=== PATIENT | female | born 1965 | race Caucasian/White ===

== ENCOUNTER 2022-01-12 06:36 | Outpatient (REF) | payer OTHER, SELFPAY ==
[2022-01-12 11:11] LABS: MANUAL DIFF FLAG NO
[2022-01-12 11:22] LABS: Basophils Percent Auto 0.4 % (0-2); Eosinophils Absolute Auto 0.2 X10*3/uL (0.0-0.4); Hemoglobin 13.1 g/dl (12.0-16.0); Imm Gran Abs Auto 0.01 X10*3/uL (0.00-0.03); Imm Gran Pct Auto 0.2 % (0.0-0.4); Lymphocytes Absolute Auto 2.6 X10*3/uL (1.2-4.9); Lymphocytes Percent Auto 49.1 % (20-40); Mean Corpuscular Hemoglobin 29.4 pg (27.0-33.0); Mean Corpuscular Volume 91.9 fL (80.0-98.0); Mean Platelet Volume 10.2 fL (9.4-12.3); Monocytes Absolute Auto 0.5 X10*3/uL (0.1-1.2); Monocytes Percent Auto 9.9 % (2-11); Neutrophils Percent Auto 37.4 % (45-73); Platelet Count 278 X10*3/uL (160-400); Red Blood Count 4.46 X10*6/uL (4.20-5.50); Red Cell Distribution Width 13.4 % (11.0-16.0); White Blood Count 5.3 X10*3/uL (4.8-10.8)
[2022-01-12 11:33] LABS: Appearance Urine CLEAR; Color Urine YELLOW; Glucose Urine UA NEG (NEG); Leukocyte Esterase Urine NEG (NEG); Nitrite Urine NEG (NEG); Specific Gravity - Urine 1.015 (1.005-1.025); Urine Blood NEG (NEG); Urine Ketones NEG (NEG); Urine Protein NEG (NEG-TRACE)
[2022-01-12 11:42] LABS: Alanine Aminotransferase 18 U/L (0-31); Albumin Level 4.1 g/dL (3.5-5.0); Alkaline Phosphatase 65 U/L (39-117); Anion Gap 13 (12-20); Aspartate Amino Transferase 18 U/L (5-31); Bilirubin Total 0.5 mg/dL (0.0-1.0); Blood Urea Nitrogen 15 mg/dL (9-16); Calcium 9.4 mg/dL (8.4-10.2); Carbon Dioxide 25 mmol/L (22-29); Chloride 106 mmol/L (96-108); Cholesterol 179 mg/dL; Estimated Glomerular Filt Rate > 60; Glucose Fasting 88 mg/dL (60-99); HDL Cholesterol 59 mg/dL; LDL Cholesterol Calculated 113 mg/dl; Potassium 4.5 mmol/L (3.3-5.1); Sodium 139 mmol/L (135-145); Total Protein 6.5 g/dL (6.5-8.0); Triglycerides 37 mg/dL
[2022-01-12 12:06] LABS: TSH reflex Free T4 2.45 uIU/mL (0.32-4.0); Vitamin D 25-OH Total 54.8 ng/mL (>30)
== END 2022-01-12 06:37 | disposition home or self-care (01) ==
LOC: HO.HMGCLDS 06:36
PROVIDERS: Visit Provider Nurse Practitioner Family
DX: M19.90 Unspecified osteoarthritis, unspecified site (principal); Z86.79 Personal history of other diseases of the circulatory system
CPT/HCPCS: 36415; 80053; 80061; 81003; 82306; 84443; 85025

== ENCOUNTER → 2022-02-02 07:01 | Outpatient (REF) | payer OTHER, SELFPAY ==
--- NOTE | 2022-02-02 07:05 | HM_ITS ---
* Total monitoring time 3 days and 11 hours. * Underlying rhythm is sinus. Average rate 74/Min. Range 56 to 124/Min. * Rare supraventricular ectopy with minimal burden. One short run of 11 beats. * Very rare ventricular ectopy. * No sustained arrhythmias. * No patient events. MTDD
== END ==
LOC: HO.CARD 07:01
PROVIDERS: PCP Nurse Practitioner Family; Visit Provider Nurse Practitioner Family
DX: R00.2 Palpitations (principal); Z86.79 Personal history of other diseases of the circulatory system
CPT/HCPCS: 93242

== ENCOUNTER → 2022-03-09 07:40 | Outpatient (REF) | payer OTHER, SELFPAY ==
--- NOTE | 2022-03-09 07:42 | CA_ITS ---
Transthoracic Echocardiogram Patient (Last, First, Middle): Kindra Mak J Gender: Female Date of : 1965 Age: 56 Procedure Date: 03/09/2022 Procedure Type: Transthoracic Echocardiogram Location: OP Height: 154.94 cm Weight: 76.66 kg BSA: 1.76 m2 Heart Rate: bpm BP: 108 / 68 mmHg Track Patrol: KAILEY Zapien MD: Tanvir Garsia [facility] Inspector And Clipper: Erasmo Duvall MD Symptoms: R01.1 - Cardiac murmur, unspecified Study Quality: Good ECG Rhythm: Sinus Conclusions: - Normal study Findings Left Ventricle Normal left ventricular size, thickness, and systolic function. The visually estimated ejection fraction is between 55-60%. Spectral Doppler is indicative of a normal filling pattern. Peak GLS is -18.8%, within normal limits Right Ventricle Normal right ventricular cavity size and systolic function. Atria Both atria are normal in size. There is a mobile atrial septum noted. There is no evidence of interatrial shunt. Aortic Valve Normal aortic valve structure and function. There is no aortic valve stenosis. There is no aortic valve regurgitation. Mitral Valve There is mild anterior and posterior mitral leaflet thickening. There is trace mitral valve regurgitation. There is no mitral valve stenosis. Pulmonic Valve The pulmonic valve was not well visualized. Tricuspid Valve Normal tricuspid valve structure. There is no tricuspid valve regurgitation. The right ventricular systolic pressure is normal. The right ventricular systolic pressure is 20 mmHg. Normal right atrial pressure. There is no evidence of pulmonary hypertension. Great Vessels All visible segments of the aorta are normal in size. The pulmonary artery was not well visualized. Venous The inferior vena cava is normal in size and collapses greater than 50% with inspiration. Pericardium/Pleural There is no evidence of pericardial effusion. Prior Study Comparison No prior study available for comparison. Measurements 2D Linear Measurements IVSd: 0.89 0.6-0.9/0.6-1.0 cm LVIDd: 4.81 3.9-5.3/4.2-5.9 cm LVIDd Index: 2.73 2.4-3.2/2.2-3.1 cm/m2 LVIDs: 3.09 2.0-3.6 cm LVPWd: 0.86 0.7-1.1 cm LA Diam: 3.30 2.7-3.8/3.0-4.0 cm LAIDs Index: 1.88 1.5-2.3 cm/m2 LV Mass: 177.32 67-162/88-224 g LV Mass Index: 100.75 43-95/49-115 g/m2 LVOT Diam: 1.90 3.0+(-)1.3 cm 2D Systolic Function EF 4C: 54.90 >55% EF 2C: 59.80 >55% EF BiP: 56.90 >55% Mitral Valve MV Pk E: 0.74 MV PK A: 0.80 MV Decel Time: 206.00 E/A: 0.90 E'Lateral: 11.20 E'Medial: 8.16 E/E' Med: 9.00 E/E' Lat: 6.60 PHT: 60.00 MVA PHT: 3.67 Decel Baca: 3.57 Aortic Valve AoV Pk George: 1.46 AoV Mn George: 1.00 AoV VTI: 0.31 AoV Pk Grad: 9.00 Aov Mn Grad: 4.00 ALYSIA Cont.VTI: 2.58 LVOT LVOT Pk George: 1.32 LVOT Mn George: 0.88 LVOT VTI: 0.28 LVOT Pk Grad: 7.00 LVOT Mn Grad: 4.00 LVOT Diam: 1.90 LVOT Area: 2.84 Diastolic Function MV Pk E: 0.74 MV Pk A: 0.80 E/A: 0.90 E'Medial: 8.16 E/E' Med: 9.00 E' Laterial: 11.20 E/E' Lat: 6.60 Right Ventricle TAPSE (mm): 25.20 TVS' George: 12.10 Tricuspid Valve TR Pk George: 2.06 TR Pk Grad: 17.00 RA Press: 3.00 RVSP: 20.00 Great Vessels Aorta Sinus of Valsalva: 2.53 2.0-3.[address] Ridge: 2.26 1.7-3.4 cm Ao Asc: 2.80 2.1-3.4 cm Ao Arch: 2.40 Updated in Other Vendor System with Status of Final Erasmo Duvall MD electronically signed on 03/09/2022 10:47:35 AM with status of Final
== END ==
LOC: HO.CARD 07:40
PROVIDERS: PCP Nurse Practitioner Family; Visit Provider Nurse Practitioner Family
DX: R01.1 Cardiac murmur, unspecified (principal)
CPT/HCPCS: 93306; 93356

== ENCOUNTER 2022-04-17 18:34 | Outpatient (REF) | payer OTHER, SELFPAY ==
[2022-04-17 19:49] LABS: Influenza A PCR NEGATIVE (Negative); Influenza B PCR NEGATIVE (Negative); Resp Syncy Virus RNA Qual PCR NEGATIVE (Negative); SARS COV2 PCR INHOUSE NEGATIVE (Negative)
== END 2022-04-17 18:35 | disposition home or self-care (01) ==
LOC: HO.LNP 18:34
PROVIDERS: Visit Provider Physician Assistant
DX: Z20.822 Contact with and (suspected) exposure to COVID-19 (principal); J02.9 Acute pharyngitis, unspecified
CPT/HCPCS: 0241U

== ENCOUNTER 2022-05-04 17:00 | Outpatient (RCR) | payer OTHER, SELFPAY ==
--- NOTE | 2022-04-21 16:56 | MHC.PT.EP ---
[facility] [place] Office [place] Office [place] Office [address] Gurmeet Mercedes [address] [phone] F: [phone] F: [phone] F: [phone] F: [phone] Physical Therapy Plan of Care Date of Evaluation: Date of Surgery: Diagnosis: R ITB syndrome Assessment: Pt is a 56 y/o female referred to PT for eval and treat of R illiotibial band syndrome who presents with R hip dysfunction resulting in decreased tolerance for standing for duration, walking at a fast pace, performing R LE dressing, and well as walking long distances secondary to decreased R hip ROM and strength, decreased core strength, mild gait abnormality, presence of R BENJAMIN x 2 years, increased L thigh tissue tension and pain. Pt is deemed an appropriate candidate to receive skilled PT in order to address her physical limitations to improve her functional ability. Frequency and Duration: The patient will be seen 2 x / wk x 5 wks. Short Term Goals: Initiate HEP. Improve baseline pain to < 3/10; initial: 4/10. 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 Improve R hip abd MMT by at least 1/2 MMT grade; initial 4/5. Pt will be able to stand 1 hour with at most a little bit of difficulty; initial: quite a bit of difficulty. Pt will be able to dress R shoe/ sock with minimal difficulty; initial: quite a bit of difficulty. Treatment Plan: Modalities to reduce pain, spasms and effusion. Manual therapy to restore motion and function. Therapeutic exercise to improve strength and flexibility. Neuromuscular re-education for posture and balance. Therapeutic activities to return to functional activities of daily living. Electronically signed by: Khang Farias PT. Please sign and return to therapist. Thank you for your referral.
--- NOTE | 2022-11-21 14:12 | MHC.PT.DC ---
[facility] [place] Office [place] Office [place] Office [address] Gurmeet Mercedes [address] [phone] F: [phone] F: [phone] F: [phone] F: [phone] Physical Therapy Discharge Report Diagnosis: R ITB syndrome Date of Surgery: Date of Evaluation: 04/21/22 Date of Discharge: 11/21/22 Treatments to Date: 2 Cancellations to Date: 4 No Shows to Date: Discharge Status: Visit Non-compliance Discharge Summary: Electronically signed by: Khang Farias PT. Please sign and return to therapist. Thank you for your referral.
== END 2022-11-21 14:14 | disposition home or self-care (01) ==
LOC: HO.PTCHIC 17:00
PROVIDERS: PCP Nurse Practitioner Family; Visit Provider Nurse Practitioner Family
DX: M76.30 Iliotibial band syndrome, unspecified leg (principal)
CPT/HCPCS: 97110; 97161

== ENCOUNTER 2022-07-12 09:09 | Outpatient (REF) | payer OTHER, SELFPAY ==
--- NOTE | ~2022-07-12 | MM_ITS ---
EXAMINATION: MM SCREENING DIGITAL BREAST TOMOSYNTHESIS, BILATERAL CLINICAL INFORMATION: Screening. Asymptomatic. The lifetime risk of breast cancer based on the Tyrer-Cuzick Model is 6.4%. COMPARISON: Mammography: June 23, 2021 and June 15, 2020 TECHNIQUE: Digital breast tomosynthesis is performed in both the craniocaudal and mediolateral oblique views along with computer-aided detection (CAD). Synthesized 2D images are generated from the tomosynthesis. FINDINGS: There are scattered areas of fibroglandular density (ACR BI-RADS breast composition Category b). There is stable parenchymal pattern of the left breast without new abnormal dominant mass or suspicious grouping of microcalcifications. Nodular breast parenchyma present. Within the right breast there is a nodular parenchymal pattern seen with multiple 3 mm circumscribed densities upper outer aspect some containing fatty clefts and difficult to compare to previous studies were nodular densities were present as well. MM/MM tomosynthesis screening BI IMPRESSION: Essentially stable appearance of the breasts as described. ASSESSMENT: BI-RADS 2: Benign RECOMMENDATION: Routine annual mammography screening. This patient's information was entered into a reminder system with a target due date for their next mammogram.
== END 2022-07-12 09:10 | disposition home or self-care (01) ==
LOC: HO.MAMMO 09:09
PROVIDERS: PCP Nurse Practitioner Family; Visit Provider Nurse Practitioner Family
DX: Z12.31 Encounter for screening mammogram for malignant neoplasm of breast (principal)
CPT/HCPCS: 77063; 77067

== ENCOUNTER 2022-07-17 08:27 | Outpatient (REF) | payer OTHER, SELFPAY ==
--- NOTE | ~2022-07-17 | XR_ITS ---
EXAMINATION: XR FOOT, LEFT CLINICAL INFORMATION: Pain in the left ankle and foot, osteoarthritis. COMPARISON: None TECHNIQUE: AP, lateral, and oblique views of the left foot. FINDINGS: The bones and soft tissues are normal. No fracture. Alignment is anatomic. There is small plantar calcaneal spur. Joint spaces are maintained. XR/XR foot LT min 3V IMPRESSION: Small plantar calcaneal spur
== END 2022-07-17 08:28 | disposition home or self-care (01) ==
LOC: HO.HMGCX 08:27
PROVIDERS: PCP Nurse Practitioner Family; Visit Provider Internal Medicine
DX: M19.072 Primary osteoarthritis, left ankle and foot (principal)
CPT/HCPCS: 73630

== ENCOUNTER 2022-10-04 09:25 | Outpatient (REF) | payer OTHER, SELFPAY ==
[2022-10-04 11:14] LABS: Appearance Urine Hazy; Color Urine Yellow; Glucose Urine UA Negative (Negative); Leukocyte Esterase Urine Negative (Negative); Nitrite Urine Negative (Negative); PH 7.5 (5.0-9.0); Specific Gravity - Urine 1.015 (1.005-1.025); Urine Blood Negative (Negative); Urine Ketones Negative (Negative); Urine Protein Negative (Neg-Trace)
[2022-10-04 11:37] LABS: MANUAL DIFF FLAG NO
[2022-10-04 11:56] LABS: Basophils Percent Auto 0.5 % (0-2); Eosinophils Absolute Auto 0.2 X10*3/uL (0.0-0.4); Eosinophils Percent Auto 2.7 % (0-4); Hematocrit 42.6 % (37.0-47.0); Hemoglobin 13.7 g/dl (12.0-16.0); Imm Gran Abs Auto 0.07 X10*3/uL (0.00-0.03); Imm Gran Pct Auto 1.1 % (0.0-0.4); Lymphocytes Absolute Auto 2.9 X10*3/uL (1.2-4.9); Lymphocytes Percent Auto 44.8 % (20-40); Mean Corpuscular HGB Conc 32.2 g/dl (31.0-35.0); Mean Corpuscular Hemoglobin 29.8 pg (27.0-33.0); Mean Corpuscular Volume 92.8 fL (80.0-98.0); Mean Platelet Volume 9.7 fL (9.4-12.3); Monocytes Absolute Auto 0.6 X10*3/uL (0.1-1.2); Monocytes Percent Auto 9.1 % (2-11); Neutrophils Absolute Auto 2.7 x10*3/uL (2.0-8.3); Neutrophils Percent Auto 41.8 % (45-73); Platelet Count 315 X10*3/uL (160-400); Red Blood Count 4.59 X10*6/uL (4.20-5.50); Red Cell Distribution Width 13.8 % (11.0-16.0); White Blood Count 6.4 X10*3/uL (4.8-10.8)
[2022-10-04 12:39] LABS: Alanine Aminotransferase 16 U/L (0-31); Albumin Level 4.1 g/dL (3.5-5.0); Alkaline Phosphatase 79 U/L (39-117); Anion Gap 11 (12-20); Aspartate Amino Transferase 15 U/L (5-31); Bilirubin Total 0.7 mg/dL (0.0-1.0); Blood Urea Nitrogen 13 mg/dL (9-16); C Reactive Protein 0.39 mg/dL (< or = 0.50); Calcium 9.2 mg/dL (8.4-10.2); Carbon Dioxide 29 mmol/L (22-29); Chloride 108 mmol/L (96-108); Cholesterol 200 mg/dL; Estimated Glomerular Filt Rate > 60; Glucose Fasting 90 mg/dL (60-99); HDL Cholesterol 57 mg/dL; LDL Cholesterol Calculated 134 mg/dl; Potassium 4.8 mmol/L (3.3-5.1); Sodium 143 mmol/L (135-145); Total Protein 6.4 g/dL (6.5-8.0); Triglycerides 47 mg/dL
[2022-10-04 12:48] LABS: Erythrocyte Sedimentation Rate 4 MM/HR (0-20)
[2022-10-04 12:55] LABS: TSH reflex Free T4 1.33 uIU/mL (0.32-4.0)
== END 2022-10-04 09:26 | disposition home or self-care (01) ==
LOC: HO.HMGCLDS 09:25
PROVIDERS: PCP Nurse Practitioner Family; Visit Provider Nurse Practitioner Family
DX: M19.90 Unspecified osteoarthritis, unspecified site (principal)
CPT/HCPCS: 36415; 80053; 80061; 81003; 84443; 85025; 85652; 86140

== ENCOUNTER 2023-04-18 08:30 | Outpatient (AMB) | payer OTHER, SELFPAY ==
--- NOTE | 2023-04-18 08:32 | MHC.OFFWIV ---
Intake Vital Signs 04/18/23 08:35 BP 110/70 Blood Pressure Location Lt brachial Position Sitting Pulse 78 Pulse Source Pulse Oximeter Temp 98.3 F Temp Source Oral Pulse Oximetry (%) 95 Oxygen Delivery Method Room Air Intake Visit Reasons: EP sore throat, head (lobby, masked) Intake Note: Patient here for sore throat, bodyaches and headaches which started yesterday. Patient Tobacco Use Status: Never used Tobacco Allergies amoxicillin [From Augmentin] Allergy (Severe, Verified 04/18/23 08:35) Anaphylaxis clavulanic acid [From Augmentin] Allergy (Severe, Verified 04/18/23 08:35) Anaphylaxis Penicillins Allergy (Severe, Verified 04/18/23 08:35) Anaphylaxis Do you need a note to return to daycare/school/sports/work: No HPI EP sore throat, head (lobby, masked) HPI Details Patient presents today sore throat, headache, body ache which started yesterday. She denies any fever, chills, cough, shortness of breath, or GI symptoms. She denies any known exposure to sick contacts. [facility] Medical History Arthritis Surgical History History of carpal tunnel surgery History of cholecystectomy History of endometrial ablation History of right hip replacement Hx of tonsillectomy Family History Mother Hypertension Maternal Grandmother Colon cancer Social History Housing: House Patient Tobacco Use Status: Never used Tobacco e-Cigarette/Vaping Use: Never Used Second Hand Smoke Exposure: No Current occupational status: employed Cognitive needs: No Hearing needs: No Vision needs: No Review of Systems Const All systems reviewed & are unremarkable except as noted in HPI and below Physical Exam Vital Signs: Last Vital Signs Temp 98.3 F 04/18/23 08:35 Pulse 78 04/18/23 08:35 BP 110/70 04/18/23 08:35 Pulse Ox 95 04/18/23 08:35 Oxygen Delivery Method Room Air 04/18/23 08:35 Const General: cooperative and no acute distress HEENT Head: Yes normal to inspection Ears: hearing grossly normal bilaterally, external ears normal and TM's normal bilaterally General nose exam: Normal external nose present and Normal nasal mucous membranes and turbinates present Face and sinus: Yes normal facial exam and Yes sinuses nontender Mouth: Normal oral and palatal mucosa present and moist mucous membranes Throat: Yes posterior oropharynx abnormal (Erythematous, mild tonsillar hypertrophy) Neck Neck: Yes no lymphadenopathy Resp Effort & Inspection: normal respiratory effort and able to speak in complete sentences Auscultation: clear to auscultation bilaterally Cardio Jugular venous distension: no JVD Palpation: normal PMI Rate: regular rate Rhythm: regular rhythm Skin General skin exam: no rashes or lesions noted Extrem General: Yes capillary refill normal and Yes no clubbing, cyanosis or edema Psych Appearance: grossly normal Mental Status: mental status grossly normal Speech and movement: Normal speech and movement present Results AMB Rapid Strep AMB Rapid Strep Negative Last Edit by Sandra Alexander CMA on 04/18/23 08:45 Results Reviewed Results Reviewed: Laboratory Last Values Strep Scn Rapid Clinic Negative 04/18/23 08:45 Assessment & Plan Assessment & Plan (1) Pharyngitis: Code(s): J02.9 - Acute pharyngitis, unspecified Qualifiers: Pharyngitis/tonsillitis etiology: unspecified etiology Qualified Code(s): J02.9 - Acute pharyngitis, unspecified Plan Patient with a 2 day history of sore throat, headache, body ache. Rapid strep in the office was negative. Discussed with patient likelihood that this is a viral illness and symptoms are self-limiting. She has the next couple of days off work, encouraged her to rest, hydrate, and take Tylenol/Motrin, lozenges for any symptomatic treatment. I offered viral testing, however she declined. She states she has at-home COVID tests. If she does not improve with time and conservative measures, or if symptoms worsen or new symptoms develop, she should return to the clinic for further evaluation. She agrees to plan. Orders: Orders AMB Rapid Strep Screen Today Z13.9 - Encounter for screening, unspecified Coding Level of Care Code Est Pt Level 3 (32310) Diagnoses Pharyngitis J02.9 Pharyngitis/tonsillitis etiology: unspecified etiology
[2023-04-18 08:35] VITALS: BP 110/70; PULSE 78; TEMP 36.8; O2SAT 95
== END 2023-04-18 09:04 | disposition home or self-care (01) ==
PROVIDERS: PCP Nurse Practitioner Family; Visit Provider Nurse Practitioner Family
DX: J02.9 Acute pharyngitis, unspecified (principal)
CPT/HCPCS: 87880; 99213

== ENCOUNTER 2023-05-09 16:10 | Outpatient (REF) | payer OTHER, SELFPAY ==
--- NOTE | ~2023-05-09 | XR_ITS ---
EXAMINATION: XR SHOULDER, RIGHT CLINICAL INFORMATION: Pain COMPARISON: None available. TECHNIQUE: Four views of the right shoulder. FINDINGS: No acute visible fracture or dislocation. Mild degenerative arthropathy of the glenohumeral chronic clavicular joint. Joint spaces and alignment are otherwise maintained. Soft tissues are unremarkable. Visualized portions of the right chest are unremarkable. XR/XR shoulder RT min 2V IMPRESSION: 1. No acute visible fracture or dislocation. 2. Mild degenerative arthropathy of the glenohumeral joint.
== END 2023-05-09 16:11 | disposition home or self-care (01) ==
LOC: HO.HMGCX 16:10
PROVIDERS: PCP Nurse Practitioner Family; Visit Provider Nurse Practitioner Family
DX: M25.511 Pain in right shoulder (principal)
CPT/HCPCS: 73030

== ENCOUNTER 2023-06-13 08:01 | Outpatient (AMB) | payer OTHER, SELFPAY ==
[2023-06-13 08:03] VITALS: BP 122/76; PULSE 64; TEMP 36.1; O2SAT 97; BMI 35.1
--- NOTE | 2023-06-13 08:03 | AM.OFFWIN_ITS ---
Intake Vital Signs 06/13/23 08:03 Height 5 ft 1.5 in Weight 189 lb BMI 35.1 BP 122/76 Blood Pressure Location Rt brachial Position Sitting Pulse 64 Pulse Source Pulse Oximeter Temp 97.0 F Temp Source Temporal Artery Scan Pulse Oximetry (%) 97 Oxygen Delivery Method Room Air Intake Visit Reasons: EST/wheezing X4 weeks Intake Note: pt is here for c/o wheezing for 4x weeks Patient Tobacco Use Status: Never used Tobacco Allergies amoxicillin [From Augmentin] Allergy (Severe, Verified 06/13/23 08:03) Anaphylaxis clavulanic acid [From Augmentin] Allergy (Severe, Verified 06/13/23 08:03) Anaphylaxis Penicillins Allergy (Severe, Verified 06/13/23 08:03) Anaphylaxis Medication List - Last Reconciled 06/13/23 by Kang Andrews MD albuterol sulfate 90 mcg/actuation 1 inh inhalation QID PRN loratadine (Claritin) 10 mg PO DAILY multivitamin 1 tab PO DAILY Do you need a note to return to daycare/school/sports/work: Yes HPI EST/wheezing X4 weeks HPI Details Patient presents for a sick visit. Reporting symptoms of sinus congestion, sore throat and difficulty swallowing. Low-grade fever. No family member is sick. No recent travel. Patient reports symptoms of malaise and fatigue. Symptoms present for the past 4 weeks. [facility] Medical History Arthritis Surgical History History of carpal tunnel surgery History of cholecystectomy History of endometrial ablation History of right hip replacement Hx of tonsillectomy Family History Mother Hypertension Maternal Grandmother Colon cancer Social History Housing: House Patient Tobacco Use Status: Never used Tobacco e-Cigarette/Vaping Use: Never Used Second Hand Smoke Exposure: No Current occupational status: employed Cognitive needs: No Hearing needs: No Vision needs: No Physical Exam Vital Signs: Last Vital Signs Temp 97.0 F 06/13/23 08:03 Pulse 64 06/13/23 08:03 BP 122/76 06/13/23 08:03 Pulse Ox 97 06/13/23 08:03 Oxygen Delivery Method Room Air 06/13/23 08:03 BMI result Body Mass Index 35.1 Const General: cooperative and healthy appearing Nutritional Appearance: well nourished Orientation/consciousness: patient oriented x3 Limitations: no limitations HEENT Head: Yes normal to inspection Eyes General: appearance normal, both eyes and all related structures Neck Neck: Yes normal visual inspection Chest Chest palpation & inspection: normal palpation of entire chest wall Resp Effort & Inspection: normal respiratory effort Neuro General: patient oriented x3 Assessment & Plan Assessment & Plan (1) Acute bronchitis: Code(s): J20.9 - Acute bronchitis, unspecified Qualifiers: Bronchitis organism: unspecified organism Qualified Code(s): J20.9 - Acute bronchitis, unspecified Plan Chest x-ray images personally reviewed by me. No pneumonia is seen. Antibiotic and inhaler called in. If symptoms do not improve patient was advised to follow-up here. 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 Folic acid levels Are reported greater than 40. In addition the lab showed thyroid abnormalities. The same was informed to the patient. Orders: Orders XR chest 2V Today R05.9 - Cough, unspecified Coding Level of Care Code Est Pt Level 4 (80350) Diagnoses Acute bronchitis, unspecified organism J20.9 Bronchitis organism: unspecified organism
== END 2023-06-13 09:01 | disposition home or self-care (01) ==
PROVIDERS: PCP Nurse Practitioner Family; Visit Provider Internal Medicine
DX: J20.9 Acute bronchitis, unspecified (principal)
CPT/HCPCS: 99214

== ENCOUNTER 2023-06-13 08:31 | Outpatient (REF) | payer OTHER, SELFPAY ==
--- NOTE | ~2023-06-13 | XR_ITS ---
EXAMINATION: XR CHEST CLINICAL INFORMATION: Cough COMPARISON: None available. TECHNIQUE: 2 views of the chest were obtained. FINDINGS: Cardiac silhouette is normal in size. The lungs are well aerated. There is no lobar consolidation. No pleural effusion or pneumothorax. Minimal degenerative changes of the spine. XR/XR chest 2V IMPRESSION: No acute pulmonary pathology.
== END 2023-06-13 08:32 | disposition home or self-care (01) ==
LOC: HO.HMGCX 08:31
PROVIDERS: PCP Nurse Practitioner Family; Visit Provider Internal Medicine
DX: R05.9 Cough, unspecified (principal)
CPT/HCPCS: 71046

== ENCOUNTER 2023-06-27 07:26 | Outpatient (AMB) | payer OTHER, SELFPAY ==
--- NOTE | 2023-06-27 07:37 | MHC.PC.OV ---
Vital Signs 06/27/23 07:38 Height 5 ft 1.5 in Weight 186 lb 2 oz BMI 34.6 BP 110/76 Blood Pressure Location Rt brachial Position Sitting Pulse 61 Pulse Source Pulse Oximeter Pulse Oximetry (%) 96 Oxygen Delivery Method Room Air Intake Visit Reasons: PE Allergies amoxicillin [From Augmentin] Allergy (Severe, Verified 06/27/23 07:43) Anaphylaxis clavulanic acid [From Augmentin] Allergy (Severe, Verified 06/27/23 07:43) Anaphylaxis Penicillins Allergy (Severe, Verified 06/27/23 07:43) Anaphylaxis Medication List - Last Reconciled 06/27/23 by TRICIA Salmon-SHIRA albuterol sulfate 90 mcg/actuation 1 inh inhalation QID PRN loratadine (Claritin) 10 mg PO DAILY multivitamin 1 tab PO DAILY Tobacco use date assessed: 06/27/23 Dental Screening Dental Screen Date: 06/27/23 Did you have a dental visit in the last 12 months?: Yes Did you have a dental problem in the last 6 months where you did not have access to dental care?: No Was dental information given to patient?: Patient has dentist HPI PE HPI Details mammo is up to date and scheduled for this year. 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 Pt would like to start a SSRI for anxiety/depression. Denies any SI or HI. Pt reports that she has a Hx of B12 def. Tong recheck, takes a b12 supplement daily. [facility] Medical History Arthritis Surgical History History of endometrial ablation Hx of tonsillectomy History of carpal tunnel surgery History of cholecystectomy History of right hip replacement Family History Mother Hypertension Maternal Grandmother Colon cancer Social History Housing: House Patient Tobacco Use Status: Never used Tobacco e-Cigarette/Vaping Use: Never Used Second Hand Smoke Exposure: No Current occupational status: employed Cognitive needs: No Hearing needs: No Vision needs: No Questionnaire Thrive Questionnaire Date Thrive assessed: 09/27/22 ROSA MARIA-7 AMB Questionnaire ROSA MARIA-7 Date ROSA MARIA - 7 assessed: 09/27/22 Source: Developed by Drs. Sly Montes, Rosibel Craig, Kunal Jewell and colleagues, with an educational edgar from [employer]. Review of Systems Const Denies chills and Denies fever(s) Eyes Denies blurry vision ENT Denies vertigo, Denies dizziness and Denies sore throat Card Denies chest pain at rest, Denies chest pain with activity, Denies diaphoresis, Denies dyspnea and Denies dyspnea on exertion Resp Denies cough, Denies dyspnea, Denies dyspnea on exertion and Denies wheezing GI Denies abdominal pain, Denies melena, Denies hematochezia, Denies constipation, Denies diarrhea and Denies loose stools Denies hematuria Musc Denies numbness and Denies tingling Skin/Breast Denies lesions Neuro Denies vertigo, Denies dizziness, Denies numbness and Denies tingling Psych Denies anxiety, Denies depression, Denies homicidal ideation, Denies suicidal ideation and Denies other (substance abuse) Aller/Immun Denies wheezing Physical exam (Primary Care) BMI result Body Mass Index 34.6 Tobacco/Smoking Status: Tobacco use Status Tobacco use date assessed 02/21/23 06/13/23 07:56 Patient Tobacco Use Status Never used Tobacco 06/13/23 08:05 e-Cigarette/Vaping Use Never Used 06/13/23 07:56 Thrive Assessment: Date of Thrive Assessment Date Thrive assessed 09/27/22 06/13/23 07:56 Const General: cooperative Nutritional Appearance: well nourished and obese Orientation/consciousness: patient oriented x3 HENMT Head: Yes normal to inspection, Yes normocephalic and Yes atraumatic Ears: TM normal on the right and TM normal on the left Eyes General: appearance normal, both eyes and all related structures Alignment and Position: alignment normal and position normal Neck Neck: Yes normal visual inspection and Yes no lymphadenopathy Resp Effort & Inspection: normal respiratory effort Auscultation: clear to auscultation bilaterally Cardio Rate: regular rate Rhythm: regular rhythm Heart sounds: S1 normal heart sound present, S2 normal heart sound present and no murmurs GI Palpation (GI): Soft to palpation and nontender Auscultation: normal bowel sounds Skin Rashes: no rashes Neuro General: patient oriented x3, moves all extremities, no focal motor deficits and deep tendon reflexes 2+ bilaterally Romberg Test: Negative Extrem Right lower extremity: no edema Left lower extremity: no edema Psych Affect: normal affect Attitude: cooperative Thought process: Normal thought process present Assessment and Plan Assessment & Plan (1) Physical exam: Code(s): Z00.00 - Encounter for general adult medical examination without abnormal findings (2) Thyroid nodule: Code(s): E04.1 - Nontoxic single thyroid nodule Plan: us ordered (3) B12 deficiency: Code(s): E53.8 - Deficiency of other specified B group vitamins Plan: b12 level being checked (4) Anxiety and depression: Code(s): F41.9 - Anxiety disorder, unspecified; F32.A - Depression, unspecified Plan: starting citalopram Orders: Orders Complete Blood Count Auto Diff Today Z00.00 - Encounter for general adult medical examination without abnormal findings Comprehensive Spencer. Panel Fast Today Z00.00 - Encounter for general adult medical examination without abnormal findings UA CC w/rflx Micro + Cult Today Z00.00 - Encounter for general adult medical examination without abnormal findings US thyroid Today E04.1 - Nontoxic single thyroid nodule Vitamin B12 and Folate Today E53.8 - Deficiency of other specified B group vitamins TSH reflex Free T4 Today Z00.00 - Encounter for general adult medical examination without abnormal findings Lipid Panel Today Z00.00 - Encounter for general adult medical examination without abnormal findings Medications: New citalopram 10 mg PO DAILY 90 days 90 tabs 0RF Coding Level of Care Code Est Pt Prev Care 40-64y(39547) Diagnoses Physical exam Z00.00 Thyroid nodule E04.1 B12 deficiency E53.8 Anxiety and depression F41.9; F32.A
[2023-06-27 07:38] VITALS: BP 110/76; PULSE 61; O2SAT 96; BMI 34.6
== END 2023-06-27 08:18 | disposition home or self-care (01) ==
PROVIDERS: Visit Provider Nurse Practitioner Family
DX: Z00.00 Encounter for general adult medical examination without abnormal findings (principal); E04.1 Nontoxic single thyroid nodule; E53.8 Deficiency of other specified B group vitamins; F41.9 Anxiety disorder, unspecified; F32.A Depression, unspecified
CPT/HCPCS: 99396

== ENCOUNTER 2023-06-27 08:20 | Outpatient (REF) | payer OTHER, SELFPAY ==
[2023-06-27 11:21] LABS: MANUAL DIFF FLAG NO
[2023-06-27 11:26] LABS: Appearance Urine Clear; Color Urine Yellow; Glucose Urine UA Negative (Negative); Leukocyte Esterase Urine Negative (Negative); Nitrite Urine Negative (Negative); PH 6.5 (5.0-9.0); Specific Gravity - Urine 1.015 (1.005-1.025); Urine Blood Negative (Negative); Urine Ketones Negative (Negative); Urine Protein Negative (Neg-Trace)
[2023-06-27 11:37] LABS: Basophils Percent Auto 0.5 % (0-2); Eosinophils Absolute Auto 0.1 X10*3/uL (0.0-0.4); Eosinophils Percent Auto 1.6 % (0-4); Hematocrit 43.6 % (37.0-47.0); Hemoglobin 14.1 g/dl (12.0-16.0); Imm Gran Abs Auto 0.01 X10*3/uL (0.00-0.03); Imm Gran Pct Auto 0.2 % (0.0-0.4); Lymphocytes Absolute Auto 2.5 X10*3/uL (1.2-4.9); Mean Corpuscular HGB Conc 32.3 g/dl (31.0-35.0); Mean Corpuscular Hemoglobin 29.7 pg (27.0-33.0); Mean Platelet Volume 9.9 fL (9.4-12.3); Monocytes Absolute Auto 0.5 X10*3/uL (0.1-1.2); Monocytes Percent Auto 8.9 % (2-11); Neutrophils Absolute Auto 2.4 x10*3/uL (2.0-8.3); Neutrophils Percent Auto 43.8 % (45-73); Platelet Count 291 X10*3/uL (160-400); Red Blood Count 4.74 X10*6/uL (4.20-5.50); Red Cell Distribution Width 13.7 % (11.0-16.0); White Blood Count 5.5 X10*3/uL (4.8-10.8)
[2023-06-27 11:55] LABS: Alanine Aminotransferase 20 U/L (0-31); Albumin Level 4.3 g/dL (3.5-5.0); Alkaline Phosphatase 60 U/L (39-117); Anion Gap 10 (12-20); Aspartate Amino Transferase 20 U/L (5-31); Bilirubin Total 0.5 mg/dL (0.0-1.0); Blood Urea Nitrogen 15 mg/dL (9-16); Calcium 9.6 mg/dL (8.4-10.2); Carbon Dioxide 28 mmol/L (22-29); Chloride 107 mmol/L (96-108); Cholesterol 186 mg/dL (<200); Estimated Glomerular Filt Rate > 60; Glucose Fasting 82 mg/dL (60-99); HDL Cholesterol 66 mg/dL (>40); LDL Cholesterol Calculated 111 mg/dL (<100); Potassium 4.3 mmol/L (3.3-5.1); Sodium 141 mmol/L (135-145); Total Protein 7.2 g/dL (6.5-8.0); Triglycerides 45 mg/dL (<150)
[2023-06-27 12:14] LABS: TSH reflex Free T4 1.29 uIU/mL (0.32-4.0)
[2023-06-27 12:25] LABS: Folate 13.9 ng/mL (> or = 4.0); Vitamin B12 1247 pg/mL (200-900)
== END 2023-06-27 08:21 | disposition home or self-care (01) ==
LOC: HO.HMGCLDS 08:20
PROVIDERS: PCP Nurse Practitioner Family; Visit Provider Nurse Practitioner Family
DX: Z00.00 Encounter for general adult medical examination without abnormal findings (principal); E53.8 Deficiency of other specified B group vitamins; Z13.220 Encounter for screening for lipoid disorders; Z13.29 Encounter for screening for other suspected endocrine disorder
CPT/HCPCS: 36415; 80053; 80061; 81003; 82607; 82746; 84443; 85025

== ENCOUNTER 2023-07-18 07:52 | Outpatient (REF) | payer OTHER, SELFPAY ==
--- NOTE | ~2023-07-18 | MM_ITS ---
EXAMINATION: MM SCREENING DIGITAL BREAST TOMOSYNTHESIS, BILATERAL CLINICAL INFORMATION: Screening. Asymptomatic. COMPARISON: Mammography: This study is compared with prior exams dating back to TECHNIQUE: Digital breast tomosynthesis is performed in both the craniocaudal and mediolateral oblique views along with computer-aided detection (CAD). Synthesized 2D images are generated from the tomosynthesis. FINDINGS: There are scattered areas of fibroglandular density (ACR BI-RADS breast composition Category b). There are no significant masses, abnormal calcifications, or other abnormalities. There is a tissue marker in the upper outer quadrant of the right breast from prior benign percutaneous biopsy. MM/MM tomosynthesis screening BI IMPRESSION: No mammographic evidence of malignancy. ASSESSMENT: BI-RADS BI-RADS 2 - Benign Findings RECOMMENDATION: Routine annual mammography screening. 1 year F/U This examination should not preclude the clinical evaluation of a suspicious palpable abnormality. This patient's information was entered into a reminder system with a target due date for their next mammogram.
== END 2023-07-18 07:53 | disposition home or self-care (01) ==
LOC: HO.MAMMO 07:52
PROVIDERS: PCP Nurse Practitioner Family; Visit Provider Nurse Practitioner Family
DX: Z12.31 Encounter for screening mammogram for malignant neoplasm of breast (principal)
CPT/HCPCS: 77063; 77067

== ENCOUNTER → 2023-07-18 08:30 | Outpatient (BNV) | payer OTHER, SELFPAY | PROVIDERS: PCP Nurse Practitioner Family; Visit Provider Radiology Diagnostic Radiology | DX: Z12.31 Encounter for screening mammogram for malignant neoplasm of breast (principal) | CPT/HCPCS: 77063; 77067 ==

== ENCOUNTER 2023-08-15 13:00 | Outpatient (REF) | payer OTHER, SELFPAY ==
--- NOTE | ~2023-08-15 | US_ITS ---
EXAMINATION: US THYROID CLINICAL INFORMATION: Nontoxic single thyroid nodule. COMPARISON: CT soft tissue neck with contrast 09/10/2018. TECHNIQUE: Linear transducer rajan-scale and color Doppler examination with attention to the region of the thyroid. FINDINGS: SIZE: Measurements of the thyroid lobes and nodules are given in sagittal, anteroposterior and transverse dimensions respectively. Right Thyroid Lobe: 5.5 x 2.0 x 1.8 cm, volume 10.4 mL. Parenchyma: The gland echotexture is homogeneous. Thyroid vascularity is normal. Left Thyroid Lobe: 5.1 x 1.4 x 1.7 cm, volume 6.4 mL. Parenchyma: The gland echotexture is homogeneous. Thyroid vascularity is normal. Isthmus: 0.2 cm in maximum AP dimension. Estimated total number of nodules greater than or equal to 1 cm: 2. Measurement And Verification Engineer nodules are described as follows: 1. Location: Left inferior. Size: 1.3 x 0.7 x 1.1 cm, volume 0.52 mL. Nodule characteristics: Composition: Cystic(0). ACR TI-RADS total points: 0 ACR TI-RADS category: 1 2. Location: Right mid. Size: 1.7 x 1.0 x 1.3 cm, volume 1.15 mL. Nodule characteristics: Composition: Solid (2). Echogenicity: Hypoechoic (2). Shape: Not taller than wide (0). Margins: Smooth (0). Echogenic Foci: None (0). ACR TI-RADS total points: 4 ACR TI-RADS category: 4 NODES: No lymphadenopathy is seen in the tissue surrounding the thyroid gland. US/US thyroid IMPRESSION: 1.7 cm TR category 4 nodule warrants biopsy at this time. ACR TI-RADS RECOMMENDATION REFERENCE: Ultrasound-guided fine-needle aspiration, followup ultrasound, no further follow up. * TR1 (0 point) and TR2 (2 points): No FNA or follow up. * TR3 (3 points): FNA if more than or equal to 2.5 cm in maximum dimension, followup ultrasound in 1, 3 and 5 years if 1.5 to 2.4 cm in maximum dimension. * TR4 (4-6 points): FNA if more than or equal to 1.5 cm in maximum dimension, followup ultrasound in 1, 2, 3 and 5 years if 1 to 1.4 cm in maximum dimension. * TR5 (more than or equal to 7 points): FNA if more than or equal to 1 cm in maximum dimension, followup ultrasound every year for 5 years if 0.5 to 0.9 cm in maximum dimension. * TR3, TR4 or TR5 nodules that are below the size threshold for followup receive no follow up.
== END 2023-08-15 13:01 | disposition home or self-care (01) ==
LOC: HO.HMGCX 13:00
PROVIDERS: PCP Nurse Practitioner Family; Visit Provider Nurse Practitioner Family
DX: E04.1 Nontoxic single thyroid nodule (principal)
CPT/HCPCS: 76536

== ENCOUNTER 2023-10-10 09:28 | Outpatient (AMB) | payer OTHER, SELFPAY ==
--- NOTE | 2023-10-10 09:33 | MHC.PC.OV ---
Vital Signs 10/10/23 09:36 Height 5 ft 1.5 in Weight 176 lb BMI 32.7 BP 122/74 Blood Pressure Location Rt brachial Position Sitting Pulse 64 Pulse Source Pulse Oximeter Pulse Oximetry (%) 98 Oxygen Delivery Method Room Air Intake Visit Reasons: 3 month fu Intake Note: Patient here to F/U Anxiety. Pt states it has worsened at night especially. Allergies amoxicillin [From Augmentin] Allergy (Severe, Verified 06/27/23 07:43) Anaphylaxis clavulanic acid [From Augmentin] Allergy (Severe, Verified 06/27/23 07:43) Anaphylaxis Penicillins Allergy (Severe, Verified 06/27/23 07:43) Anaphylaxis Medication List - Last Reconciled 10/10/23 by IMAN Salmon albuterol sulfate 90 mcg/actuation 1 inh inhalation QID PRN citalopram 20 mg PO DAILY 90 days loratadine (Claritin) 10 mg PO DAILY multivitamin 1 tab PO DAILY trazodone 50 mg PO BEDTIME PRN 30 days turmeric mg PO BEDTIME Tobacco use date assessed: 10/10/23 Dental Screening Dental Screen Date: 10/10/23 Did you have a dental visit in the last 12 months?: Yes Did you have a dental problem in the last 6 months where you did not have access to dental care?: No Was dental information given to patient?: Patient has dentist HPI 3 month fu HPI Details Pt c/o increased anxiety. She reports that this makes it difficult for her to sleep and she wakes up throughout the night, very anxious. She is currently taking citalopram 20mg. Will send trazodone 50mg. Will have pt start with half a tab and go up to a full tab if needed. Pt is interested in seeing a therapist. Will have team speak with pt. Denies any SI and HI. PFSH Medical History Arthritis Surgical History History of endometrial ablation Hx of tonsillectomy History of carpal tunnel surgery History of cholecystectomy History of right hip replacement Family History Mother Hypertension Maternal Grandmother Colon cancer Social History Housing: House Patient Tobacco Use Status: Never used Tobacco e-Cigarette/Vaping Use: Never Used Second Hand Smoke Exposure: No Current occupational status: employed Cognitive needs: No Hearing needs: No Vision needs: No Questionnaire PHQ-9 Over the last 2 weeks, how often have you been bothered by any of the following problems? 1. Little interest or pleasure in doing things: not at all 2. Feeling down, depressed, or hopeless: not at all 3. Trouble falling or staying asleep, or sleeping too much: nearly every day 4. Feeling tired or having little energy: several days 5. Poor appetite or overeating: not at all 6. Feeling bad about yourself - or that you are a failure or have let yourself or your family down: not at all 7. Trouble concentrating on things, such as reading the newspaper or watching television: not at all 8. Moving or speaking so slowly that other people could have noticed. Or the opposite - being so fidgety or restless that you have been moving around a lot more than usual: not at all 9. Thoughts that you would be better off or of hurting yourself in some way: not at all Total score: 4 Depression Screening Interpretation: Negative Depression Screening Done: Yes 13836 - PHQ-9 Billing: Yes Source: Developed by Drs. Sly Montes, Rosibel Craig, Kunal Jewell and colleagues, with an educational edgar from [employer]. Thrive Questionnaire Date Thrive assessed: 10/10/23 I am a: Patient What is your living situation today?: I have a steady place to live Within the past 12 months, did the food you bought not last and you didn't have the money to get more?: Never true Within the past 12 months, did you worry whether your food would run out before you got money to buy more?: Never true Do you have trouble paying for medicines?: No Do you have trouble getting transportation to medical appointments?: No Do you have trouble paying your heating and electricity bill?: No Do you have trouble taking care of your child, family member or friend?: No Do you have trouble with day-to-day activities such as bathing, preparing meals, shopping, managing finances, etc.?: No Are you currently unemployed and looking for a job?: No Are you interested in more education?: No Currently or been in a relationship where the following occur: no concerns reported AUDIT C Alcohol Use Questionnaire (AUDIT-C) 1. How often do you have a drink containing alcohol?: Monthly or less 2. How many drinks containing alcohol do you have on a typical day when you are drinking?: 1 or 2 3. How often do you have six or more drinks on one occasion?: Never Total Score: 1 Score Reviewed/Action Taken: No ROSA MARIA-7 AMB Questionnaire ROSA MARIA-7 Date ROSA MARIA - 7 assessed: 10/10/23 Feeling nervous, anxious, or on edge: 3 = Nearly every day Not being able to stop or control worryin = Several days Worrying too much about different things: 1 = Several days Trouble relaxin = Several days Being so restless that it is hard to sit still: 1 = Several days Becoming easily annoyed or irritable: 1 = Several days Feeling afraid as if something awful might happen: 1 = Several days Total ROSA MARIA-7 score (0-4 normal; 5-9 mild; 10-14 moderate; 15-21 severe): 9 Source: Developed by Drs. Sly Montes, Rosibel Craig, Kunal Jewell and colleagues, with an educational edgar from [employer]. ROSA MARIA-7 Assessment Billing ROSA MARIA-7 Assessment Tool: ROSA MARIA-7 Assessment [id number] Review of Systems Const Reports as per HPI Physical exam (Primary Care) Vital Signs: Last Vital Signs Pulse 64 10/10/23 09:36 BP 122/74 10/10/23 09:36 Pulse Ox 98 10/10/23 09:36 Oxygen Delivery Method Room Air 10/10/23 09:36 BMI result Body Mass Index 32.7 Tobacco/Smoking Status: Tobacco use Status Tobacco use date assessed 10/10/23 10/10/23 09:42 Patient Tobacco Use Status Never used Tobacco 10/10/23 09:35 e-Cigarette/Vaping Use Never Used 10/10/23 09:35 PHQ-9: PHQ-9 Score PHQ-9: Total score 4 10/10/23 10:48 Depression Screening Interpretation: Negative Thrive Assessment: Date of Thrive Assessment Date Thrive assessed 10/10/23 10/10/23 10:48 Currently or been in a relationship where the following occur: no concerns reported Const General: cooperative Nutritional Appearance: obese Orientation/consciousness: patient oriented x3 Resp Effort & Inspection: normal respiratory effort Auscultation: clear to auscultation bilaterally Cardio Rate: regular rate Rhythm: regular rhythm Heart sounds: S1 normal heart sound present and S2 normal heart sound present Neuro General: patient oriented x3 Psych Appearance: grossly normal Mental Status: mental status grossly normal Speech and movement: Normal speech and movement present Affect: normal affect Attitude: cooperative Thought process: Normal thought process present Thought content: Normal thought content present Insight: Good insight present (Psych) Judgement: Good judgement present (Psych) Assessment and Plan Assessment & Plan (1) Anxiety and depression: Code(s): F41.9 - Anxiety disorder, unspecified; F32.A - Depression, unspecified Plan: adding trazodone for nighttime use, elisha will speak with pt regarding therapy. Plan The patient agreed to the use of a caregivers non medical for this encounter. Scribed for TRICIA Faria-SHIRA by Tracy Shah caregivers non medical, on 10/10/2023 at 09:50 EST. Medications: New trazodone 50 mg PO BEDTIME PRN 30 tabs 0RF sleep 30 days Coding Level of Care Code Est Pt Level 3 (10879) Diagnoses Anxiety and depression F41.9; F32.A Additional Codes ROSA MARIA-7 Assessment Billing - ROSA MARIA-7 Assessment Tool: ROSA MARIA-7 Assessment 32220 ([id number])
[2023-10-10 09:36] VITALS: BP 122/74; PULSE 64; O2SAT 98; BMI 32.7
== END 2023-10-10 10:39 | disposition home or self-care (01) ==
PROVIDERS: PCP Nurse Practitioner Family; Visit Provider Nurse Practitioner Family
DX: F41.9 Anxiety disorder, unspecified (principal); F32.A Depression, unspecified
CPT/HCPCS: 99213

== ENCOUNTER 2023-10-11 13:16 | Outpatient (REF) | payer OTHER, SELFPAY ==
--- NOTE | ~2023-10-11 | US_ITS ---
History: 57-year-old female with TIRADS 4 nodule in the right mid thyroid Procedure performed: Ultrasound-guided FNA of right thyroid nodule Physician: Alla Butler MD FSIR Anesthesia: 5 mL 1% lidocaine Specimen: Three 25-gauge FNA samples COMPARISON: Ultrasound of the thyroid performed 08/15/2023 Procedure in detail: Informed and written consent was obtained. Ultrasound of the thyroid showed a colloid nodule on the left and the suspicious TI-RADS 4 nodule in the right middle lobe of the thyroid that is predominantly hypoechoic. The overlying skin was prepped and draped. 1% lidocaine was injected subcutaneously under ultrasound guidance and extended to the edge of the nodule. Next, a total of three 25-gauge specimens were obtained from the nodule and placed in CytoLyt as well as the thyrosequence media. A sterile dressing was applied. Summary: Successful right thyroid nodule FNA as described.
[2023-10-11] MEDS: Lidocaine HCl 1 % MPF 5 ML VIAL SUBCUT (14:19)
== END 2023-10-11 13:17 | disposition home or self-care (01) ==
LOC: HO.US 13:16
PROVIDERS: PCP Nurse Practitioner Family; Visit Provider Internal Medicine Endocrinology, Diabetes & Metabolism
DX: E04.1 Nontoxic single thyroid nodule (principal)
CPT/HCPCS: 10005; 88173; 88305

== ENCOUNTER → 2023-10-11 13:30 | Outpatient (BNV) | payer OTHER, SELFPAY | PROVIDERS: PCP Nurse Practitioner Family; Visit Provider Radiology Vascular & Interventional Radiology | DX: E04.1 Nontoxic single thyroid nodule (principal) | CPT/HCPCS: 10005 ==

== ENCOUNTER 2023-11-05 15:14 | Outpatient (AMB) | payer OTHER, SELFPAY ==
--- NOTE | 2023-11-05 15:51 | MHC.OFFWIV ---
Intake Vital Signs 11/05/23 15:53 Height 5 ft 1.5 in Weight 177 lb BMI 32.9 BP 130/70 Blood Pressure Location Lt brachial Position Sitting Pulse 86 Pulse Source Pulse Oximeter Temp 98.0 F Temp Source Oral Pulse Oximetry (%) 98 Intake Visit Reasons: EST/cough and chest congestion ([phone]) Intake Note: Pt is here today for a cough. Pt states she went to clinic last wk for a cough and doesn't seem to get any better. Patient Tobacco Use Status: Never used Tobacco Allergies amoxicillin [From Augmentin] Allergy (Severe, Verified 11/05/23 15:51) Anaphylaxis clavulanic acid [From Augmentin] Allergy (Severe, Verified 11/05/23 15:51) Anaphylaxis Penicillins Allergy (Severe, Verified 11/05/23 15:51) Anaphylaxis HPI EST/cough and chest congestion ([phone]) HPI Details Patient presents for a sick visit. Reporting symptoms of sinus congestion, sore throat and difficulty swallowing. Low-grade fever. No family member is sick. No recent travel. Patient reports symptoms of malaise and fatigue. [facility] Medical History Arthritis Surgical History History of endometrial ablation Hx of tonsillectomy History of carpal tunnel surgery History of cholecystectomy History of right hip replacement Family History Mother Hypertension Maternal Grandmother Colon cancer Social History Housing: House Patient Tobacco Use Status: Never used Tobacco e-Cigarette/Vaping Use: Never Used Second Hand Smoke Exposure: No Current occupational status: employed Cognitive needs: No Hearing needs: No Vision needs: No Physical Exam Vital Signs: Last Vital Signs Temp 98.0 F 11/05/23 15:53 Pulse 86 11/05/23 15:53 BP 130/70 11/05/23 15:53 Pulse Ox 98 11/05/23 15:53 BMI result Body Mass Index 32.9 Const General: cooperative and healthy appearing Nutritional Appearance: well nourished Orientation/consciousness: patient oriented x3 Limitations: no limitations HEENT Head: Yes normal to inspection Eyes General: appearance normal, both eyes and all related structures Neck Neck: Yes normal visual inspection Chest Chest palpation & inspection: normal palpation of entire chest wall Resp Effort & Inspection: normal respiratory effort Neuro General: patient oriented x3 Assessment & Plan Assessment & Plan (1) Upper respiratory tract infection: Code(s): J06.9 - Acute upper respiratory infection, unspecified Plan: Azithromycin, Ventolin called in. Patient was advised to continue taking the medications she is been using at home Coding Level of Care Code Est Pt Level 3 (24742) Diagnoses Upper respiratory tract infection J06.9
[2023-11-05 15:53] VITALS: BP 130/70; PULSE 86; TEMP 36.7; O2SAT 98; BMI 32.9
== END 2023-11-05 16:39 | disposition home or self-care (01) ==
PROVIDERS: PCP Nurse Practitioner Family; Visit Provider Internal Medicine
DX: J06.9 Acute upper respiratory infection, unspecified (principal)
CPT/HCPCS: 99213

== ENCOUNTER 2023-11-14 09:11 | Outpatient (AMB) | payer OTHER, SELFPAY ==
--- NOTE | 2023-11-14 09:13 | A.OFFVIS_ITS ---
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 She is doing well with no concerns. Attempting to eat a healthy diet with calcium and vitamin D and stays active with exercise. Currently sexually active. Denies any irritation. Admits to vaginal dryness and burning area STI testing offered; she declined. Last pap smear; 2020. Last mammogram; 2022. Colonoscopy is UTD. Denies any family history of breast, ovarian or colon cancer. [facility] Medical History Arthritis Surgical History History of endometrial ablation Hx of tonsillectomy History of carpal tunnel surgery History of cholecystectomy History of right hip replacement Family History Mother Hypertension Maternal Grandmother Colon cancer Social History Housing: House Patient Tobacco Use Status: Never used Tobacco e-Cigarette/Vaping Use: Never Used Second Hand Smoke Exposure: No Current occupational status: employed Cognitive needs: No Hearing needs: No Vision needs: No Female Reproductive History Menstrual Menopause type: natural Total pregnancies: 5 Full term: 2 Number of Living Children: 2 Date of last pap smear: 07/06/21 (neg) Date of Mammogram: 07/18/23 (Birad2) Review of Systems Const All systems reviewed & are unremarkable except as noted in HPI and below Reports as per HPI Eyes Reports no additional complaints ENT Reports no additional complaints Card Reports no additional complaints Resp Reports no additional complaints GI Reports as per HPI and Reports no additional complaints Reports as per HPI Musc Reports no additional complaints Skin/Breast Reports as per HPI Neuro Reports no additional complaints Psych Reports no additional complaints Endo Reports no additional complaints Amaury/Lymph Reports no additional complaints Aller/Immun Reports no additional complaints Physical Exam Vital Signs: Last Vital Signs BP 110/72 11/14/23 09:14 BMI result Body Mass Index 32.3 Const General: cooperative, healthy appearing, no acute distress, well developed and alert Orientation/consciousness: patient oriented x3 HEENT Head: Yes normal to inspection Eyes General: appearance normal, both eyes and all related structures Neck Neck: Yes normal visual inspection Thyroid: Thyroid normal Chest Chest palpation & inspection: normal inspection of the chest and other (no puckering, dimpling, peau de orange, retraction, discharge, masses) Breast/axilla inspection: normal inspection of the breasts Breast/axilla palpation: normal palpation of the breasts Resp Effort & Inspection: normal respiratory effort GI Inspection: Yes normal to inspection Palpation (GI): Soft to palpation Rectal Exam - Female: deferred General: Yes bladder normal to palpation External Female Exam: normal external appearance and normal appearance of the urethra Speculum Exam - Vagina: normal appearance of the vagina, normal palpation, normal vaginal discharge and vagina atrophic (Moderate) Speculum Exam - Cervix: normal appearance of the cervix and normal palpation Bimanual exam- vagina & uterus: normal bimanual exam, normal palpation, uterine size normal, bladder normal to palpation, normal palpation and non-tender Bimanual Exam- Adnexa, other: no masses Skin General skin exam: no rashes or lesions noted Rashes: no rashes Neuro General: patient oriented x3 Cognition (Neuro): normal cognition Extrem General: Yes normal to inspection Psych Attitude: cooperative Thought process: Normal thought process present Assessment & Plan Assessment & Plan (1) Encounter for well woman exam with routine gynecological exam: Code(s): Z01.419 - Encounter for gynecological examination (general) (routine) without abnormal findings Plan Discussed: Current recommendations for pap smears per ASCCP guidelines. Breast awareness, periodic self breast exams and yearly mammogram. Maintain a healthy lifestyle, well balanced diet including Calcium 1,200 mg and Vitamin D 600 IU daily, and routine exercise. Discussed: Vaginal dryness and use of products available online or in store for purchase without a prescription. Moisturizer: Replens-inserted vaginally, used twice a week at bedtime, it can take up to 12 weeks to see the results). Lubricants: may be used additionally if needed such as (Astroglide, Replens, K-Y Jelly). Consider vaginal estrogen if no contraindications and is needed. Contact the office with any postmenopausal bleeding. Patient verbalizes understanding and agrees to the plan of care. She was given opportunity to ask questions and all questions were answered to the best of my ability. RTO in 1 year for annual automotive product engineer exam. This note is constructed using voice recognition software. While every effort has been made to ensure accuracy, dielectric embossing machine operator errors may have been included. Coding Level of Care Code Est Pt Prev Care 40-64y(45873) Diagnoses Encounter for well woman exam with routine gynecological exam Z01.419
[2023-11-14 09:14] VITALS: BP 110/72; BMI 32.3
== END 2023-11-14 10:19 | disposition home or self-care (01) ==
LOC: HO.HWS 09:11
PROVIDERS: PCP Nurse Practitioner Family; Visit Provider Advanced Practice Midwife
DX: Z01.419 Encounter for gynecological examination (general) (routine) without abnormal findings (principal)
CPT/HCPCS: 99396

== ENCOUNTER → 2023-11-14 09:11 | Outpatient (BNVA) | payer OTHER, SELFPAY | PROVIDERS: PCP Nurse Practitioner Family; Visit Provider Advanced Practice Midwife ==

== ENCOUNTER 2023-12-19 08:03 | Outpatient (AMB) | payer OTHER, SELFPAY ==
[2023-12-19 08:12] VITALS: BP 116/72; PULSE 72; TEMP 36.9; O2SAT 95; BMI 32.2
--- NOTE | 2023-12-19 08:12 | MHC.OFFWIV ---
Intake Vital Signs 12/19/23 08:12 Height 5 ft 1.5 in Weight 173 lb BMI 32.2 BP 116/72 Blood Pressure Location Rt brachial Position Sitting Pulse 72 Pulse Source Pulse Oximeter Temp 98.5 F Temp Source Oral Pulse Oximetry (%) 95 Oxygen Delivery Method Room Air Intake Visit Reasons: EP cough since sep Intake Note: Pt presents to the office today for c/o cough since September. She states it got somewhat better but now its abck to what it was in September. She states it never completely went away. Patient Tobacco Use Status: Never used Tobacco Allergies amoxicillin [From Augmentin] Allergy (Severe, Verified 12/19/23 08:15) Anaphylaxis clavulanic acid [From Augmentin] Allergy (Severe, Verified 12/19/23 08:15) Anaphylaxis Penicillins Allergy (Severe, Verified 12/19/23 08:15) Anaphylaxis HPI HPI Comments History of Present Illness Details september started with post nasal drip She was given antibiotics, steroid and inhaler She felt some imrovment but last week it worsened again +some phlegm production in am Inhaler use as needed; (using in ams. She was not on inhaler on prior to September) She sees Tanvir for PCP No fevers or chills She said minimal post nasal drip No SOB or chest tightness No pain She has intermittent coughing fits Vaccinated as child [facility] Medical History Arthritis Surgical History History of endometrial ablation Hx of tonsillectomy History of carpal tunnel surgery History of cholecystectomy History of right hip replacement Family History Mother Hypertension Maternal Grandmother Colon cancer Social History Housing: House Patient Tobacco Use Status: Never used Tobacco e-Cigarette/Vaping Use: Never Used Second Hand Smoke Exposure: No Current occupational status: employed Cognitive needs: No Hearing needs: No Vision needs: No Review of Systems Const Denies chills, Reports fatigue (cough keeping her up at night) and Denies fever(s) ENT Denies dizziness, Denies facial pain, Reports nasal congestion, Denies sore throat and Denies throat swelling Card Denies chest pain and Denies dyspnea Resp Reports chest congestion, Reports cough and Denies dyspnea GI Denies abdominal pain Musc Denies myalgias Neuro Denies dizziness Endo Reports fatigue (cough keeping her up at night) Aller/Immun Denies throat swelling Physical Exam Vital Signs: Last Vital Signs Temp 98.5 F 12/19/23 08:12 Pulse 72 12/19/23 08:12 BP 116/72 12/19/23 08:12 Pulse Ox 95 12/19/23 08:12 Oxygen Delivery Method Room Air 12/19/23 08:12 BMI result Body Mass Index 32.2 General: Non-toxic, NAD. Speaking full sentences. Skin: Warm dry throughout Eye: EOMI HENT: Airway patent. Uvula midline. No pharyngeal erythema or edema. No SUPERVISOR PAINT ROLLER COVERS. Bilateral canals clear. TM non-erythematous, non-bulging. No TM perforation or hemotympanum noted. Respiratory: CTA bilaterally. No wheezes, rales or rhonchi Cardiac: RRR. No murmur MSK: Full ROM extremities. Neurology: A. No aphasia or facial droop. Gait without abnormality Psych: Good mood and affect Assessment & Plan Assessment & Plan (1) Persistent cough: Code(s): R05.3 - Chronic cough Plan: Patient seen and evaluated. Lungs CTA I viewed chest xray and it appeared negative Discussed results with pt will call her only if abnormal final read Cough medicine with codeine; take at night; no alcohol or driving Patient gave verbal understanding and had no additional questions or concerns at time of discharge All questions answered Orders: Orders XR chest 2V Today R05.3 - Chronic cough Medications: New codeine-guaifenesin 10-100 mg/5 mL 5 mL PO Q6-8H PRN 118 mL 0RF cough Coding Level of Care Code Est Pt Level 3 (61835) Diagnoses Persistent cough R05.3
== END 2023-12-19 09:06 | disposition home or self-care (01) ==
PROVIDERS: PCP Nurse Practitioner Family; Visit Provider Physician Assistant
DX: R05.3 Chronic cough (principal)
CPT/HCPCS: 99213

== ENCOUNTER 2023-12-19 08:32 | Outpatient (REF) | payer OTHER, SELFPAY ==
--- NOTE | ~2023-12-19 | XR_ITS ---
EXAMINATION: XR CHEST CLINICAL INFORMATION: Chronic cough COMPARISON: Chest radiograph from 06/13/2023 TECHNIQUE: 2 views of the chest were obtained. FINDINGS: No focal consolidation. No pneumothorax. Trachea is midline. Cardiac mediastinal silhouette is stable. Aorta demonstrates atherosclerotic calcifications. Slight dextrocurvature of the midthoracic spine with multilevel degenerative changes. Soft tissues are unremarkable. XR/XR chest 2V IMPRESSION: No acute cardiopulmonary process.
== END 2023-12-19 08:33 | disposition home or self-care (01) ==
LOC: HO.HMGCX 08:32
PROVIDERS: PCP Nurse Practitioner Family; Visit Provider Physician Assistant
DX: R05.3 Chronic cough (principal)
CPT/HCPCS: 71046

== ENCOUNTER 2024-07-16 07:24 | Outpatient (AMB) | payer OTHER, SELFPAY ==
[2024-07-16 07:37] VITALS: BP 114/70; PULSE 69; O2SAT 97; BMI 34.4
--- NOTE | 2024-07-16 07:37 | A.OFFPC_ITS ---
Vital Signs 07/16/24 07:37 Height 5 ft 1.5 in Weight 185 lb BMI 34.4 BP 114/70 Blood Pressure Location Rt brachial Position Sitting Pulse 69 Pulse Source Pulse Oximeter Pulse Oximetry (%) 97 Oxygen Delivery Method Room Air Intake Visit Reasons: Annual PE Intake Note: Pt is here today for her PE Allergies amoxicillin [From Augmentin] Allergy (Severe, Verified 07/16/24 07:52) Anaphylaxis clavulanic acid [From Augmentin] Allergy (Severe, Verified 07/16/24 07:52) Anaphylaxis Penicillins Allergy (Severe, Verified 07/16/24 07:52) Anaphylaxis methocarbamol Adverse Reaction (Verified 07/16/24 07:52) hives Medication List - Last Reconciled 07/16/24 by IMAN Salmon albuterol sulfate 90 mcg/actuation 1 inh inhalation QID PRN loratadine (Claritin) 10 mg PO DAILY mometasone (Asmanex Twisthaler) 1 inh inhalation DAILY multivitamin 1 tab PO DAILY turmeric mg PO BEDTIME Tobacco use date assessed: 07/16/24 Dental Screening Dental Screen Date: 07/16/24 Did you have a dental visit in the last 12 months?: Yes Did you have a dental problem in the last 6 months where you did not have access to dental care?: No Was dental information given to patient?: Patient has dentist HPI Annual PE HPI Details Pt is here for a PE. Will order labs. Colon screen is up to date. Mammo is scheduled. 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 Pt recently underwent a left TKA. She is currently going to PT. [facility] Medical History Arthritis Surgical History History of endometrial ablation Hx of tonsillectomy History of carpal tunnel surgery History of cholecystectomy History of right hip replacement Family History Mother Hypertension Maternal Grandmother Colon cancer Social History Housing: House Patient Tobacco Use Status: Never used Tobacco e-Cigarette/Vaping Use: Never Used Second Hand Smoke Exposure: No Current occupational status: employed Cognitive needs: No Hearing needs: No Vision needs: No Questionnaire PHQ-9 Over the last 2 weeks, how often have you been bothered by any of the following problems? 1. Little interest or pleasure in doing things: not at all 2. Feeling down, depressed, or hopeless: not at all 3. Trouble falling or staying asleep, or sleeping too much: more than half the days 4. Feeling tired or having little energy: more than half the days 5. Poor appetite or overeating: more than half the days 6. Feeling bad about yourself - or that you are a failure or have let yourself or your family down: not at all 7. Trouble concentrating on things, such as reading the newspaper or watching television: not at all 8. Moving or speaking so slowly that other people could have noticed. Or the opposite - being so fidgety or restless that you have been moving around a lot more than usual: not at all 9. Thoughts that you would be better off or of hurting yourself in some way: not at all Total score: 6 Depression Screening Interpretation: Negative Depression Screening Done: Yes 49216 - PHQ-9 Billing: Yes Source: Developed by Drs. Sly Montes, Rosibel Craig, Kunal Jewell and colleagues, with an educational edgar from [employer]. Thrive Questionnaire Date Thrive assessed: 07/16/24 I am a: Patient What is your living situation today?: I have a steady place to live Within the past 12 months, did the food you bought not last and you didn't have the money to get more?: Sometimes True Within the past 12 months, did you worry whether your food would run out before you got money to buy more?: Never true Do you have trouble paying for medicines?: No Do you have trouble getting transportation to medical appointments?: No Do you have trouble paying your heating and electricity bill?: No Do you have trouble taking care of your child, family member or friend?: No Do you have trouble with day-to-day activities such as bathing, preparing meals, shopping, managing finances, etc.?: No Are you currently unemployed and looking for a job?: No Are you interested in more education?: No Please select the resources that you would like help with: None Currently or been in a relationship where the following occur: No concerns reported THRIVE Score: 1 AUDIT C Alcohol Use Questionnaire (AUDIT-C) 1. How often do you have a drink containing alcohol?: Monthly or less 2. How many drinks containing alcohol do you have on a typical day when you are drinking?: 1 or 2 3. How often do you have six or more drinks on one occasion?: Never Total Score: 1 ROSA MARIA-7 AMB Questionnaire ROSA MARIA-7 Date ROSA MARIA - 7 assessed: 07/16/24 Feeling nervous, anxious, or on edge: 1 = Several days Not being able to stop or control worryin = Several days Worrying too much about different things: 1 = Several days Trouble relaxin = Nearly every day Being so restless that it is hard to sit still: 1 = Several days Becoming easily annoyed or irritable: 3 = Nearly every day Feeling afraid as if something awful might happen: 0 = Not at all Total ROSA MARIA-7 score (0-4 normal; 5-9 mild; 10-14 moderate; 15-21 severe): 10 Source: Developed by Drs. Sly Montes, Rosibel Craig, Kunal Jewell and colleagues, with an educational edgar from [employer]. ROSA MARIA-7 Assessment Billing ROSA MARIA-7 Assessment Tool: ROSA MARIA-7 Assessment 04392 Review of Systems Const Denies chills and Denies fever(s) Eyes Denies blurry vision ENT Denies vertigo, Denies dizziness and Denies sore throat Card Denies chest pain at rest, Denies chest pain with activity, Denies diaphoresis, Denies dyspnea and Denies dyspnea on exertion Resp Denies cough, Denies dyspnea, Denies dyspnea on exertion and Denies wheezing GI Denies abdominal pain, Denies melena, Denies hematochezia, Denies constipation, Denies diarrhea and Denies loose stools Denies hematuria Musc Denies numbness and Denies tingling Skin/Breast Denies lesions Neuro Denies vertigo, Denies dizziness, Denies numbness and Denies tingling Psych Denies anxiety, Denies depression, Denies homicidal ideation, Denies suicidal ideation and Denies other (substance abuse) Aller/Immun Denies wheezing Physical exam (Primary Care) Vital Signs: Last Vital Signs Pulse 69 10/23/24 07:37 BP 114/70 07/16/24 07:37 Pulse Ox 97 07/16/24 07:37 Oxygen Delivery Method Room Air 07/16/24 07:37 BMI result Body Mass Index 34.4 Tobacco/Smoking Status: Tobacco use Status Tobacco use date assessed 07/16/24 07/16/24 07:40 Patient Tobacco Use Status Never used Tobacco 07/16/24 07:40 e-Cigarette/Vaping Use Never Used 07/16/24 07:40 PHQ-9: PHQ-9 Score PHQ-9: Total score 6 07/16/24 07:54 Depression Screening Interpretation: Negative Thrive Assessment: Date of Thrive Assessment Date Thrive assessed 07/16/24 07/16/24 07:40 Currently or been in a relationship where the following occur: No concerns reported Const General: cooperative Nutritional Appearance: well nourished Orientation/consciousness: patient oriented x3 HENMT Head: Yes normal to inspection, Yes normocephalic and Yes atraumatic Ears: TM's normal bilaterally Eyes General: appearance normal, both eyes and all related structures Alignment and Position: alignment normal and position normal Neck Neck: Yes normal visual inspection, Yes no lymphadenopathy and Yes supple Resp Effort & Inspection: normal respiratory effort Auscultation: clear to auscultation bilaterally Cardio Rate: regular rate Rhythm: regular rhythm Heart sounds: S1 normal heart sound present, S2 normal heart sound present and Murmur heart sound present systolic (faint) GI Palpation (GI): Soft to palpation and nontender Auscultation: normal bowel sounds Skin Other: freckles upper chest, BUE. Rashes: no rashes Neuro General: patient oriented x3, moves all extremities, no focal motor deficits and deep tendon reflexes 2+ bilaterally Romberg Test: Negative Extrem Other: dorsalis pedis pulses present Right lower extremity: edema (trace) Left lower extremity: edema (trace) Psych Appearance: grossly normal Mental Status: mental status grossly normal Speech and movement: Normal speech and movement present Affect: normal affect Attitude: cooperative Thought process: Normal thought process present Thought content: Normal thought content present Insight: Good insight present (Psych) Judgement: Good judgement present (Psych) Coding Level of Care Code Est Pt Prev Care 40-64y(09285) Diagnoses Physical exam Z00.00 B12 deficiency E53.8 Skin lesions L98.9 Additional Codes ROSA MARIA-7 Assessment Billing - ROSA MARIA-7 Assessment Tool: ROSA MARIA-7 Assessment 74731 ([id number]) Assessment & Plan Assessment & Plan (1) Physical exam: Code(s): Z00.00 - Encounter for general adult medical examination without abnormal findings Category: Medical Plan: Labs ordered (2) B12 deficiency: Code(s): E53.8 - Deficiency of other specified B group vitamins Category: Medical Plan: b12 ordered (3) Skin lesions: Code(s): L98.9 - Disorder of the skin and subcutaneous tissue, unspecified Category: Medical Plan: Referred to derm Plan The patient agreed to the use of a medical physicist for this encounter. Scribed for IMAN Faria by Tracy Shah medical physicist, on 07/16/2024 at 08:10 EST. Orders: Orders Comprehensive [place]. Panel Fast Today E53.8 - Deficiency of other specified B group vitamins, Z00.00 - Encounter for general adult medical examination without abnormal findings Lipid Panel Today E53.8 - Deficiency of other specified B group vitamins, Z00.00 - Encounter for general adult medical examination without abnormal findings Vitamin B12 and Folate Today E53.8 - Deficiency of other specified B group vitamins, Z00.00 - Encounter for general adult medical examination without abnormal findings Magnesium Today E53.8 - Deficiency of other specified B group vitamins, Z00.00 - Encounter for general adult medical examination without abnormal findings Complete Blood Count Auto Diff Today E53.8 - Deficiency of other specified B group vitamins, Z00.00 - Encounter for general adult medical examination without abnormal findings TSH reflex Free T4 Today E53.8 - Deficiency of other specified B group vitamins, Z00.00 - Encounter for general adult medical examination without abnormal findings UA CC w/rflx Micro + Cult Today E53.8 - Deficiency of other specified B group vitamins, Z00.00 - Encounter for general adult medical examination without abnormal findings Referrals Dermatology Referral L98.9 - Disorder of the skin and subcutaneous tissue, unspecified
== END 2024-07-16 08:22 | disposition home or self-care (01) ==
PROVIDERS: PCP Nurse Practitioner Family; Visit Provider Nurse Practitioner Family
DX: Z00.00 Encounter for general adult medical examination without abnormal findings (principal); E53.8 Deficiency of other specified B group vitamins; L98.9 Disorder of the skin and subcutaneous tissue, unspecified

== ENCOUNTER → 2024-07-16 07:24 | Outpatient (BNVA) | payer OTHER, SELFPAY | PROVIDERS: PCP Nurse Practitioner Family; Visit Provider Nurse Practitioner Family | DX: Z00.01 Encounter for general adult medical examination with abnormal findings (principal); E53.8 Deficiency of other specified B group vitamins; L98.9 Disorder of the skin and subcutaneous tissue, unspecified | CPT/HCPCS: 96127 ==

== ENCOUNTER 2024-07-16 08:24 | Outpatient (REF) | payer OTHER, SELFPAY ==
[2024-07-16 10:08] LABS: MANUAL DIFF FLAG NO
[2024-07-16 10:10] LABS: Appearance Urine Clear; Color Urine Yellow; Glucose Urine UA Negative (Negative); Leukocyte Esterase Urine Negative (Negative); Nitrite Urine Negative (Negative); Urine Blood Negative (Negative); Urine Ketones Negative (Negative); Urine Protein Negative (Neg-Trace)
[2024-07-16 10:15] LABS: Basophils Percent Auto 0.7 % (0-2); Eosinophils Absolute Auto 0.4 X10*3/uL (0.0-0.4); Eosinophils Percent Auto 7.2 % (0-4); Hematocrit 38.1 % (37.0-47.0); Hemoglobin 12.3 g/dl (12.0-16.0); Imm Gran Abs Auto 0.01 X10*3/uL (0.00-0.03); Imm Gran Pct Auto 0.2 % (0.0-0.4); Lymphocytes Absolute Auto 2.2 X10*3/uL (1.2-4.9); Lymphocytes Percent Auto 37.4 % (20-40); Mean Corpuscular HGB Conc 32.3 g/dl (31.0-35.0); Mean Corpuscular Hemoglobin 29.6 pg (27.0-33.0); Mean Corpuscular Volume 91.8 fL (80.0-98.0); Mean Platelet Volume 9.7 fL (9.4-12.3); Monocytes Absolute Auto 0.5 X10*3/uL (0.1-1.2); Monocytes Percent Auto 9.3 % (2-11); Neutrophils Absolute Auto 2.6 x10*3/uL (2.0-8.3); Neutrophils Percent Auto 45.2 % (45-73); Platelet Count 298 X10*3/uL (160-400); Red Blood Count 4.15 X10*6/uL (4.20-5.50); Red Cell Distribution Width 13.8 % (11.0-16.0); White Blood Count 5.8 X10*3/uL (4.8-10.8)
[2024-07-16 12:01] LABS: Alanine Aminotransferase 27 U/L (0-31); Albumin Level 4.2 g/dL (3.5-5.0); Alkaline Phosphatase 68 U/L (39-117); Anion Gap 13 (12-20); Aspartate Amino Transferase 27 U/L (5-31); Bilirubin Total 0.5 mg/dL (0.0-1.0); Blood Urea Nitrogen 16 mg/dL (9-16); Calcium 9.7 mg/dL (8.4-10.2); Carbon Dioxide 26 mmol/L (22-29); Chloride 110 mmol/L (96-108); Cholesterol 192 mg/dL (<200); Estimated Glomerular Filt Rate > 60; Glucose Fasting 89 mg/dL (60-99); HDL Cholesterol 64 mg/dL (>40); LDL Cholesterol Calculated 118 mg/dL (<100); Magnesium 2.2 mg/dL (1.6-2.6); Potassium 4.7 mmol/L (3.3-5.1); Sodium 144 mmol/L (135-145); Total Protein 6.9 g/dL (6.5-8.0); Triglycerides 54 mg/dL (<150)
[2024-07-16 12:11] LABS: Folate 15.9 ng/mL (> or = 4.0); Vitamin B12 635 pg/mL (200-900)
[2024-07-16 12:20] LABS: TSH reflex Free T4 1.48 uIU/mL (0.32-4.0)
== END 2024-07-16 08:25 | disposition home or self-care (01) ==
LOC: HO.HMGCLDS 08:24
PROVIDERS: PCP Nurse Practitioner Family; Visit Provider Nurse Practitioner Family
DX: Z00.00 Encounter for general adult medical examination without abnormal findings (principal); Z13.6 Encounter for screening for cardiovascular disorders; E53.8 Deficiency of other specified B group vitamins
CPT/HCPCS: 36415; 80053; 80061; 81003; 82607; 82746; 83735; 84443; 85025

== ENCOUNTER 2024-07-23 07:54 | Outpatient (REF) | payer OTHER, SELFPAY | END 2024-07-23 07:55 | disposition home or self-care (01) | LOC: HO.MAMMO 07:54 | PROVIDERS: PCP Nurse Practitioner Family; Visit Provider Nurse Practitioner Family | DX: Z13.89 Encounter for screening for other disorder (principal) ==

== ENCOUNTER 2024-07-23 12:24 | Outpatient (AMB) | payer OTHER, SELFPAY ==
[2024-07-23 12:38] VITALS: BP 112/68; PULSE 68; O2SAT 98; BMI 34.2
--- NOTE | 2024-07-23 12:38 | MHC.PC.OV ---
Vital Signs 07/23/24 12:38 Height 5 ft 1.5 in Weight 184 lb 2 oz BMI 34.2 BP 112/68 Blood Pressure Location Rt brachial Position Sitting Pulse 68 Pulse Source Pulse Oximeter Pulse Oximetry (%) 98 Oxygen Delivery Method Room Air Intake Visit Reasons: Breast pain, ok per Dr Kim Allergies amoxicillin [From Augmentin] Allergy (Severe, Verified 07/23/24 12:40) Anaphylaxis clavulanic acid [From Augmentin] Allergy (Severe, Verified 07/23/24 12:40) Anaphylaxis Penicillins Allergy (Severe, Verified 07/23/24 12:40) Anaphylaxis methocarbamol Adverse Reaction (Verified 07/23/24 12:40) hives Medication List - Last Reconciled 07/23/24 by Lori Green MD albuterol sulfate 90 mcg/actuation 1 inh inhalation QID PRN loratadine (Claritin) 10 mg PO DAILY mometasone (Asmanex Twisthaler) 1 inh inhalation DAILY multivitamin 1 tab PO DAILY turmeric mg PO BEDTIME Tobacco use date assessed: 07/23/24 Dental Screening Dental Screen Date: 07/23/24 Did you have a dental visit in the last 12 months?: Yes Did you have a dental problem in the last 6 months where you did not have access to dental care?: No Was dental information given to patient?: Patient has dentist HPI Breast pain, ok per Dr Kim HPI Details Patient is a 58-year-old female who has been having pain off and on left breast Today she went for mammogram and mentioned it to them Patient was called in for examination before we do further imaging On examination she has a lump around 9 o'clock position left breast size of reyes Feels round and smooth tender to palpation deep in the breast There is no nipple discharge Diagnostic mammogram and ultrasound ordered Further management after the imaging reports [facility] Medical History Arthritis Surgical History History of endometrial ablation Hx of tonsillectomy History of carpal tunnel surgery History of cholecystectomy History of right hip replacement Family History Mother Hypertension Maternal Grandmother Colon cancer Social History Housing: House Patient Tobacco Use Status: Never used Tobacco e-Cigarette/Vaping Use: Never Used Second Hand Smoke Exposure: No service: No Current occupational status: employed Cognitive needs: No Hearing needs: No Vision needs: No Questionnaire Thrive Questionnaire Date Thrive assessed: 07/23/24 I am a: Patient What is your living situation today?: I have a steady place to live Within the past 12 months, did the food you bought not last and you didn't have the money to get more?: Sometimes True Within the past 12 months, did you worry whether your food would run out before you got money to buy more?: Never true Do you have trouble paying for medicines?: No Do you have trouble getting transportation to medical appointments?: No Do you have trouble paying your heating and electricity bill?: No Do you have trouble taking care of your child, family member or friend?: No Do you have trouble with day-to-day activities such as bathing, preparing meals, shopping, managing finances, etc.?: No Are you currently unemployed and looking for a job?: No Are you interested in more education?: No Please select the resources that you would like help with: None Currently or been in a relationship where the following occur: No concerns reported THRIVE Score: 1 AUDIT C Alcohol Use Questionnaire (AUDIT-C) 1. How often do you have a drink containing alcohol?: Monthly or less 2. How many drinks containing alcohol do you have on a typical day when you are drinking?: 1 or 2 3. How often do you have six or more drinks on one occasion?: Never Total Score: 1 Score Reviewed/Action Taken: Yes ROSA MARIA-7 AMB Questionnaire ROSA MARIA-7 Date ROSA MARIA - 7 assessed: 07/16/24 Source: Developed by Drs. Sly Montes, Rosibel Craig, Kunal Jewell and colleagues, with an educational edgar from [employer]. Review of Systems Const All systems reviewed & are unremarkable except as noted in HPI and below Physical exam (Primary Care) Vital Signs: Last Vital Signs Pulse 68 07/23/24 12:38 BP 112/68 07/23/24 12:38 Pulse Ox 98 07/23/24 12:38 Oxygen Delivery Method Room Air 07/23/24 12:38 BMI result Body Mass Index 34.2 Tobacco/Smoking Status: Tobacco use Status Tobacco use date assessed 07/23/24 07/23/24 12:42 Patient Tobacco Use Status Never used Tobacco 07/23/24 12:42 e-Cigarette/Vaping Use Never Used 07/23/24 12:42 Thrive Assessment: Date of Thrive Assessment Date Thrive assessed 07/23/24 07/23/24 12:42 Currently or been in a relationship where the following occur: No concerns reported Const General: no acute distress Orientation/consciousness: patient oriented x3 Eyes General: appearance normal, both eyes and all related structures Chest Chest/axillae images: 1. Lump felt, smooth, size of reyes, tender to palpation, deep in the breast, 9 o'clock position without any axillary lymphadenopathy or nipple discharge Resp Effort & Inspection: normal respiratory effort and able to speak in complete sentences Neuro General: patient oriented x3 Psych Mental Status: mental status grossly normal Coding Level of Care Code Est Pt Level 3 (50105) Diagnoses Breast lump on left side at 9 o'clock position N63.25 Assessment & Plan Assessment & Plan (1) Breast lump on left side at 9 o'clock position: Code(s): N63.25 - Unspecified lump in the left breast, overlapping quadrants Category: Medical Plan Patient is a 58-year-old female who has been having pain off and on left breast Today she went for mammogram and mentioned it to them Patient was called in for examination before we do further imaging On examination she has a lump around 9 o'clock position left breast size of reyes Feels round and smooth tender to palpation deep in the breast There is no nipple discharge No Family history of breast cancer Diagnostic mammogram and ultrasound ordered Further management after the imaging reports Orders: Orders MM tomosynthesis diagnostic LT Today N63.25 - Unspecified lump in the left breast, overlapping quadrants US breast LT complete Today N63.25 - Unspecified lump in the left breast, overlapping quadrants
== END 2024-07-23 13:48 | disposition home or self-care (01) ==
LOC: HO.HMCC 12:24
PROVIDERS: PCP Nurse Practitioner Family; Visit Provider Internal Medicine
DX: N63.25 Unspecified lump in the left breast, overlapping quadrants (principal)

== ENCOUNTER 2024-08-01 10:01 | Outpatient (REF) | payer OTHER, SELFPAY ==
--- NOTE | ~2024-08-01 | MM_ITS ---
EXAMINATION: MM DIAGNOSTIC DIGITAL BREAST TOMOSYNTHESIS, BILATERAL CLINICAL INFORMATION: Palpable lump at 9:00 felt by patient's physician. Patient has lateral left breast pain and on and off palpable lumps. Patient does not feel palpable lumps today. COMPARISON: Mammography: Comparison is made with relevant prior exams. TECHNIQUE: Digital breast mammography with tomosynthesis is performed in both the craniocaudal and mediolateral oblique views along with computer-aided detection (CAD). Left Limited breast ultrasound. FINDINGS: There are scattered areas of fibroglandular density (ACR BI-RADS breast composition Category b). There are no significant masses, abnormal calcifications, or other abnormalities. Targeted color Doppler ultrasound in the left breast scanning from 1-5 o'clock demonstrates normal follicular breast tissue. There is no sonographic abnormality. Targeted color Doppler ultrasound scanning from 8-10 o'clock demonstrates normal fibroglandular breast tissue. Results are provided to the patient at time of visit by the technologist. MM/MM tomosynthesis diagnostic BI IMPRESSION: No mammographic or sonographic abnormality to account for the patient's left breast pain and palpable lumps felt by the patient and the patient's physician. Recommend clinical evaluation and follow-up. Recommend screening mammography in one year. ASSESSMENT: BI-RADS BI-RADS 1 - Negative RECOMMENDATION: 1 year F/U This patient's information was entered into a reminder system with a target due date for their next mammogram. Electronically signed by: Maddie Schneider DO 08/01/2024 11:07 [place] [facility] [place]
== END 2024-08-01 10:02 | disposition home or self-care (01) ==
LOC: HO.MAMMO 10:01
PROVIDERS: PCP Nurse Practitioner Family; Visit Provider Internal Medicine
DX: N63.25 Unspecified lump in the left breast, overlapping quadrants (principal)
CPT/HCPCS: 76642; 77062; 77066

== ENCOUNTER → 2024-08-01 10:15 | Outpatient (BNV) | payer OTHER, SELFPAY | PROVIDERS: PCP Nurse Practitioner Family; Visit Provider Internal Medicine | DX: N63.15 Unspecified lump in the right breast, overlapping quadrants (principal); N64.4 Mastodynia | CPT/HCPCS: 76642; 77062; 77066 ==

== ENCOUNTER 2024-11-19 08:59 | Outpatient (AMB) | payer OTHER, SELFPAY ==
--- NOTE | 2024-11-19 09:00 | MHC.OFFVIS ---
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 She is doing well with no zone maintenance technician concerns. Left-sided breast pain in the 2-3 o'clock area position. She reports there was some discrepancy with her previous scan locating the pain at a different position, she has only had left-sided pain in the position she reports today. Currently sexually active. Admits vaginal dryness, uses lubricant. Attempting to eat a healthy diet with calcium and vitamin D and stays active with exercise. Last pap smear; 2020. Last mammogram; 2023. Colonoscopy is UTD. Denies any family history of breast or ovarian. FH of colon cancer. [facility] Medical History (Updated 11/19/24 @ 13:56 by Ashleigh Horan CNM) Breast pain Arthritis Surgical History History of knee replacement procedure of left knee History of endometrial ablation Hx of tonsillectomy History of carpal tunnel surgery History of cholecystectomy History of right hip replacement Family History Mother Hypertension Maternal Grandmother Colon cancer Social History Housing: House Patient Tobacco Use Status: Never used Tobacco e-Cigarette/Vaping Use: Never Used Second Hand Smoke Exposure: No service: No Current occupational status: employed Cognitive needs: No Hearing needs: No Vision needs: No Female Reproductive History Menstrual Total pregnancies: 5 Full term: 2 Number of Living Children: 2 Date of last pap smear: 06/23/21 (neg) Date of Mammogram: 08/01/24 (Birad 1) Review of Systems Const All systems reviewed & are unremarkable except as noted in HPI and below Reports as per HPI Eyes Reports no additional complaints ENT Reports no additional complaints Card Reports no additional complaints Resp Reports no additional complaints GI Reports as per HPI and Reports no additional complaints Reports as per HPI Musc Reports no additional complaints Skin/Breast Reports as per HPI Neuro Reports no additional complaints Psych Reports no additional complaints Endo Reports no additional complaints Amaury/Lymph Reports no additional complaints Aller/Immun Reports no additional complaints Physical Exam Vital Signs: Last Vital Signs BP 120/74 11/19/24 09:02 BMI result Body Mass Index 34.4 Const General: cooperative, healthy appearing, no acute distress, well developed and alert Orientation/consciousness: patient oriented x3 HEENT Head: Yes normal to inspection Eyes General: appearance normal, both eyes and all related structures Neck Neck: Yes normal visual inspection Thyroid: Thyroid normal Chest Other: Breast tenderness noted on her left breast in the area of 2 to 3 o'clock position. Chest palpation & inspection: normal inspection of the chest and other (no puckering, dimpling, peau de orange, retraction, discharge, masses) Breast/axilla inspection: normal inspection of the breasts Breast/axilla palpation: normal palpation of the breasts Resp Effort & Inspection: normal respiratory effort GI Inspection: Yes normal to inspection Palpation (GI): Soft to palpation Rectal Exam - Female: deferred General: Yes bladder normal to palpation External Female Exam: normal external appearance and normal appearance of the urethra Speculum Exam - Vagina: normal appearance of the vagina, normal palpation, normal vaginal discharge and vagina atrophic Speculum Exam - Cervix: normal appearance of the cervix and normal palpation Bimanual exam- vagina & uterus: normal bimanual exam, normal palpation, uterine size normal, bladder normal to palpation, normal palpation and non-tender Bimanual Exam- Adnexa, other: no masses Skin General skin exam: no rashes or lesions noted Rashes: no rashes Neuro General: patient oriented x3 Cognition (Neuro): normal cognition Extrem General: Yes normal to inspection Psych Attitude: cooperative Thought process: Normal thought process present Results Reviewed Results Reviewed: [facility] [address] [place] [address] Ultrasound Report Signed Patient: Kindra Mak MR#: [id number] : 1965 Acct:[id number] Age/Sex: 58 / F ADM Date: 08/01/24 Loc: HO.MAMMO Attending Dr: Lori Green MD Ordering Physician: Lori Green MD Date of Service: 08/01/24 Procedure(s): US breast LT limited mamm only Accession Number(s): [id number] cc: Tanvir Garsia [employer]-BC; Lori Green MD~ EXAMINATION: MM DIAGNOSTIC DIGITAL BREAST TOMOSYNTHESIS, BILATERAL CLINICAL INFORMATION: Palpable lump at 9:00 felt by patient's physician. Patient has lateral left breast pain and on and off palpable lumps. Patient does not feel palpable lumps today. COMPARISON: Mammography: Comparison is made with relevant prior exams. TECHNIQUE: Digital breast mammography with tomosynthesis is performed in both the craniocaudal and mediolateral oblique views along with computer-aided detection (CAD). Left Limited breast ultrasound. FINDINGS: There are scattered areas of fibroglandular density (ACR BI-RADS breast composition Category b). There are no significant masses, abnormal calcifications, or other abnormalities. Targeted color Doppler ultrasound in the left breast scanning from 1-5 o'clock demonstrates normal follicular breast tissue. There is no sonographic abnormality. Targeted color Doppler ultrasound scanning from 8-10 o'clock demonstrates normal fibroglandular breast tissue. Results are provided to the patient at time of visit by the technologist. US/US breast LT limited mamm only IMPRESSION: No mammographic or sonographic abnormality to account for the patient's left breast pain and palpable lumps felt by the patient and the patient's physician. Recommend clinical evaluation and follow-up. Recommend screening mammography in one year. ASSESSMENT: BI-RADS BI-RADS 1 - Negative RECOMMENDATION: 1 year F/U This patient's information was entered into a reminder system with a target due date for their next mammogram. Electronically signed by: Maddie Schneider DO 08/01/2024 11:07 AM [facility] Dictated By: Maddie Schneider DO Signed By: <Electronically signed by Maddie Schneider DO in OV> 08/01/24 1107 DD/ 1045 TD/TT: 08/01/24 1107 Substance Abuse Prevention Coordinator: Assessment & Plan Assessment & Plan (1) Encounter for annual routine gynecological examination: Code(s): Z01.419 - Encounter for gynecological examination (general) (routine) without abnormal findings Category: Medical Plan: Discussed: Current recommendations for pap smears per ASCCP guidelines. Breast awareness, periodic self breast exams and yearly mammogram. Maintain a healthy lifestyle, well balanced diet including Calcium 1,200 mg and Vitamin D 600 IU daily, and routine exercise. Use of Replens vaginal moisturizer information provided with the use of visual pics on Internet. Contact the office with any postmenopausal bleeding. Patient verbalizes understanding and agrees to the plan of care. She was given opportunity to ask questions and all questions were answered to the best of my ability. RTO in 1 year for annual zone maintenance technician exam. This note is constructed using voice recognition software. While every effort has been made to ensure accuracy, environmental science program director errors may have been included. (2) Breast pain: Code(s): N64.4 - Mastodynia Category: Medical (3) Breast pain: Code(s): N64.4 - Mastodynia Category: Medical Plan Discuss her concerns with the breast pain she would like to pursue further evaluation, recommended consult with breast surgeon, agreeable with plan of care. Referral placed today. Orders: Referrals Breast Surgery Referral N64.4 - Mastodynia, Z01.419 - Encounter for gynecological examination (general) (routine) without abnormal findings Coding Level of Care Code Est Pt Prev Care 40-64y(42890) Diagnoses Encounter for annual routine gynecological examination Z01.419 Breast pain N64.4
[2024-11-19 09:02] VITALS: BP 120/74; BMI 34.4
--- OUTSIDE RECORDS SUMMARY | 2024-11-19 09:50 | XMS_ITS ---
Author Organization [facility] Address [address] [address] Care Team Providers Care Haz Tech Name Role Phone Tanvir Garsia Primary Care Provider ELVIRA Mccullough Unavailable [phone] REASON FOR VISIT records from PCP in [facility] Encounters Encounter Location Date Provider Diagnosis [facility] [address] [address] 06/06/2023 ELVIRA JOHNSTON Plan Of Treatment No Information Progress Notes * Danelle MAKOB: 6 (57 yo F)Acc No.[id number]:06/06/2023 Patient:?KrisolivierKindra :1965???Age:57 Y???Sex:Female Address:[facility] [place] [address] * true * Date:? Generated for Freddiei kaleb/Logan/eTransmitting on:?11/19/2024 09:50 AM EST
--- OUTSIDE RECORDS SUMMARY | 2024-11-19 09:51 | XMS_ITS | Clinical Summary ---
Author Organization [facility] Address [address] [place] [address] Care Team Providers Care Senior System Operator Name Role Phone MariTanvir hernandez J Primary Care Provider [phone] Allergies Active Allergy Reactions Criticality Noted Date Comments Amoxicillin-Pot Clavulanate 06/02/20 24 Penicillin G Swelling 06/02/2024 Treated for dental abscess. Throat felt tight and funny . Medications Medication Sig Dispensed Refills Start Date End Date Status citalopram (CeleXA) 20 MG tablet every night at bedtime. 0 05/25/2024 Active loratadine (CLARITIN) 10 MG tablet Take 1 tablet (10 mg total) by mouth. 0 01/06/2021 Active acetaminophen (TYLENOL EXTRA STRENGTH) 500 MG tablet Take by mouth every 12 (twelve) hours as needed. 0 Active Biotin 1 MG CAPS Take by mouth daily. 0 05/16/2022 Active Multiple Vitamin (MULTI-VITAMIN DAILY PO) Take 1 tablet by mouth daily. 0 Active vitamin B-12 (CYANOCOBALAMIN) 100 MCG tablet Take by mouth daily. 0 05/16/2022 Active Cholecalciferol (Vitamin D3) 1000 units CAPS Take 25 mcg by mouth. 0 05/16/2022 Active albuterol 108 (90 Base) MCG/ACT inhaler Inhale into the lungs 3 (three) times a day as needed. 0 10/12/2020 Active Ibuprofen-Acetaminophe n (Acetaminophen-Ibuprof en) 125-250 MG TABSIndications:Arthri tis Take by mouth 2 (two) times a day as needed. 0 Active Active Problems Problem Noted Date Diagnosed Date Anxiety 06/02/2024 Obesity (BMI 30.0-34.9) 06/02/2024 Osteoarthritis Family History Medical History Relation Name Comments Cataracts Brother Glaucoma Brother No Sig Med Hx Father MVA Deep vein thrombosis Mother after T SANZ Hypertension Mother Osteoarthritis Mother Glaucoma Sister Relation Name Status Comments Brother Alive Father Mother Alive Sister Alive Social History Tobacco Use Types Packs/Day Years Used Date Smoking Tobacco: Never Smokeless Tobacco: Never Tobacco Cessation:Counseling Given: Not Answered Alcohol Use Standard Drinks/Week Comments Yes 0 (1 standard drink = 0.6 oz pur e alcohol) infrequent/ Sex and Gender Information Value Date Recorded Sex Assigned at Not on file Gender Identity Not on file Sexual Orientation Not on file Job Start Date Occupation Industry Not on file Not on file Not on file Last Filed Vital Signs Vital Sign Reading Time Taken Comments Blood Pressure 142/83 06/02/2024 8:31 AM EDT Pulse 64 06/02/2024 8:31 AM EDT Temperature 35.6 ??C (96.1 ??F) 06/02/2024 8:31 AM ED T Respiratory Rate 18 06/02/2024 8:31 AM EDT Oxygen Saturation 100% 06/02/2024 8:31 AM EDT Inhaled Oxygen Concentration - - Weight 79.8 kg (176 lb) 06/02/2024 8:31 AM EDT Height 156 cm (5' 1.42 ) 06/02/2024 8:31 AM EDT Body Mass Index 32.8 06/02/2024 8:31 AM EDT Plan of Treatment Health Maintenance Due Date Last Done Comments Hepatitis C Screening 1965 Depression Screening 1977 BMI Counseling 12/08/1983 Preventative Health Evaluation 12/08/1983 Cervical Cancer Screening (Pap Smear) 1986 Hepatitis B Vaccines (2 of 3 - 19+ 3-dose series) 11/01/2007 10/04/2007 Colon Cancer Screening (Colonoscopy) 2010 Breast Cancer Screening (Mammogram) 12/08/2015 COVID-19 Vaccine ( - 2023-2 5 season) 2024 11/12/2020, 10/22/2020 Influenza Vaccine (#1) 2024 06/14/2020 DTap / Tdap / Td (3 - Td or Tdap) 04/30/2029 04/30/2019, 10/04/2007 Shingrix-Zoster Vaccine Completed 09/08/20, 06/21/2020 Pneumococcal Vaccine Aged Out No long er eligible based on patient's age to complete this topic RSV Ped < 20 months Aged Out No longe r eligible based on patient's age to complete this topic Care Teams Senior System Operator Relationship Specialty Start Date End Date Tanvir Garsia [address] [facility] [place] [phone] PCP - General Family Medicine 06/02/24
--- OUTSIDE RECORDS SUMMARY | 2024-11-19 09:51 | XMS_ITS | Patient Health Record ---
Author Organization [facility] Address [address] [facility] [address] [place] [id number] Care Team Providers Care Grinding And Polishing Laborer Name Role Phone Tanvir Garsia Primary Care Provider Unavailabl e Allergies Allergen (clinical drug ingredient) Drug/Non Drug Allergy documented on EMR Reaction Allergy Type Onset Date Status amoxicillin / clavulanate Augmentin Rash/Dermatitis Drug Allergy Active Substance with penicillin structure and antibacterial mechanism of action (substance) Penicillins throat closes Drug Allergy Active Reason For Referral No Information Medications Medication SIG (Take, Route, Frequency, Duration) Notes Start Date End Date Status Loratadine 10 MG 1 tablet Orally Once a day Active Diclofenac Sodium 1 % 4 grams Transderma l to foot Twice a day for 30 day(s) 02/16/2021 Not-Taking Multivitamin - 1 tablet Orally Once a day Active Vitamin B-12 Active Problems Problem Type SNOMED Code ICD Code Onset Dates Problem Status W/U Status Risk Notes Problem 89658242 Other chronic pain (G89.29) Active confirmed Problem Negro's neuroma of left foot ([id number] 05) 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 Plan Of Treatment Pending Test Test Name Order Date Rheumatoid Arthritis Factor 01/28/2021 RADHA w/Reflex if Positive 01/28/2021 ESR 01/28/2021 X ray : Foot, left 3v 01/28/2021 X ray : Foot, right 3v 01/28/2021 CITRULLINE PEPTIDE ANTIBODY 01/28/2021 C-REACTIVE PROTEIN 01/28/2021 THYROID PANEL (TSH, FT4) 06/06/2023 Insurance Providers Payer Name Payer Address Payer Phone Subscriber Number Group Number Insured Name Patient Relationship to Insured Coverage Start Date Coverage End Date [employer] [address] [place] [phone] [id number] Kindra Mak Self - patient is the insured Medical (General) History Medical History History ICD Code Osteoarthritis of right hip. S/P THR in 2019 Paroxysmal atrial fibrillation- resolved (2017) Pulmonary nodule 3mm right upper lobe Adjustment reaction with anxiety and dep ression Constipation GERD (gastroesophageal reflux disease) Family hx of colon cancer Obesity (BMI 30.0-34.9) Chronic leg pain with cramping, paresthe ab, and hypertrophy Multiple joint arthralgias Hyperpigmentation of skin (? Melasma) Right popliteal cyst Hypouricemia Dry eyes Surgical History Surgery Date(Month/Year) Historical hip replacement, right 0 Historical Colonoscopy 09/21/20 Laparoscopic Cholecystectomy 10/31/17 Dilation and curettage with ablation 201 4 Esophagogastroduodenoscopy transoral-nor mal 10/06/10 Historical Colonoscopy 10/06/10 Historical carpal tunnel release 2004,20 09 Historical Tonsillectomy 1984 Stab Phlebectomy left hand surgery arthroplasty of 1st CM C 2021 Right Knee Surgery, arthroscopic meniscu s debridement 09/2022 Hospitalization History Reason Date(Month/Year) right hip replacement 03/2020
--- OUTSIDE RECORDS SUMMARY | 2024-11-19 09:51 | XMS_ITS | Data Portability ---
Author Organization [place] [facility] Jodie Mcclelland [facility] [place] Address [address] [place] [address] Assessment Encounter Date Assessment Date Assessment LastModified by Organization Details LastModified Time 06/12/2024 06/12/2024 Patient opted fo r a telephone visit because it is clinically appropriate for the information reviewed and meets the patient's technological ability and equipment access. I confirmed patient identity verbally and they were advised about video/telephone delivery of care, HIPAA privacy and risk of communicating over appropriate video capable devices. The use of audio-only or video telecommunication technology is consistent with state and federal requirements. Patient stated understanding of the limitation of the treatment provided via audio/video and consents to this visit today. Patient stated they are comfortable that they are in a quiet and private location to speak freely about their health. The patient understands that today's visit will be submitted to the patient's insurance and may incur a co-pay or deductible. Patient is scheduled for left total knee arthroplasty at [facility]. They have significant joint pain, dysfunction and disability that impact many of their activities of daily living. They have failed to respond to alternate, conservative treatment measures. Physical Exam: Patient is located at their home. The patient's calculated BMI is 32.8. Patient is awake, alert and oriented to person, place and time. They are interacting appropriately with this examiner. They are asking and answering questions appropriately. Speech is clear and intelligible. The patient's communication skills do not indicate any significant neurologic dysfunction. After careful review of patient history and their individual risk factors for infection, they will not require additional antibiotic coverage after surgery. It has been determined that ASA is the appropriate medication for the prevention of DVT/PE. The patient wishes to be discharged home on the day of surgery. All questions were answered to the patients' satisfaction. More than twenty total minutes have been spent on this patient encounter plus a review of relevant imaging tests, medical history, medication lists, and medical clearance documents. This patient was seen and evaluated by Jeronimo Das MS, PA-C in indirect conjunction with [facility] provider Abdi Oneal MD. He agrees with history, physical examination, tests/diagnostic imaging, and treatment plan. [email or web address] Not available 06/12/2024 14:18:43 07/03/2024 07/03/2024 HPI : Patient is doing well at 2 week follow up status post left total knee arthroplasty. They deny fever, chest pain and shortness of breath. They are compliant with anticoagulation protocol. She has already contacted this office describing an itchy rash. It is on both forearms and her buttocks. She has tried using Benadryl but it has not resolved. She has made every effort to cut back on her medicines. She has not taken oxycodone for 5 days. She was advised to stop the methocarbamol and has plans to do so. She denies any airway compromise. She has been compliant with range of motion exercises at home and continues to use aspirin for DVT prophylaxis. She recognizes swelling and discomfort at the left knee but is making gradual progress. Physical Exam : Patient is well nourished, well- developed, in no acute distress, with appropriate mood and affect. The patient demonstrates good knee strength. The incision is clean and dry with no sign of infection. Negative calf tenderness and Yanni's sign. Range of motion is from 0-85 degrees. Assessment/Plan : She will be provided a prescription for hydrocodone to use as an alternative to the oxycodone in case she needs it for physical therapy. She is also provided a prescription for Atarax to use as an alternative to Benadryl for treatment of urticaria. We have had lengthy conversation about hypersensitivity reaction. It is unclear exactly what she is reacting to. Therefore, I have encouraged her to take a minimalist approach when it comes to her medicines. The patient is doing well status post knee arthroplasty. Continue 28 day course of anticoagulation therapy. The patient will do physical therapy and return for follow-up in 1 month for re-evaluation; sooner with any problems. This patient was seen and evaluated by Jeronimo Das MS, PA-C in indirect conjunction with [facility] provider Abdi Oneal MD. He agrees with history, physical examination, tests/diagnostic imaging, and treatment plan. [email or web address] Not available 07/03/2024 09:58:31 07/25/2024 07/25/2024 HPI : Patient is here for a 6 week follow-up from a left total knee replacement. She is recovering well. She is working with therapy. Pain is improving. She is doing ibuprofen and Tylenol. She is working on her motion. She is happy with her progress so far. Physical Exam : Patient is well nourished, well- developed, in no acute distress, with appropriate mood and affect. The patient is AAOx3. The patient demonstrates good knee motion and strength. Range of motion today is 0 to 110 degrees. The incision is well healed. Assessment/Plan : The patient is functioning well 6 weeks from total knee arthroplasty. Continue physical therapy as needed. Return for follow-up in 2 months with x-rays at that time. If her right hip is still bothering her at that time, we can get x-rays of the right hip as well. Not available 07/25/2024 09:35:37 09/05/2024 09/05/2024 HPI : Patient is here for about 2-month follow-up from left total knee replacement. She notes that she is still having pain and swelling. She is nervous about returning to work next week because she has to be on her feet for 10 hours. She notes when she is walking for longer periods of time she can feel the aching and pain. She is still working with physical therapy. Physical Exam : Patient is well nourished, well- developed, in no acute distress, with appropriate mood and affect. The patient is AAOx3. The patient demonstrates good knee motion and strength. There is good stability of the left knee. The incision is well healed. Range of motion today is 5 to 115 degrees. Assessment/Plan : Patient is about 2 months from left total knee replacement. I do not see any issues on exam or imaging. We discussed that her symptoms are within the realm of normal while recovering from a knee replacement. It is a 1 year recovery period, I expect her to get improvements over the next couple months. I agree with that she is not ready to return to work. She is going to continue therapy. I am prescribing meloxicam today. She will follow-up with me in 2 months with repeat x-rays and reevaluation at that time. Not available 09/05/2024 09:42:12 11/07/2024 11/07/2024 HPI : Patient is here for 5-month follow-up from left total knee replacement. Overall she is recovering well from the left knee. Her baseline pain is very low maybe a 1 out of 10. She does have a high demand job where she is on her feet all day. At the end of the day she can have pain and discomfort. She feels some stiffness in the back of the knee. She is doing her exercises. Overall she notes steady improvements. Overall, patient reports good pain relief in the knee and satisfactory temple of function in terms of activities of daily living. She does have a history of a right total hip replacement. We had previously discussed possible right hip flexor tendinitis. This has been worsening. There is slight overhang of her cup based on CT. Physical Exam : Patient is well nourished, well-developed, in no acute distress, with appropriate mood and affect. The patient is oriented to time, place, and person. Respirations are even and unlabored. There is no inguinal adenopathy. Examination of the right hip shows well-healed skin incision. There is pain with resisted hip flexion. There is good range of motion of the right hip. No pain with internal rotation. The affected limb is well-perfused, with well healed skin incision. The patient demonstrates good knee motion, stability, and strength. The knee moves from 0-120 degrees. The alignment of the knee is neutral. Muscle strength is normal. Pedal pulses are palpable. Hip examination, including flexion and internal rotation, was negative in that groin pain was not produced. Assessment/Plan : This patient is functioning well 5 months after left total knee arthroplasty. Continue knee conditioning exercises. Zide-sav-euwkrzd medications as needed. Ultimate failure may occur due to mechanical wear, loosening or breakage. Follow-up is recommended to assess for the possibility of failure. Regarding her right hip flexor tendinitis next to total hip replacement, she does feel like her symptoms are worsening. This has not responded to conservative management. I am going to send a referral for IR guided iliopsoas sheath injection. Plan for follow-up at 1 year from her total knee replacement surgery we can evaluate both her left knee and right hip at this time. If her right hip symptoms are continued before then, she is welcome to follow-up before then. Not available 11/07/2024 15:12:36 Plan of Treatment Reminders Order Date Submit Date Provider Last Modified By Organization Details Last Modified Time Details Appointments FOLLOW UP 2024 03:15P M Abdi Oneal MD Not available Not available Not available Lab None recorded. Referral None recorded. Procedures injection , hip, fluoro guidance (PROC) - RIGHT ILIOPSOAS FLEXOR TENDON SHEATH injection for flexor tendiniti s next to BENJAMIN 2024 025 [email or web address], [address], [address], [place], [address], 11/07/2024 15:19:35 Surgeries None recorded. Imaging XR, knee, 3 view 2024 025 [email or web address] [facility], [address], [address], [place], [address], 11/07/2024 15:07:39 XR, knee, 3 view 2023 024 [email or web address] [facility], [address], [address], [place], [address], 09/05/2024 10:32:38 Medication Orders meloxicam 15 mg tablet 2023 025 [facility] #[id number], [address] [place], [address], 11/07/2024 15:26:35 hydrocodo ne 5 mg-acetam inophen 325 mg tablet 2023 024 [email or web address] [facility]/Pharmacy #[id number], [address] [place], [address], 07/25/2024 09:21:26 hydroxyzi ne HCl 25 mg tablet 2023 024 [facility] #[id number], [address] [place], [address], 07/25/2024 09:22:12 Patient TargetsNo targets recorded. Patient Instructions Encounter Date Encounter Id Patient Instructions Last Modified By Organization Details Last Modified Time 07/03/2024 [id number] physical therapy * - Diagnosis: Status post left-sided total knee arthroplasty Evaluate and treat as indicated to reduce pain and to improve strength, mobility, stability, range of motion, and function. Please teach a home exercise plan and incorporate PT into patient's exercise routine. 2-3 sessions weekly for 6-8 weeks. [email or web address] Not available 07/10/2024 11:45:55 09/05/2024 [id number] AP, lateral, and patellar radiographs of the left knee taken today demonstrate satisfactory position and alignment of components following left total knee replacement. Not available 09/05/2024 09:42:16 11/07/2024 [id number] AP, lateral, and patellar radiographs of the left knee taken today demonstrate satisfactory position and alignment of components following left total knee replacement. Not available 11/07/2024 15:12:45 Reason for Referral None Reported. Results Created Date Observation Date Name Description Value Unit Range Abnormal Flag Note LastModifiedBy Organization Detail LastModifiedTime 05/21/20 24 05/21/2024 CT, knee, w/o contr ast No observ ation record ed. [email or web address] [address], [place], [address], 05/21/2024 18:52:08 Result Notes None recorded. Problems Name Problem SNOMED Code Status Onset Date Resolution Date Notes Provider Name and Address Organization Details Recorded Time Osteoarthri tis of left knee joint 2847753105083 09 Active 2023 Abdi Oneal MD [address], [place], [address], [place] [facility], P 4 12:04:55 Disorder of hip 381834071 Active [address], [place], [address], [place] [facility], P 4 12:05:16 History of total knee arthroplast y 2062993453351 Active 2023 JERONIMO DAS PA-C [address] [facility],[address], [place], [address], [place] [facility], P 4 09:52:43 Tendinitis of hip 570322675 Active 2024 Abdi Oneal MD [address] [facility],[address], [place], [address], [place] [facility], P 5 15:06:42 Problem Notes None recorded. Procedures Surgical History Date Name Laterality Status Provider Name and Address Organization Details Recorded Time 06/17/20 TOTAL KNEE ARTHROPLASTY (SURG) completed Geeta Dubon [facility] 06/18/2024 09:01:58 Imaging Results Imaging Date Name Status LastModified by Organiz ation Details LastModified Time 05/21/2024 CT, knee, w/o contrast completed [email or web address] [address] [facility] [address], [place], [address], 05/21/2024 18:52:08 Procedure Notes None recorded. Medical Equipment None Reported. Allergies Allergen ID Allergen Name Allergen Category Reaction Reaction Severity Criticality Documentation Date Start Date Code Code System Note Provider Name and Address Organization Details Recorded Time 84423 Augmentin medicatio n Not available Not available Not available 07/25/2024 97352 2 RxNorm Caryl Ficarra null, [place] [facility], P 4 09:20:39 76101 penicilla mine medicatio n Not available Not available Not available 07/25/2024 7975 RxNorm Caryl Ficarra null, [place] [facility], P 4 09:20:48 13326 methocarb lauren medicatio n Not available Not available Not available 07/25/2024 6845 RxNorm Caryl Ficarra null, [place] - [facility], P 4 09:20:59 Medications Name Sig Start Date Stop Date Status Note LastModified by Organization Details LastModified Time doxycycline hyclate 100 mg capsule TAKE ONE CAPSULE BY MOUTH TWICE DAILY UNTIL DONE 06/11 completed Not Available Not Available Not Available trazodone 50 mg tablet TAKE 1 TABLET BY MOUTH EVERY DAY AT BEDTIME NEEDED FOR SLEEP FOR 30 DAYS 06/11 completed Not Available Not Available Not Available azithromyci n 250 mg tablet TAKE 2 TABLETS BY MOUTH TODAY, THEN TAKE 1 TABLET DAILY FOR 4 DAYS DIRECTED 06/11 completed Not Available Not Available Not Available ibuprofen 800 mg tablet TAKE 1 TABLET BY MOUTH 3 TIMES A DAY UNTIL FINISHED active Not Available Not Available No t Available citalopram 10 mg tablet active Not Available Not Available Not Available hydrocodone 5 mg-acetamin ophen 325 mg tablet TAKE 1 TABLET BY MOUTH EVERY 6 TO 8 HOURS NEEDED 07/25 completed Not Available Not Available Not Available meloxicam 15 mg tablet Take 1 tablet every day by oral route as needed, for pain. 11/07 completed Not Available Not Available Not Available clindamycin HCl 150 mg capsule TAKE 4 CAPS 1 HOUR PRIOR TO APPT 06/11 completed Not Available Not Available Not Available aspirin 81 mg tablet,abiola yed release TAKE 1 TABLET BY MOUTH TWICE A DAY FOR 28 DAYS 07/25 completed Not Available Not Available Not Available acetaminoph en 500 mg tablet TAKE 2 TABLETS EVERY 8 HOURS BY ORAL ROUTE FOR 28 DAYS. 11/07 completed Not Available Not Available Not Available ondansetron 8 mg disintegrat ing tablet DISSOLVE 1 TABLET DISSOLVED UNDER THE TONGUE EVERY 8 HOURS NEEDED FOR NAUSEA. 07/25 completed Not Available Not Available Not Available citalopram 20 mg tablet TAKE 1 TABLET BY MOUTH EVERY DAY 05/29 completed Not Available Not Available Not Available methocarbam ol 750 mg tablet TAKE 1 TABLET BY MOUTH EVERY 6 HOURS NEEDED 07/25 completed Not Available Not Available Not Available clindamycin 1 % topical gel APPLY TO ACTEVE AREAS EVERY DAY NEEDED 11/07 completed Not Available Not Available Not Available benzonatate 100 mg capsule SWALLOW WHOLE TAKE 1 CAPSULE 3 TIMES A DAY NEEDED *DO NOT BREAK CHEW, DISSOLVE, CUT, OR CRUSH* 06/11 completed Not Available Not Available Not Available pantoprazol e 40 mg tablet,abiola yed release TAKE 1 TABLET BY MOUTH EVERY DAY NEEDED. FOR 28 DAYS. 07/25 completed Not Available Not Available Not Available prednisone 50 mg tablet TAKE 1 TABLET BY MOUTH DAILY FOR 6 DAYS 06/11 completed Not Available Not Available Not Available hydroxyzine HCl 25 mg tablet TAKE 1 TABLET 3 TIMES A DAY BY ORAL ROUTE NEEDED, FOR ITCHY RASH/HIVE S. 07/25 completed Not Available Not Available Not Available codeine 10 mg-guaifene sin 100 mg/5 mL oral liquid 5 ML ORALLY EVERY 6 TO 8 HOURS NEEDED FOR COUGH 11/07 completed Not Available Not Available Not Available albuterol sulfate HFA 90 mcg/actuati on aerosol inhaler INHALE 1 PUFF INTO THE LUNGS 4 TIMES A DAY NEEDED FOR COUH/BRON COSPASMS active Not Available Not Available No t Available fluticasone propionate 50 mcg/actuati on nasal spray,suspe nsion SPRAY 1 SPRAY INTO EACH NOSTRIL EVERY DAY active Not Available Not Available No t Available oxycodone 5 mg tablet TAKE 1 TABLET BY MOUTH EVERY 6 HOURS NEEDED 07/25 completed Not Available Not Available Not Available Loratadine- D 10 mg-240 mg tablet,exte nded release 24 hr 1 tablet every day by oral route. active Not Available Not Available No t Available Asmanex Twisthaler 220 mcg/actuati on(30 doses) breath activated inhalr INHALE 1 PUFF INHALED DAILY IN THE PM. NOT TO EXCEED 1 PUFF PER DAY (220MCG PER DAY) active Not Available Not Available No t Available Senexon-S 8.6 mg-50 mg tablet TAKE 1 TABLET BY MOUTH TWICE A DAY 07/25 completed Not Available Not Available Not Available tranexamic acid 650 mg tablet TAKE 3 TABLETS IN THE MORNING FOR 3 DAYS START ON THE FIRST DAY AFTER YOUR SURGERY. 07/25 completed Not Available Not Available Not Available Vitals Date Recorded Body height Body mass index (BMI) Body weight Provider Name and Address Organization Details Last Updated DateTime 09/05/2024 156.21 cm 31.8 kg/m2 14323.3 g Caryl Rey [place] [facility] 09/05/2024 09:19:33 Date Recorded Body height Provider Name an d Address Organization Details Last Updated DateTime 11/07/2024 156.[address] [place] [facility] 11/07/2024 14:48:49 Social History None recorded. Functional Status None recorded. Mental Status None recorded. Family History Nothing Reported. Medical History No medical history recorded. Gynecological HistoryNo gynecological history recorded. Obstetrics History GPAL:G 0 P 0 0 0 0 Past Encounters Encounter ID Performer Location Encounter Start Date Encounter Closed Date Diagnosis/Indication Diagnosis SNOMED-CT Code Diagnosis ICD10 Code Diagnosis Note [id number] MD AYLA Espinoza [address] [address] 12/21/2023 11:22:20 12/21/2023 12:04:22 Pain in right hip joint 0992934476 91754 M25.551 Pain of le ft knee region 6888067756 63443 M25.562 Additional diagnosis detail: Left knee pain, unspecifie d chronicity Osteoarthr itis of left knee joint 4827753324 06163 M17.12 Additional diagnosis detail: Primary osteoarthr itis of left knee Disorder of hip 11137455 6 M24.551 Additional diagnosis detail: Right hip flexor tightness History of repair of hip joint 396501057 Z96.641 Additional diagnosis detail: Status post right hip replacemen t [id number] MD AYLA Espinoza [address] [address] 06/12/2024 11:38:30 06/12/2024 14:24:09 Osteoarthritis of left knee joint 9928130718 07750 M17.12 [id number] [place] [address] [place] [address] 07/03/2024 09:21:59 07/03/2024 09:56:23 History of total knee arthroplasty 1444829146 105 Z96.652 [id number] MD AYLA Espinoza [address] [place] [address] 07/25/2024 09:12:37 07/25/2024 09:36:18 History of total knee arthroplasty 7787337863 105 Z96.652 [id number] MD AYLA Espinoza [address] [place] [address] 09/05/2024 09:13:45 09/05/2024 09:39:55 History of operative procedure on knee 128254294 Z96.652 Surgical follow-up 44602 4000 Z47.1 Z96.652 [id number] MD AYLA Espinoza [facility] [address] [facility] [address] [place] [address] 11/07/2024 14:38:52 11/07/2024 15:07:39 History of left total knee replacement 4496308044 587987 Z96.652 Tendinitis of hip 717294 006 M76.891 Surgical follow-up 04979 4000 Z47.1 Z96.652 Health Concerns Section Related Observation LastModified by Organization Detai ls LastModified Time None Recorded Concern Status LastModified by Organization Details LastModified Time None Recorded Advance Directives Directive None Recorded Payers Encounter Date Sequence Insurance Name Policy Number Policy Santana Covered Member ID Santana Member ID Guarantor Name 06/12/2024 1 [facility] [id number] Hollis Mak [id number] Kindra Mak 07/03/2024 1 [facility] [id number] Hollis Mak [id number] Kindra Mak 07/25/2024 1 [facility] [id number] Hollis Mak [id number] Kindra Mak 09/05/2024 1 [facility] [id number] Hollis Mak [id number] Kindra Mak 11/07/2024 1 [facility] [id number] Hollis Mka [id number] Kindra Mak OBGyn Episode No OBEpisode recorded.
--- OUTSIDE RECORDS SUMMARY | 2024-11-19 09:51 | XMS_ITS ---
Author Organization [facility] Address [address] [address] Care Team Providers Care Catalog Librarian Name Role Phone Tanvir Garsia Primary Care Provider ELVIRA Mccullough Unavailable [phone] REASON FOR VISIT Lab Results Encounters Encounter Location Date Provider Diagnosis [facility] [address] [address] 06/18/2023 ELVIRA JOHNSTON Plan Of Treatment No Information Progress Notes * Danelle MAKOB: 6 (57 yo F)Acc No.[id number]:06/18/2023 Patient:?Obdulio Kindra :1965???Age:57 Y???Sex:Female Address:[address] [place] [address] * true * Date:? Generated for Cameron manuel/Logan/eTransmitting on:?11/19/2024 09:50 AM EST
--- OUTSIDE RECORDS SUMMARY | 2024-11-19 09:51 | XMS_ITS ---
Author Name [facility] Organization Unknown History of Medication Use Medication Directions Dispensed Refills Start Date End Date [facility] loratadine (CLARITIN) 10 MG tablet Take 1 tablet (10 mg total) by mouth. 01/06/2021 active ibuprofen 800 mg tablet TAKE 1 TABLET BY MOUTH 3 TIMES A DAY UNTIL FINISHED active trazodone 50 mg tablet TAKE 1 TABLET BY MOUTH EVERY DAY AT BEDTIME NEEDED FOR SLEEP FOR 30 DAYS active azithromycin 250 mg tablet TAKE 2 TABLETS BY MOUTH TODAY, THEN TAKE 1 TABLET DAILY FOR 4 DAYS DIRECTED active albuterol sulfate HFA 90 mcg/actuation aerosol inhaler INHALE 1 PUFF INTO THE LUNGS 4 TIMES A DAY NEEDED FOR COUH/BRONCOSPASM S active Tylenol Extra Strength 500 mg tablet Take 2 tablets every 8 hours by oral route for 28 days. 06/12/2024 active pantoprazole 40 mg tablet,delayed release TAKE 1 TABLET BY MOUTH EVERY DAY NEEDED. FOR 28 DAYS. 07/25/2024 completed fluticasone propionate 50 mcg/actuation nasal spray,suspension SPRAY 1 SPRAY INTO EACH NOSTRIL EVERY DAY active pantoprazole 40 mg tablet,delayed release Take 1 tablet every day by oral route as needed. for 28 days. 06/12/2024 active Biotin 1 MG CAPS Take by mouth daily. 05/16/2022 active vitamin B-12 (CYANOCOBALAMIN) 100 MCG tablet Take by mouth daily. 05/16/2022 active codeine 10 mg-guaifenesin 100 mg/5 mL oral liquid 5 ML ORALLY EVERY 6 TO 8 HOURS NEEDED FOR COUGH active citalopram 20 mg tablet TAKE 1 TABLET BY MOUTH EVERY DAY active citalopram 10 mg tablet active Senexon-S 8.6 mg-50 mg tablet TAKE 1 TABLET BY MOUTH TWICE A DAY 07/25/2024 completed codeine 10 mg-guaifenesin 100 mg/5 mL oral liquid 5 ML ORALLY EVERY 6 TO 8 HOURS NEEDED FOR COUGH active ondansetron 8 mg disintegrating tablet Take 1 tablet dissolved under the tongue every 8 hours as needed for nausea. 06/12/2024 active Allergies Allergen Reaction Severity Comment Documented Date Source Statu s METHOCARBAMOL [facility] AUGMENTIN E[facility] PENICILLAMINE E[facility] Problems Problem Status Onset Date Problem Type Date of Resolution Source Tendinitis of hip active 2024-11-07 ProblemAct [facility] Disorder of hip active 2023-12-21 ProblemAct EN S_AONECT History of total knee arthroplasty active 2024-07-03 ProblemAct [facility] Osteoarthritis of left knee joint active 2023-12-21 ProblemAct [facility] Anxiety active 2024-06-02 ProblemAct [facility] Osteoarthritis active ProblemAct [facility] N[facility] Primary osteoarthritis of left knee active EncounterDiagnosisAct CTTHNE MG Obesity (BMI 30.0-34.9) active 2024-06-02 ProblemAct [facility]
--- OUTSIDE RECORDS SUMMARY | 2024-11-19 09:51 | XMS_ITS | Continuity of Care Document ---
Author Organization [place] [facility] Jodie Mcclelland AONE Dewar Address [address] [place] [address] Assessment Encounter Date Assessment Date Assessment LastModified by Organization Details LastModified Time 11/07/2024 11/07/2024 HPI : Patient is here [...] pain relief in the knee and satisfactory denominational of function in terms of activities of [...] total knee arthroplasty. Continue knee conditioning exercises. Irhb-tar-vcrxtx r medications as needed. Ultimate failure may occur [...] tendiniti s next to BENJAMIN 2024 025 [email or web address] [facility], [address] [place] [address], [facility] [address], [address], 11/07/2024 15:19:35 Surgeries None recorded. Imaging XR, knee, 3 view 2024 025 [email or web address] [facility], [place], [address], 11/07/2024 15:07:39 Medication Orders None recorded. Patient TargetsNo targets recorded. Patient Instructions Encounter Date Encounter Id Patient Instructions Last Modified By Organization Details Last Modified Time 11/07/2024 [id number] AP, lateral, and patellar radiographs of the left knee taken today demonstrate satisfactory position and alignment of components following left total knee replacement. Not available 11/07/2024 15:12:45 Reason for Referral None Reported. Problems Name Problem SNOMED Code Status Onset Date Resolution Date Notes Provider Name and Address Organization Details Recorded Time Osteoarthri tis of left knee joint 3239381246400 09 Active 2023 Abdi Oneal MD [address], [place], [address], [place] [facility] [place], P 4 12:04:55 Disorder of hip 246898952 Active 2023 Abdi Oneal MD [address], [place], [address], [place] [facility] [place], P 4 12:05:16 History of total knee arthroplast y 0290548568542 Active 2023 JERONIMO DAS PA-C [address], [place], [address], [place] [facility] [place], P 4 09:52:43 Tendinitis of hip 505409433 Active 2024 Abdi Oneal MD [address], [place], [address], [place] [facility] [place], P 5 15:06:42 Problem Notes None recorded. Procedures Surgical History Date Name Laterality Status Provider Name and Address Organization Details Recorded Time 06/17/20 24 TOTAL KNEE ARTHROPLASTY (SURG) completed Geeta Dubon [facility] 06/18/2024 09:01:58 Imaging Results None recorded. Procedure Notes None recorded. Medical Equipment None Reported. Allergies Allergen ID Allergen Name Allergen Category Reaction Reaction Severity Criticality Documentation Date Start Date Code Code System Note Provider Name and Address Organization Details Recorded Time 79089 Augmentin medicatio n Not available Not available Not available 07/25/2024 04019 2 RxNorm Caryl Ficarra null, [place] [facility] [place], P 4 09:20:39 58885 penicilla mine medicatio n Not available Not available Not available 07/25/2024 7975 RxNorm Caryl Ficarra null, [place] [facility] [place], P 4 09:20:48 72449 methocarb lauren medicatio n Not available Not available Not available 07/25/2024 6845 RxNorm Caryl Ficarra null, [place] [facility] [place], P 4 09:20:59 Medications Name Sig Start [...] Not Available Vitals Date Recorded Body height Provider Name an d Address Organization Details Last Updated DateTime 11/07/2024 [address] [place] [facility] [place], P 11/07/2024 14:48:49 Social History None recorded. Functional Status None recorded. Mental Status None recorded. Family History Nothing Reported. Medical History No medical history recorded. Gynecological HistoryNo gynecological history recorded. Obstetrics History GPAL:G 0 P 0 0 0 0 Past Encounters Encounter ID Performer Location Encounter Start Date Encounter Closed Date Diagnosis/Indication Diagnosis SNOMED-CT Code Diagnosis ICD10 Code Diagnosis Note [id number] MD AYLA Espinoza [facility] [address] [facility] [address] [place] [address] 11/07/2024 14:38:52 11/07/2024 15:07:39 History of left total knee replacement 1545997865 004238 Z96.652 Tendinitis of hip 749893 006 M76.891 Surgical follow-up 96103 4000 Z47.1 Z96.652 Health Concerns Section Related Observation LastModified by Organization Detai ls LastModified Time None Recorded Concern Status LastModified by Organization Details LastModified Time None Recorded Payers Encounter Date Sequence Insurance Name Policy Number Policy Santana Covered Member ID Santana Member ID Guarantor Name 11/07/2024 1 [facility] [id number] Hollis Mak [id number] Kindra Mak OBGyn Episode No OBEpisode recorded.
--- OUTSIDE RECORDS SUMMARY | 2024-11-19 09:51 | XMS_ITS | Continuity of Care Document ---
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 Tobacco Use Start: Unknown Never Smoked Cigarettes ETOH Use Rarely consumed liquor in e past Allergies and adverse reactions Active Allergies Criticality Reaction Severity Comments Date Amoxicillin Unable to assess criticality Anaphylaxis Severe 09/03/2023 Augmentin Unable to assess criticality Severe 09/03/2023 Penicillin Unable to assess criticality Severe 09/03/2023 Medications Active Medications SIG Qnty Indications Ordering Provider Date Citalopram Xlwnhicxkdhr76on Tablets Take 1 Tablet By Mouth Every Day Tanvir Garsia Albuterol Sulfate NHV299(90Base) mcg/Act Aerosol Kang Andrews MD Vital Signs Date Vital Result Comment 09/03/2023 1:30pm BP Systolic 130 mmHg BP Diastolic 70 mmHg Heart Rate 62 /min Height 61 inches 5'1 Weight 175.00 lb BMI (Body Mass Index) 33.1 kg/m2 Medical Devices Description No Information Available Encounters Type Date Location Provider Dx Diagnosis Office Visit 09/03/2023 1:30p Main Office GABBY Aguilar 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
--- OUTSIDE RECORDS SUMMARY | 2024-11-19 09:51 | XMS_ITS ---
Author Organization [facility] Address [address] [address] Care Team Providers Care Optical Lab Technician Name Role Phone Tanvir Garsia Primary Care Provider ELVIRA Mccullough Unavailable [phone] REASON FOR VISIT lab results Encounters Encounter Location Date Provider Diagnosis [facility] [address] [address] 06/08/2023 ELVIRA JOHNSTON Plan Of Treatment No Information Progress Notes * Danelle MAKOB: [birth year] (57 yo F)Acc No.[id number]:06/08/2023 Patient:?Obdulio Kindra :1965???Age:57 Y???Sex:Female Address:[address] [place] [address] * true * Date:? Generated for Cameron manuel/Logan/eTransmitting on:?11/19/2024 09:50 AM EST
== END 2024-11-19 09:37 | disposition home or self-care (01) ==
LOC: HO.HWS 08:59
PROVIDERS: PCP Nurse Practitioner Family; Visit Provider Advanced Practice Midwife
DX: Z01.419 Encounter for gynecological examination (general) (routine) without abnormal findings (principal); N64.4 Mastodynia
CPT/HCPCS: 99396; 99459

== ENCOUNTER → 2024-11-19 08:59 | Outpatient (BNVA) | payer OTHER, SELFPAY | PROVIDERS: PCP Nurse Practitioner Family; Visit Provider Advanced Practice Midwife ==

== ENCOUNTER 2024-12-12 09:13 | Outpatient (AMB) | payer OTHER, SELFPAY ==
--- NOTE | 2024-12-12 09:15 | A.OFFVIS_ITS ---
Vital Signs 12/12/24 09:27 Height 5 ft 1.5 in Weight 180 lb BMI 33.5 BP 122/60 Blood Pressure Location Lt brachial Position Sitting Pulse 66 Intake Visit Reasons: Mastodynia left breast 2-3 o'clock area position Intake Note: Patient is seen in office for mastodynia of the left breast 2-3 o'clock area. Pt c/o: pain in the left breast for a couple of yrs, does not feel a lump, had bx done on the right side (benign), no prior breast surgeries, infections, no fm hx of breast cancer us/mm:08/01/24 Marine Habitat Resource Specialist Required: No Occupational Health And Safety Officer: Occupational Health And Safety Officer Present Accompanied by: Self / Same As Patient Allergies amoxicillin [From Augmentin] Allergy (Severe, Verified 12/12/24 09:27) Anaphylaxis clavulanic acid [From Augmentin] Allergy (Severe, Verified 12/12/24 09:27) Anaphylaxis Penicillins Allergy (Severe, Verified 12/12/24 09:27) Anaphylaxis methocarbamol Adverse Reaction (Verified 12/12/24 09:27) hives Medication List - Last Reconciled 12/12/24 by Tanvir Dawson MD albuterol sulfate 90 mcg/actuation 1 inh inhalation QID PRN citalopram 10 mg PO DAILY loratadine (Claritin) 10 mg PO DAILY mometasone (Asmanex Twisthaler) 1 inh inhalation DAILY multivitamin 1 tab PO DAILY HPI Comments Details: 59-year-old female patient presenting with a several year history of complaints of left breast pain felt mainly in the upper outer quadrant. There was a question of a palpable mass in this location and a mammogram and ultrasound performed on 08/01/2024. This revealed no suspicious findings in either the mammogram or ultrasound (BI-RADS 1). Routine follow-up in 1 year is recommended. Pain is intermittent and occasionally sharp and felt either in the areolar location or upper outer quadrant. She denies any skin changes, nipple discharge, or enlarged lymph nodes. She had a previous history of a right breast cyst which was aspirated. She denies any other history of breast problems or breast surgery. Her family history is negative for breast or ovarian cancer. She is 6 para 2 living children. Her 1st child was born when she was 23. Menarche was at the age of 13. Her last period was in 2015 after an ablation. [facility] Medical History Breast pain Arthritis Surgical History History of knee replacement procedure of left knee History of endometrial ablation Hx of tonsillectomy History of carpal tunnel surgery History of cholecystectomy History of right hip replacement Family History Mother Hypertension Maternal Grandmother Colon cancer Social History Housing: House Patient Tobacco Use Status: Never used Tobacco e-Cigarette/Vaping Use: Never Used Second Hand Smoke Exposure: No service: No Current occupational status: employed Cognitive needs: No Hearing needs: No Vision needs: No Female Reproductive History Menstrual Age of Menarche: 13 Date of menopause: 09/24/14 Total pregnancies: 6 Number of Living Children: 2 Review of Systems Const All systems reviewed & are unremarkable except as noted in HPI and below Denies chills, Denies fever(s), Denies headache(s), Denies poor appetite and Denies weakness ENT Denies headache(s) Card Denies chest pain, Denies irregular heart rhythm, Denies palpitations and Denies dyspnea Resp Denies cough, Denies excessive phlegm production and Denies dyspnea GI Denies abdominal pain, Denies bloating, Denies change in bowel habits, Denies constipation, Denies heartburn, Denies diarrhea, Denies nausea and Denies vomiting Denies urinary frequency Musc Denies back pain, Denies muscle weakness and Denies numbness Skin/Breast Reports as per HPI, Reports breast pain, Reports breast mass, Denies changing lesions, Denies rash and Denies unusual bruising Neuro Denies headache(s), Denies numbness, Denies paresthesias and Denies weakness Psych Denies anxiety and Denies depression Endo Denies palpitations Amaury/Lymph Denies lymphadenopathy Physical Exam Vital Signs: Last Vital Signs Pulse 66 12/12/24 09:27 BP 122/60 12/12/24 09:27 BMI result Body Mass Index 33.5 Const General: cooperative and no acute distress Nutritional Appearance: well nourished Orientation/consciousness: patient oriented x3 Limitations: no limitations HEENT Head: Yes normocephalic and Yes atraumatic Ears: hearing grossly normal bilaterally Chest Other: Left breast: No skin change, no nipple retraction, no nipple discharge, mild fibrocystic changes noted in the upper outer quadrant but no palpable mass, no enlarged lymph nodes, tenderness elicited in the upper outer quadrant. Right breast: No skin change, no nipple retraction, no nipple discharge, no palpable mass, no enlarged lymph nodes. Resp Effort & Inspection: normal respiratory effort, no audible wheezes, no cough and no respiratory distress Cardio Jugular venous distension: no JVD GI Inspection: Yes normal to inspection Skin Other: Warm, dry, no rash Neuro General: patient oriented x3 Extrem General: Yes no clubbing, cyanosis or edema Assessment & Plan Assessment & Plan (1) Breast pain: Code(s): N64.4 - Mastodynia Category: Medical Plan 59-year-old female patient presenting for evaluation of left breast pain. This has been present for several years in his generally in the upper outer quadrant. Workup with mammogram and ultrasound on 08/01/2024 revealed no mammographic or sonographic evidence of malignancy (BI-RADS 1). Examination today revealed mild fibrocystic changes in the upper outer quadrant but no significant palpable mass, skin change, nipple discharge or enlarged lymph nodes. No surgical intervention is recommended at this time. I would recommend routine follow-up with annual mammograms and clinical breast examinations. She should follow up as needed. Coding Level of Care Code New Pt Level 4 (80245) Diagnoses Breast pain N64.4
[2024-12-12 09:27] VITALS: BP 122/60; PULSE 66; BMI 33.5
--- OUTSIDE RECORDS SUMMARY | 2024-12-12 10:14 | XMS_ITS | Data Portability ---
Author Organization [place] [facility] Jodie Mcclelland AONE [place] Address [address] [place] [address] Assessment Encounter Date Assessment Date Assessment LastModified [...] scheduled for left total knee arthroplasty at [facility]. They have significant joint pain, dysfunction [...] Das MS, PA-C in indirect conjunction with [facility] provider Abdi Oneal MD. He agrees with [...] Das MS, PA-C in indirect conjunction with [facility] provider Abdi Oneal MD. He agrees with [...] pain relief in the knee and satisfactory roman catholic of function in terms of activities of [...] total knee arthroplasty. Continue knee conditioning exercises. Oytu-gps-mgwmlau medications as needed. Ultimate failure may occur [...] injection for flexor tendiniti s next to BENJAMIN. CORTIOSON E INJECTION 2024 025 [facility], [address], [place], [address], 12/11/2024 14:14:03 Surgeries None recorded. Imaging XR, knee, 3 view 2024 025 [email or web address] [facility], [address], [place], [address], 11/07/2024 15:07:39 XR, knee, 3 view 2023 024 [email or web address] [facility], [address], [place], [address], 09/05/2024 10:32:38 Medication Orders meloxicam 15 mg tablet 2023 025 [facility]/Pharmacy #[id number], [address] [place], [address], 11/07/2024 15:26:35 hydrocodo ne 5 mg-acetam inophen 325 mg tablet 2023 024 [email or web address] [facility]/Pharmacy #[id number], [address] [place], [address], 07/25/2024 09:21:26 hydroxyzi ne HCl 25 mg tablet 2023 024 [facility]/Pharmacy #[id number], [address] [place], [address], 07/25/2024 09:22:12 Patient TargetsNo targets recorded. Patient Instructions Encounter Date Encounter Id Patient Instructions Last Modified By Organization Details Last Modified Time 07/03/2024 [id number] physical therapy * - Diagnosis: Status post left-sided total knee arthroplasty Evaluate and treat as indicated to reduce pain and to improve strength, mobility, stability, range of motion, and function. Please teach a home exercise plan and incorporate PT into patient's exercise routine. 2-3 sessions weekly for 6-8 weeks. [email or web address] Not available 07/10/2024 11:45:55 09/05/2024 21236 AP, lateral, and patellar radiographs of the left knee taken today demonstrate satisfactory position and alignment of components following left total knee replacement. Not available 09/05/2024 09:42:16 11/07/2024 307351 AP, lateral, and patellar radiographs of the [...] observ ation record ed. [email or web address] [facility] [address], [address], 05/21/2024 18:52:08 Result Notes None recorded. Problems Name Problem SNOMED Code Status Onset Date Resolution Date Notes Provider Name and Address Organization Details Recorded Time Osteoarthri tis of left knee joint 4397799083823 09 Active 2023 Abdi Oneal MD [address], [place], [address], [place] [facility], P 4 12:04:55 Disorder of hip 301374964 Active [address], [place], [address], [place] [facility], P 4 12:05:16 History of total knee arthroplast y 9956782219221 Active 2023 JERONIMO DAS PA-C [address] [facility], [place], [address], [place] [facility], P 4 09:52:43 Tendinitis of hip 440447994 Active 2024 Abdi Oneal MD [address] [facility],[address], [place], [address], [place] [facility], P 5 15:06:42 Problem Notes None recorded. Procedures Surgical History Date Name Laterality Status Provider Name and Address Organization Details Recorded Time 06/17/20 TOTAL KNEE ARTHROPLASTY (SURG) completed Geeta Dubon [facility] 06/18/2024 09:01:58 Imaging Results Imaging Date Name Status LastModified by Organiz ation Details LastModified Time 05/21/2024 CT, knee, w/o contrast completed [email or web address] [facility] [address], [place], [address], 05/21/2024 18:52:08 Procedure Notes None recorded. Medical Equipment None Reported. Allergies Allergen ID Allergen Name Allergen Category Reaction Reaction Severity Criticality Documentation Date Start Date Code Code System Note Provider Name and Address Organization Details Recorded Time 62895 Augmentin medicatio n Not available Not available Not available 07/25/2024 75152 2 RxNorm Caryl Ficarra null, [place] [facility], P 4 09:20:39 21198 penicilla mine medicatio n Not available Not available Not available 07/25/2024 7975 RxNorm Caryl Ficarra null, [place] [facility], P 4 09:20:48 88463 methocarb lauren medicatio n Not available Not available Not available 07/25/2024 6845 RxNorm Caryl Ficarra null, [place] [facility], P 4 09:20:59 Medications Name Sig Start [...] Updated DateTime 09/05/2024 156.21 cm 31.8 kg/m2 00395.3 g Caryl Rey [facility], P 09/05/2024 09:19:33 Date Recorded Body height Provider Name an d Address Organization Details Last Updated DateTime 11/07/2024 156[address] [place] [facility], P 11/07/2024 14:48:49 Social History None recorded. Functional Status None recorded. Mental Status None recorded. Family History Nothing Reported. Medical History No medical history recorded. Gynecological HistoryNo gynecological history recorded. Obstetrics History GPAL:G 0 P 0 0 0 0 Past Encounters Encounter ID Performer Location Encounter Start Date Encounter Closed Date Diagnosis/Indication Diagnosis SNOMED-CT Code Diagnosis ICD10 Code Diagnosis Note [id number] MD AYLA Espinoza [address] [address] 12/21/2023 11:22:20 12/21/2023 12:04:22 Pain in right hip joint 9980819285 41747 M25.551 Pain of le ft knee region 1773055342 47054 M25.562 Additional diagnosis detail: Left knee pain, unspecifie d chronicity Osteoarthr itis of left knee joint 3513840039 30596 M17.12 Additional diagnosis detail: Primary osteoarthr itis of left knee Disorder of hip 97696105 6 M24.551 Additional diagnosis detail: Right hip flexor tightness History of repair of hip joint 759036133 Z96.641 Additional diagnosis detail: Status post right hip replacemen t [id number] MD AYLA Espinoza [address] [address] 06/12/2024 11:38:30 06/12/2024 14:24:09 Osteoarthritis of left knee joint 3232993297 86658 M17.12 [id number] Mine [place] [address] [place] [address] 07/03/2024 09:21:59 07/03/2024 09:56:23 History of total knee arthroplasty 9427823151 105 Z96.652 [id number] MD AYLA Espinoza [address] [place] [address] 07/25/2024 09:12:37 07/25/2024 09:36:18 History of total knee arthroplasty 5352129188 105 Z96.652 [id number] MD AYLA Espinoza [address] [place] [address] 09/05/2024 09:13:45 09/05/2024 09:39:55 History of operative procedure on knee 684033472 Z96.652 Surgical follow-up 06057 4000 Z47.1 Z96.652 [id number] MD AYLA Espinoza [facility] [address] [facility] [address] [place] [address] 11/07/2024 14:38:52 11/07/2024 15:07:39 History of left total knee replacement 0080252646 750371 Z96.652 Tendinitis of hip 722452 006 M76.891 Surgical follow-up 89237 4000 Z47.1 Z96.652 Health Concerns Section Related Observation LastModified by Organization Detai ls LastModified Time None Recorded Concern Status LastModified by Organization Details LastModified Time None Recorded Advance Directives Directive None Recorded Payers Encounter Date Sequence Insurance Name Policy Number Policy Santana Covered Member ID Santana Member ID Guarantor Name 06/12/2024 1 [facility] [id number] Hollis Mak [id number] 2 Kindra Mak 07/03/2024 1 [facility] [id number] Hollis Mak [id number] 2 Kindra Mak 07/25/2024 1 [facility] [id number] Hollis Mak [id number] 2 Kindra Mak 09/05/2024 1 [facility] [id number] Hollis Mak [id number] 2 Kindra Mak 11/07/2024 1 [facility] [id number] Hollis Mak [id number] 2 Kindra Mak OBGyn Episode No OBEpisode recorded.
--- OUTSIDE RECORDS SUMMARY | 2024-12-12 10:14 | XMS_ITS | Clinical Summary ---
Author Organization [facility] Address [address] [place] [address] Care Team Providers Care Musculoskeletal Physician Name Role Phone MariTanvir hernandez J Primary Care Provider [phone] Allergies Active Allergy Reactions Criticality Noted Date [...] age to complete this topic Care Teams Musculoskeletal Physician Relationship Specialty Start Date End Date Tanvir Garsia [address] [facility] [place] [id number] PCP - General Family Medicine 06/02/24
--- OUTSIDE RECORDS SUMMARY | 2024-12-12 10:14 | XMS_ITS | Continuity of Care Document ---
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 Tobacco Use Start: Unknown Never Smoked Cigarettes ETOH Use Rarely consumed liquor in e past Allergies and adverse reactions Active Allergies Criticality Reaction Severity Comments Date Amoxicillin Unable to assess criticality Anaphylaxis Severe 09/03/2023 Augmentin Unable to assess criticality Severe 09/03/2023 Penicillin Unable to assess criticality Severe 09/03/2023 Medications Active Medications SIG Qnty Indications Ordering Provider Date Citalopram Vdzmsomrdghl79po Tablets Take 1 Tablet By Mouth Every Day Tanvir Garsia Albuterol Sulfate EZJ535(90Base) mcg/Act Aerosol Kang Andrews MD Vital Signs Date Vital Result Comment 12/03/2024 9:12am BP Systolic 130 mmHg BP Diastolic 80 mmHg Heart Rate 69 /min Height 61 inches 5'1 Weight 184.50 lb BMI (Body Mass Index) 34.9 kg/m2 Results Test Acquired Date Facility Test Result H/L Range N ote TSH Rfx on Abnormal to Free T4 12/03/2024 [facility] TSH Rfx on Abnormal to Free T4 1.650 uIU/mL 0.450-4.500 Medical Devices Description No Information Available Encounters Type Date Location Provider Dx Diagnosis Office Visit 12/03/2024 9:15a Main Office GABBY Aguilar 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
--- OUTSIDE RECORDS SUMMARY | 2024-12-12 10:14 | XMS_ITS ---
Author Organization [facility] Address [address] [address] Care Team Providers Care Chairman Emeritus Name Role Phone Tanvir Garsia Primary Care Provider ELVIRA Mccullough Unavailable [phone] REASON FOR VISIT Lab Results Encounters Encounter Location Date Provider Diagnosis [facility] [address] [address] 06/18/2023 ELVIRA JOHNSTON Plan Of Treatment No Information Progress Notes * Danelle MAKOB: 6 (57 yo F)Acc No.[id number]:06/18/2023 Patient:?Obdulio Kindra :1965???Age:57 Y???Sex:Female Address:[address] [place] [address] * true * Date:? Generated for Cameron manuel/Logan/eTransmitting on:?12/12/2024 10:13 AM EDT
--- OUTSIDE RECORDS SUMMARY | 2024-12-12 10:14 | XMS_ITS | Patient Health Record ---
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
== END 2024-12-12 09:52 | disposition home or self-care (01) ==
LOC: HO.HGS 09:14
PROVIDERS: PCP Nurse Practitioner Family; Referring Provider Advanced Practice Midwife; Visit Provider Surgery
DX: N64.4 Mastodynia (principal)
CPT/HCPCS: 99204

== ENCOUNTER 2025-01-27 07:58 | Outpatient (AMB) | payer OTHER, SELFPAY ==
--- OUTSIDE RECORDS SUMMARY | 2025-01-27 08:00 | XMS_ITS | Continuity of Care Document ---
Author Organization [facility] Address [address] [facility] [address] [place] [address] Phone [phone] Care Team Providers Care Remelt Pan Tank Operator Name Role Phone Tanvir Garsia Care Team Information Lactation Specialist [phone] Problems Active Problems Provider Date Vitamin B12 deficiency (non anaemic) GABBY Leiva Onset: 09/03/2023 Thyroid nodule GABBY Aguilar Onset: 2022 H/O: depression GABBY Aguilar Onset: 2022 Anxiety GABBY Aguilar Onset: 2022 Social History Type Date Description Comments Sex Unknown Lives With Spouse 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 Tobacco Use Start: Unknown Never Smoked Cigarettes ETOH Use Rarely consumed liquor in e past Allergies and adverse reactions Active Allergies Criticality Reaction Severity Comments Date Amoxicillin Unable to assess criticality Anaphylaxis Severe 09/03/2023 Augmentin Unable to assess criticality Severe 09/03/2023 Penicillin Unable to assess criticality Severe 09/03/2023 Medications Active Medications SIG Qnty Indications Ordering Provider Date Citalopram Fcajwomkoxbu07ul Tablets Take 1 Tablet By Mouth Every Day Tanvir Garsia Albuterol Sulfate RJL636(90Base) mcg/Act Aerosol Kang Andrews MD Vital Signs [...] GABBY Aguilar Plan of Treatment Future Appointment(s):* 01/13/2026 10:30 am - GABBY Aguilar at Main Office 12/03/2024 - GABBY Aguilar* E04.2 Nontoxic multinodular goiter* New Xrays: * Ultrasound Thyroid, Scheduled: 12/30/24 Functional Status Description No Information Available Mental Status Description No Information Available Referrals Description No Information Available
--- OUTSIDE RECORDS SUMMARY | 2025-01-27 08:00 | XMS_ITS | Clinical Summary ---
Author Organization [facility] Address [address] [place] [address] Care Team Providers Care Bearing Grinder Name Role Phone MariTanvir hernandez J Primary Care Provider [phone] Allergies Active Allergy Reactions Criticality Noted Date [...] age to complete this topic Care Teams Bearing Grinder Relationship Specialty Start Date End Date Tanvir Garsia [address] [facility] [place] [id number] PCP - General Family Medicine 06/02/24
--- OUTSIDE RECORDS SUMMARY | 2025-01-27 08:01 | XMS_ITS | Data Portability ---
Author Organization [place] [facility] Jodie Mcclelland AONE [place] Address [address] [place] [address] Assessment Encounter Date Assessment Date Assessment LastModified [...] scheduled for left total knee arthroplasty at [facility]. They have significant joint pain, dysfunction [...] patient was seen and evaluated by Jeronimo Chase MS, PA-C in indirect conjunction with [facility] provider Abdi Oneal MD. He [...] patient was seen and evaluated by Jeronimo Chase MS, PA-C in indirect conjunction with [facility] provider Abdi Oneal MD. He [...] pain relief in the knee and satisfactory jew of function in terms of activities of [...] total knee arthroplasty. Continue knee conditioning exercises. Byrg-hhn-ldvdgxg medications as needed. Ultimate failure may occur [...] to BENJAMIN. CORTIOSON E INJECTION 2024 025 [email or web address] [facility], [address], [place], [address], 12/18/2024 08:44:20 Surgeries None recorded. Imaging XR, knee, 3 view 2024 025 [email or web address] [facility], [address], [place], [address], 11/07/2024 15:07:39 XR, knee, 3 view 2023 024 [email or web address] [facility], [address], [place], [address], 09/05/2024 10:32:38 Medication Orders meloxicam [address] [facility]/Pharmacy #[id number], [address], [place], [address], 11/07/2024 15:26:35 hydrocodo ne 5 mg-acetam inophen 325 mg tablet 2023 024 [email or web address] [facility]/Pharmacy #[id number], [address] [place], [address], 07/25/2024 09:21:26 hydroxyzi ne HCl 25 mg tablet [address] [facility]/Pharmacy #[id number], [address] [place], [address], 07/25/2024 09:22:12 Patient TargetsNo targets recorded. Patient Instructions Encounter Date Encounter Id Patient Instructions Last Modified By Organization Details Last Modified Time 07/03/2024 [id number] physical therapy * - Diagnosis: Status post left-sided total knee arthroplasty Evaluate and treat as indicated to reduce pain and to improve strength, mobility, stability, range of motion, and function. Please teach a home exercise plan and incorporate PT into patient's exercise routine. 2-3 sessions weekly for 6-8 weeks. [email or web address] Not available 07/10/2024 11:45:55 09/05/2024 53956 AP, lateral, and patellar radiographs of the left knee taken today demonstrate satisfactory position and alignment of components following left total knee replacement. Not available 09/05/2024 09:42:16 11/07/2024 932288 AP, lateral, and patellar radiographs of the [...] ation record ed. [email or web address] [facility] [address], [address], 05/21/2024 18:52:08 Result Notes None recorded. Problems Name Problem SNOMED Code Status Onset Date Resolution Date Notes Provider Name and Address Organization Details Recorded Time Osteoarthri tis of left knee joint 7461794690096 09 Active [address], [place], [address], [place] [facility] [place] [facility], P 4 12:04:55 Disorder of hip 534284986 Active [address], [place], [address], [place] [facility], P 4 12:05:16 History of total knee arthroplast y 1173789577930 Active 2023 JERONIMO CHASE PA-C [address] [facility],[address], [place], [address], [place] [facility], P 4 09:52:43 Tendinitis of hip 340421141 Active 2024 Abdi Oneal MD [address] [facility],[address], [place], [address], [place] [facility], P 5 15:06:42 Problem Notes None recorded. Procedures Surgical History Date Name Laterality Status Provider Name and Address Organization Details Recorded Time 06/17/20 TOTAL KNEE ARTHROPLASTY (SURG) completed Geeta Dubon [facility] 06/18/2024 09:01:58 Imaging Results Imaging Date Name Status LastModified by Organiz ation Details LastModified Time 05/21/2024 CT, knee, w/o contrast completed [email or web address] [facility] [address] [facility] [address], [place], [address], 05/21/2024 18:52:08 Procedure Notes None recorded. Medical Equipment None Reported. Allergies Allergen ID Allergen Name Allergen Category Reaction Reaction Severity Criticality Documentation Date Start Date Code Code System Note Provider Name and Address Organization Details Recorded Time 86928 Augmentin medicatio n Not available Not available Not available 07/25/2024 60073 2 RxNorm Caryl Ficarra null, [place] [facility] [place] [facility], P 4 09:20:39 85470 penicilla mine medicatio n Not available Not available Not available 07/25/2024 7975 RxNorm Caryl Ficarra null, [place] [facility], P 4 09:20:48 52104 methocarb lauren medicatio n Not available Not available Not available 07/25/2024 6845 RxNorm Caryl Ficarra null, [place] [facility], P 4 09:20:59 Medications Name Sig Start [...] Updated DateTime 09/05/2024 156.21 cm 31.8 kg/m2 91151.3 [facility] 09/05/2024 09:19:33 Date Recorded Body height Provider Name an d Address Organization Details Last Updated DateTime 11/07/2024 156.21 [facility], [facility] 11/07/2024 14:48:49 Social History None recorded. Functional Status None recorded. Mental Status None recorded. Family History Nothing Reported. Medical History No medical history recorded. Gynecological HistoryNo gynecological history recorded. Obstetrics History GPAL:G 0 P 0 0 0 0 Past Encounters Encounter ID Performer Location Encounter Start Date Encounter Closed Date Diagnosis/Indication Diagnosis SNOMED-CT Code Diagnosis ICD10 Code Diagnosis Note [id number] MD AYLA Espinoza [address] [address] 12/21/2023 11:22:20 12/21/2023 12:04:22 Pain of right hip joint 2224902643 65158 M25.551 Pain of le ft knee region 2494726863 54677 M25.562 Additional diagnosis detail: Left knee pain, unspecifie d chronicity Osteoarthr itis of left knee joint 5532007674 13598 M17.12 Additional diagnosis detail: Primary osteoarthr itis of left knee Disorder of hip 09075780 6 M24.551 Additional diagnosis detail: Right hip flexor tightness History of repair of hip joint 971312726 Z96.641 Additional diagnosis detail: Status post right hip [place]acemen t [id number] CHELSY SHEFFIELD [place] [address] [address] 06/12/2024 11:38:30 06/12/2024 14:24:09 Osteoarthritis of left knee joint 0282111209 78254 M17.12 [id number] CHELSY SHEFFIELD [address] [place] [address] 07/03/2024 09:21:59 07/03/2024 09:56:23 History of total knee arthroplasty 8584601418 105 Z96.652 [id number] MD AYLA Espinoza [address] [place] [address] 07/25/2024 09:12:37 07/25/2024 09:36:18 History of total knee arthroplasty 5007553781 105 Z96.652 [id number] MD AYLA Espinoza [address] [place] [address] 09/05/2024 09:13:45 09/05/2024 09:39:55 History of operative procedure on knee 905549562 Z96.652 Surgical follow-up 06276 4000 Z47.1 Z96.652 [id number] MD AYLA Espinozasunshine [place] [address] [facility] [address] [place] [address] 11/07/2024 14:38:52 11/07/2024 15:07:39 History of left total knee replacement 0369302442 410483 Z96.652 Tendinitis of hip 903644 006 M76.891 Surgical follow-up 64875 4000 Z47.1 Z96.652 Health Concerns Section Related Observation LastModified by Organization Detai ls LastModified Time None Recorded Concern Status LastModified by Organization Details LastModified Time None Recorded Advance Directives Directive None Recorded Payers Encounter Date Sequence Insurance Name Policy Number Policy Santana Covered Member ID Santana Member ID Guarantor Name 06/12/2024 1 [facility] [id number] Hollis Mak [id number] 2 Kindra Mak 07/03/2024 1 [facility] [id number] Hollis Mak [id number] 2 Kindra Mak 07/25/2024 1 [facility] [id number] Hollis Mak [id number] 2 Kindra Mak 09/05/2024 1 [facility] [id number] Hollis Mak [id number] 2 Kindra Mak 11/07/2024 1 [facility] [id number] Hollis Mak [id number] 2 Kindra Mak OBGyn Episode No OBEpisode recorded.
--- OUTSIDE RECORDS SUMMARY | 2025-01-27 08:01 | XMS_ITS | Patient Health Record ---
Author Organization [facility] Address 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
[2025-01-27 08:07] VITALS: BP 118/76; PULSE 63; TEMP 36.6; O2SAT 98
--- NOTE | 2025-01-27 08:07 | AM.OFFWIN_ITS ---
Intake Vital Signs 01/27/25 08:07 Weight 182 lb 6 oz BP 118/76 Blood Pressure Location Rt brachial Position Sitting Pulse 63 Pulse Source Pulse Oximeter Temp 97.9 F Temp Source Oral Pulse Oximetry (%) 98 Oxygen Delivery Method Room Air Intake Visit Reasons: EP sore throat, headache, pain on glands Intake Note: Patient here for sore throat, swollen glands and headache that started last night. Patient Tobacco Use Status: Never used Tobacco Allergies amoxicillin [From Augmentin] Allergy (Severe, Verified 01/27/25 08:12) Anaphylaxis clavulanic acid [From Augmentin] Allergy (Severe, Verified 01/27/25 08:12) Anaphylaxis Penicillins Allergy (Severe, Verified 01/27/25 08:12) Anaphylaxis methocarbamol Adverse Reaction (Verified 01/27/25 08:12) hives Do you need a note to return to daycare/school/sports/work: No HPI HPI Comments History of Present Illness Details This is a 59-year-old female with a past medical history of seasonal allergies presenting for evaluation of sore throat with swollen glands over the past 1 day. Patient also endorses having a headache. Patient denies having any fevers, chills, otalgia, difficulty swallowing, cough or shortness for breath. Patient has taken ibuprofen/Tylenol without relief of her discomfort. Patient takes Claritin and Flonase daily for management of her seasonal allergies. [facility] Medical History Breast pain Arthritis Surgical History History of knee replacement procedure of left knee History of endometrial ablation Hx of tonsillectomy History of carpal tunnel surgery History of cholecystectomy History of right hip replacement Family History Mother Hypertension Maternal Grandmother Colon cancer Social History Housing: House Patient Tobacco Use Status: Never used Tobacco e-Cigarette/Vaping Use: Never Used Second Hand Smoke Exposure: No service: No Current occupational status: employed Cognitive needs: No Hearing needs: No Vision needs: No Female Reproductive History Menstrual Age of Menarche: 13 Date of menopause: 09/24/14 Review of Systems Const All systems reviewed & are unremarkable except as noted in HPI and below Reports no additional complaints Eyes Reports no additional complaints ENT Reports as per HPI, Denies otalgia, Denies facial pain, Reports post nasal drip, Denies sinus pressure, Reports sore throat and Reports throat swelling Card Reports no additional complaints Resp Reports no additional complaints GI Reports no additional complaints Reports no additional complaints Musc Reports no additional complaints Skin/Breast Reports system reviewed and no additional complaints, except as documented Neuro Reports no additional complaints Psych Reports no additional complaints Endo Reports no additional complaints Amaury/Lymph Reports no additional complaints Aller/Immun Reports no additional complaints and Reports throat swelling Physical Exam Vital Signs: Last Vital Signs Temp 97.9 F 01/27/25 08:07 Pulse 63 01/27/25 08:07 BP 118/76 01/27/25 08:07 Pulse Ox 98 01/27/25 08:07 Oxygen Delivery Method Room Air 01/27/25 08:07 Const General: cooperative, healthy appearing, comfortable, no acute distress, well developed, alert and awake Nutritional Appearance: average body habitus Orientation/consciousness: patient oriented x3 Limitations: no limitations HEENT Head: Yes normal to inspection and Yes normocephalic Ears: hearing grossly normal bilaterally, external ears normal, TM's normal bilaterally and EAC's normal General nose exam: Normal external nose present Face and sinus: Yes normal facial exam and Yes sinuses nontender Mouth: Normal oral and palatal mucosa present and moist mucous membranes Throat: Yes posterior oropharynx normal (There is no edema, erythema or exudates of the posterior oropharynx.) and Yes postnasal drainage Eyes General: appearance normal, both eyes and all related structures Visual Shafer: normal visual shafer by confrontation Alignment and Position: alignment normal Periorbital: periorbital findings normal Eyelids: Yes eyelids normal Conjunctivae: conjunctivae normal Sclerae: sclerae normal Corneas: corneas normal Pupils: Equal, round and reactive pupils present EOM: EOMs intact bilaterally Direct Ophthalmoscopy: normal light reflex and no photophobia Neck Lymphatic: other (Scant anterior cervical lymphadenopathy R > L) Resp Effort & Inspection: normal respiratory effort, able to speak in complete sentences, abnormal respiratory pattern, no audible wheezes, no cough and decreased respiratory effort Auscultation: clear to auscultation bilaterally Cardio Rate: regular rate Rhythm: regular rhythm Skin General skin exam: no rashes or lesions noted Neuro General: patient oriented x3 Cranial nerves: Yes Equal, round and reactive pupils present Psych Appearance: grossly normal Mental Status: mental status grossly normal Insight: Good insight present (Psych) Judgement: Good judgement present (Psych) Results AMB Rapid Strep AMB Rapid Strep Negative Last Edit by ANGELA Camacho on 01/27/25 08:25 Results Reviewed Results Reviewed: Laboratory Last Values Strep Scn Rapid Clinic Negative 01/27/25 08:24 Assessment & Plan Assessment & Plan (1) Allergic rhinitis: Comment: Patient's rapid strep test is negative. There is no evidence of a bacterial pharyngitis or otitis media on examination. Code(s): J30.9 - Allergic rhinitis, unspecified Qualifiers: Allergic rhinitis trigger: pollen Allergic rhinitis seasonality: seasonal Qualified Code(s): J30.1 - Allergic rhinitis due to pollen Plan: Nasal saline rinse daily, continue Claritin and Flonase as before. Ibuprofen only as needed. Orders: Orders AMB Rapid Strep Screen Today Z13.9 - Encounter for screening, unspecified Coding Level of Care Code Est Pt Level 3 (85307) Diagnoses Seasonal allergic rhinitis due to pollen J30.1 Allergic rhinitis trigger: pollen Allergic rhinitis seasonality: seasonal Time Spent (min) 20
== END 2025-01-27 09:13 | disposition home or self-care (01) ==
PROVIDERS: PCP Nurse Practitioner Family; Visit Provider Physician Assistant
DX: Z13.9 Encounter for screening, unspecified (principal); J30.1 Allergic rhinitis due to pollen

== ENCOUNTER → 2025-01-27 07:58 | Outpatient (BNVA) | payer OTHER, SELFPAY | PROVIDERS: PCP Nurse Practitioner Family; Visit Provider Physician Assistant | DX: J30.1 Allergic rhinitis due to pollen (principal) | CPT/HCPCS: 87880 ==

== ENCOUNTER 2025-02-09 07:03 | Outpatient (AMB) | payer OTHER, SELFPAY ==
--- OUTSIDE RECORDS SUMMARY | 2025-02-09 07:06 | XMS_ITS | Patient Health Record ---
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
--- OUTSIDE RECORDS SUMMARY | 2025-02-09 07:06 | XMS_ITS | Clinical Summary ---
Author Organization [facility] Address [address] [place] [address] Care Team Providers Care Job Coach Name Role Phone MariTanvir hernandez J Primary Care Provider [phone] Allergies Active Allergy Reactions Criticality Noted Date [...] age to complete this topic Care Teams Job Coach Relationship Specialty Start Date End Date Tanvir Garsia [address] [facility] [place] [id number] PCP - General Family Medicine 06/02/24
--- OUTSIDE RECORDS SUMMARY | 2025-02-09 07:06 | XMS_ITS | Continuity of Care Document ---
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 Tobacco Use Start: Unknown Never Smoked Cigarettes ETOH Use Rarely consumed liquor in e past Allergies and adverse reactions Active Allergies Criticality Reaction Severity Comments Date Amoxicillin Unable to assess criticality Anaphylaxis Severe 09/03/2023 Augmentin Unable to assess criticality Severe 09/03/2023 Penicillin Unable to assess criticality Severe 09/03/2023 Medications Active Medications SIG Qnty Indications Ordering Provider Date Citalopram [id number] Tablets Take 1 Tablet By Mouth Every Day Tanvir Garsia Albuterol Sulfate ZFK168(90Base) mcg/Act Aerosol Kang Andrews MD Vital Signs [...]
--- OUTSIDE RECORDS SUMMARY | 2025-02-09 07:06 | XMS_ITS | Data Portability ---
Author Organization [facility] Jodie Mcclelland AONE Schlater Address [address] [place] [address] Assessment Encounter Date Assessment Date Assessment LastModified [...] scheduled for left total knee arthroplasty at [facility]. They have significant joint pain, dysfunction and [...] Chase MS, PA-C in indirect conjunction with [facility] provider Abdi Oneal MD. He agrees [...] Chase MS, PA-C in indirect conjunction with [facility] provider Abdi Oneal MD. He agrees [...] pain relief in the knee and satisfactory sabianism of function in terms of activities of [...] total knee arthroplasty. Continue knee conditioning exercises. Rkuu-gpi-tficpxe medications as needed. Ultimate failure may occur [...] BENJAMIN. CORTIOSON E INJECTION 2024 025 [email or web address] [facility], [address], [place], [address], 12/18/2024 08:44:20 Surgeries None recorded. Imaging XR, knee, 3 view 2024 025 [email or web address] [facility], [address], [place], [address], 11/07/2024 15:07:39 XR, knee, 3 view 2023 024 [email or web address] [facility], [address], [place], [address], 09/05/2024 10:32:38 Medication Orders meloxicam 15 mg tablet 2023 025 [id number], [address], [place], [address], 11/07/2024 15:26:35 hydrocodo ne 5 mg-acetam inophen 325 mg tablet [email or web address] [facility] #[id number], [address] [place], [address], 07/25/2024 09:21:26 hydroxyzi ne HCl 25 mg tablet 2023 024 [id number], [address] [place], [address], 07/25/2024 09:22:12 Patient TargetsNo targets recorded. Patient Instructions Encounter Date Encounter Id Patient Instructions Last Modified By Organization Details Last Modified Time 07/03/2024 [id number] physical therapy * - Diagnosis: Status post left-sided total knee arthroplasty Evaluate and treat as indicated to reduce pain and to improve strength, mobility, stability, range of motion, and function. Please teach a home exercise plan and incorporate PT into patient's exercise routine. 2-3 sessions weekly for 6-8 weeks. [email or web address] Not available 07/10/2024 11:45:55 09/05/2024 [id number] AP, lateral, and patellar radiographs of the left knee taken today demonstrate satisfactory position and alignment of components following left total knee replacement. Not available 09/05/2024 09:42:16 11/07/2024 [id number] AP, lateral, and patellar radiographs of the [...] ation record ed. [email or web address] [facility] [address], [address], 05/21/2024 18:52:08 Result Notes None recorded. Problems Name Problem SNOMED Code Status Onset Date Resolution Date Notes Provider Name and Address Organization Details Recorded Time Osteoarthri tis of left knee joint 7569529182674 09 Active [address], [place], [address], [place] [facility], [facility] 4 12:04:55 Disorder of hip 114790656 Active [address], [place], [address], [place] [facility], [facility] 4 12:05:16 History of total knee arthroplast y 9733414352301 Active 2023 JERONIMO CHASE PA-C [address], [place], [address], [place] [facility], P 4 09:52:43 Tendinitis of hip 431093450 Active 2024 Abdi Oneal MD [address], [place], [address], [place] [facility], P 5 15:06:42 Problem Notes None recorded. Procedures Surgical History Date Name Laterality Status Provider Name and Address Organization Details Recorded Time 06/17/20 TOTAL KNEE ARTHROPLASTY (SURG) completed Geeta Dubon [facility] 06/18/2024 09:01:58 Imaging Results Imaging Date Name Status LastModified by Organiz ation Details LastModified Time 05/21/2024 CT, knee, w/o contrast completed [email or web address] [facility] [address] [facility] [address], [place], [address], 05/21/2024 18:52:08 Procedure Notes None recorded. Medical Equipment None Reported. Allergies Allergen ID Allergen Name Allergen Category Reaction Reaction Severity Criticality Documentation Date Start Date Code Code System Note Provider Name and Address Organization Details Recorded Time 86798 Augmentin medicatio n Not available Not available Not available 07/25/2024 15900 2 RxNorm Caryl Ficarra null, [place] [facility], P 4 09:20:39 98850 penicilla mine medicatio n Not available Not available Not available 07/25/2024 7975 RxNorm Caryl Ficarra null, [place] [facility], P 4 09:20:48 20594 methocarb lauren medicatio n Not available Not available Not available 07/25/2024 6845 RxNorm Caryl Ficarra null, [place] [facility], P 4 09:20:59 Medications Name Sig Start [...] Updated DateTime 09/05/2024 156.21 cm 31.8 kg/m2 02498.3 g [facility] 09/05/2024 09:19:33 Date Recorded Body height Provider Name an d Address Organization Details Last Updated DateTime 11/07/2024 156.21 cm [facility] 11/07/2024 14:48:49 Social History None recorded. Functional Status None recorded. Mental Status None recorded. Family History Nothing Reported. Medical History No medical history recorded. Gynecological HistoryNo gynecological history recorded. Obstetrics History GPAL:G 0 P 0 0 0 0 Past Encounters Encounter ID Performer Location Encounter Start Date Encounter Closed Date Diagnosis/Indication Diagnosis SNOMED-CT Code Diagnosis ICD10 Code Diagnosis Note [id number] MD AYLA Espinoza [address] [address] 12/21/2023 11:22:20 12/21/2023 12:04:22 Pain of right hip joint 3103776978 52052 M25.551 Pain of le ft knee region 9261614393 95705 M25.562 Additional diagnosis detail: Left knee pain, unspecifie d chronicity Osteoarthr itis of left knee joint 4160563002 91587 M17.12 Additional diagnosis detail: Primary osteoarthr itis of left knee Disorder of hip 67973560 6 M24.551 Additional diagnosis detail: Right hip flexor tightness History of repair of hip joint 171396020 Z96.641 Additional diagnosis detail: [place] [id number] CHELSY [place] [address] [address] 06/12/2024 11:38:30 06/12/2024 14:24:09 Osteoarthritis of left knee joint 4679283304 72215 M17.12 [id number] CHELSY SHEFFIELD [address] [place] [address] 07/03/2024 09:21:59 07/03/2024 09:56:23 History of total knee arthroplasty 0422981496 105 Z96.652 [id number] MD AYLA Espinoza [address] [place] [address] 07/25/2024 09:12:37 07/25/2024 09:36:18 History of total knee arthroplasty 8275015612 105 Z96.652 [id number] MD AYLA Espinoza [address] [place] [address] 09/05/2024 09:13:45 09/05/2024 09:39:55 History of operative procedure on knee 217108097 Z96.652 Surgical follow-up 30794 4000 Z47.1 Z96.652 [id number] MD AYLA Espinozasunshine [place] [address] [facility] [address] [place] [address] 11/07/2024 14:38:52 11/07/2024 15:07:39 History of left total knee replacement 5219350659 728904 Z96.652 Tendinitis of hip 138357 006 M76.891 Surgical follow-up 66640 4000 Z47.1 Z96.652 Health Concerns Section Related Observation LastModified by Organization Detai ls LastModified Time None Recorded Concern Status LastModified by Organization Details LastModified Time None Recorded Advance Directives Directive None Recorded Payers Encounter Date Sequence Insurance Name Policy Number Policy Santana Covered Member ID Santana Member ID Guarantor Name 06/12/2024 1 [facility] [id number] Hollis Mak [id number] 2 Kindra Mak 07/03/2024 1 [facility] [id number] Hollis Mak [id number] 2 Kindra Mak 07/25/2024 1 [facility] [id number] Hollis Mak [id number] 2 Kindra Mak 09/05/2024 1 [facility] [id number] Hollis Mak [id number] 2 Kindra Mak 11/07/2024 1 [facility] [id number] Hollis Mak [id number] 2 Kindra Mak OBGyn Episode No OBEpisode recorded.
--- NOTE | 2025-02-09 07:23 | A.OFFPC_ITS ---
Intake Visit Reasons: EP F/U Allergies amoxicillin [From Augmentin] Allergy (Severe, Verified 02/09/25 07:23) Anaphylaxis clavulanic acid [From Augmentin] Allergy (Severe, Verified 02/09/25 07:23) Anaphylaxis Penicillins Allergy (Severe, Verified 02/09/25 07:23) Anaphylaxis methocarbamol Adverse Reaction (Verified 02/09/25 07:23) hives Medication List - Last Reconciled 02/09/25 by GABBY SalmonP- albuterol sulfate 90 mcg/actuation 1 inh inhalation QID PRN citalopram 20 mg PO DAILY fluticasone propionate 50 mcg/actuation (Allergy Relief (fluticasone)) 1 spray intranasal DAILY loratadine (Claritin) 10 mg PO DAILY mometasone (Asmanex Twisthaler) 1 inh inhalation DAILY multivitamin 1 tab PO DAILY Tobacco use date assessed: 07/23/24 Dental Screening Dental Screen Date: 07/23/24 HPI EP F/U HPI Details History of Present Illness The patient is a 59-year-old female presenting for a generalized follow-up v isit. She reports doing well overall, having recently addressed symptoms of allergic rhinitis at a walk-in consultation. She commenced treatment with Flonase and cetirizine (Zyrtec) and notes improvements in her condition. In the context of her dyslipidemia, her LDL cholesterol level was recently measured at 118 mg/dL. We discussed dietary modifications as a non-pharmacologic strategy and plan to reassess her lipid levels in the fall. If necessary, we may initiate treatment with a statin or an alternative lipid-lowering medication, depending on health status and lab results. She denies chest pain, shortness of breath, headaches, or dizziness. Review of Systems - Respiratory: Denies shortness of breat h. - Cardiovascular: Denies chest pain. - Neurological: Denies headache, dizzine ss. - Allergic/Immunologic: Reports improvem ent in allergy symptoms following treatment with Flonase and cetirizine. Plan We are addressing the patient's allergic rhinitis with Flonase and cetirizine an d she reports improvement. The patient continues dietary modifications for dyslipidemia management, with plans to reassess her lipid profile in the fall. Consideration for beginning a statin or non-statin medication is contingent on future lab results. Discussion Notes We had a thorough discussion regarding the management of the patient's allergic rhinitis with current medications and her improvement on this regimen. For dyslipidemia, we discussed ongoing dietary adjustments and the possibility of initiating pharmacotherapy if future LDL cholesterol levels advise it. I reinforced the significance of these changes in managing cardiovascular risk, emphasizing that further interventions, including medication, would be based on future assessments. Follow-up guidance involves reevaluation of lipid levels in the fall, with precautions for new symptoms requiring earlier attention. Patient Instructions - Continue taking Flonase and cetirizine as prescribed. - Follow dietary suggestions to help man age cholesterol levels. - Watch for any new symptoms like breath ing problems, chest pain, headaches, or dizziness. - Plan to check your cholesterol levels in the fall or sooner if new symptoms arise. - Call me if you have any questions or c oncerns. [facility] Medical History Breast pain Arthritis Surgical History History of knee replacement procedure of left knee History of endometrial ablation Hx of tonsillectomy History of carpal tunnel surgery History of cholecystectomy History of right hip replacement Family History Mother Hypertension Maternal Grandmother Colon cancer Social History Housing: House Patient Tobacco Use Status: Never used Tobacco e-Cigarette/Vaping Use: Never Used Second Hand Smoke Exposure: No service: No Current occupational status: employed Cognitive needs: No Hearing needs: No Vision needs: No Female Reproductive History Menstrual Age of Menarche: 13 Date of menopause: 09/24/14 Questionnaire Thrive Questionnaire Date Thrive assessed: 07/09/24 I am a: Patient What is your living situation today?: I have a steady place to live Within the past 12 months, did the food you bought not last and you didn't have the money to get more?: Sometimes True Within the past 12 months, did you worry whether your food would run out before you got money to buy more?: Never true Do you have trouble paying for medicines?: No Do you have trouble getting transportation to medical appointments?: No Do you have trouble paying your heating and electricity bill?: No Do you have trouble taking care of your child, family member or friend?: No Do you have trouble with day-to-day activities such as bathing, preparing meals, shopping, managing finances, etc.?: No Are you currently unemployed and looking for a job?: No Are you interested in more education?: No Please select the resources that you would like help with: None Currently or been in a relationship where the following occur: No concerns reported THRIVE Score: 1 AUDIT C Alcohol Use Questionnaire (AUDIT-C) 2. How many drinks containing alcohol do you have on a typical day when you are drinking?: 1 or 2 3. How often do you have six or more drinks on one occasion?: Never Total Score: 0 ROSA MARIA-7 AMB Questionnaire ROSA MARIA-7 Date ROSA MARIA - 7 assessed: 07/16/24 Source: Developed by Drs. Sly Montes, Rosibel Craig, Kunal Jewell and colleagues, with an educational edgar from [employer]. Physical exam (Primary Care) Tobacco/Smoking Status: Tobacco use Status Tobacco use date assessed 07/23/24 11/25/24 12:20 Patient Tobacco Use Status Never used Tobacco 11/25/24 12:20 e-Cigarette/Vaping Use Never Used 11/25/24 12:20 Thrive Assessment: Date of Thrive Assessment Date Thrive assessed 07/09/24 12/05/24 12:55 Currently or been in a relationship where the following occur: No concerns reported Telehealth Telehealth Telehealth Platform: [facility] Location of provider rendering services: practice address Location of patient: address on file Patient Identification confirmed using: Name, : Yes Telehealth method: video Patient verbally consented to treatment: Yes Patient verbally consented to billing insurance company: Yes Patient informed of any privacy concerns related to visit: Yes Minutes spent on Phone/Video with Pt.: 10 Coding Level of Care Code Tele Est Pt Level 3 (91490) Diagnoses Seasonal allergic rhinitis due to pollen J30.1 Allergic rhinitis trigger: pollen Allergic rhinitis seasonality: seasonal Dyslipidemia E78.5 Assessment & Plan Assessment & Plan (1) Allergic rhinitis: Code(s): J30.9 - Allergic rhinitis, unspecified Category: Medical Qualifiers: Allergic rhinitis trigger: pollen Allergic rhinitis seasonality: seasonal Qualified Code(s): J30.1 - Allergic rhinitis due to pollen (2) Dyslipidemia: Code(s): E78.5 - Hyperlipidemia, unspecified Category: Medical Plan .
== END 2025-02-09 07:54 | disposition home or self-care (01) ==
LOC: HO.HMCC 07:03
PROVIDERS: PCP Nurse Practitioner Family; Visit Provider Nurse Practitioner Family
DX: J30.1 Allergic rhinitis due to pollen (principal); E78.5 Hyperlipidemia, unspecified

== ENCOUNTER → 2025-02-09 07:03 | Outpatient (BNVA) | payer OTHER, SELFPAY | PROVIDERS: PCP Nurse Practitioner Family; Visit Provider Nurse Practitioner Family ==

== ENCOUNTER 2025-07-30 09:08 | Outpatient (AMB) | payer OTHER, SELFPAY ==
[2025-07-30 09:21] VITALS: BP 114/78; PULSE 69; RESP 14; TEMP 36.7; O2SAT 96; BMI 33.6
--- NOTE | 2025-07-30 09:21 | A.OFFPC_ITS ---
Vital Signs 07/30/25 09:21 Height 5 ft 1.5 in Weight 181 lb BMI 33.6 BP 114/78 Blood Pressure Location Lt brachial Position Sitting Respiration 14 Pulse 69 Pulse Source Pulse Oximeter Temp 98.0 F Temp Source Oral Pulse Oximetry (%) 96 Oxygen Delivery Method Room Air Intake Visit Reasons: PE [employer] Interpreter Required: No Accompanied by: Self / Same As Patient Allergies amoxicillin (From Augmentin) Allergy (Severe, Verified 07/30/25 10:30) Anaphylaxis clavulanic acid (From Augmentin) Allergy (Severe, Verified 07/30/25 10:30) Anaphylaxis Penicillins Allergy (Severe, Verified 07/30/25 10:30) Anaphylaxis methocarbamol Adverse Reaction (Verified 07/30/25 10:30) hives Medication List - Last Reconciled 07/30/[address] [facility] albuterol sulfate 90 mcg/actuation 1 inh inhalation QID PRN citalopram 20 mg PO DAILY fluticasone propionate 50 mcg/actuation (Allergy Relief (fluticasone)) 1 spray intranasal DAILY loratadine (Claritin) 10 mg PO DAILY mometasone (Asmanex Twisthaler) 1 inh inhalation DAILY multivitamin 1 tab PO DAILY Tobacco use date assessed: 07/30/25 Dental Screening Dental Screen Date: 07/30/25 Did you have a dental visit in the last 12 months?: Yes Did you have a dental problem in the last 6 months where you did not have access to dental care?: No Was dental information given to patient?: Patient has dentist HPI PE HPI Details History of Present Illness The patient is a 59-year-old female presenting for a physical exam and to address multiple other complaints. 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 She also has ongoing anterior right shoulder pain. Additionally, she has extensive arthritis , reporting severe pain in the fingers of her right hand, which is now beginning to affect the left side (hand/fingers). The patient has ongoing left hip pain and has undergone two prior operations on it, believing an incorrectly sized cuff/socket was implanted. She also has pain to the dorsal aspect of her left foot and sees a welding equipment sales representative for this issue. Her main complaint is severe fatigue, stating she is exhausted all the time and is very busy. She experiences some constipation. Her health maintenance is up to date, including her mammogram and colon screening, and she has a HARVESTING SUPERVISOR provider. Health Maintenance - Mammogram: Up to date. - Colon screening: Up to date. - Gynecological care: Patient has a HARVESTING SUPERVISOR provider. Social History - Employment: Works as a [employer] t. - Level of activity: Reports being very busy. Review of Systems - Constitutional: Reports severe fatigue . - Denies fevers and chills. - Musculoskeletal: Reports pain in the r ight elbow, right shoulder, bilateral hands, left hip, and left foot. - Gastrointestinal: Reports some constip ation. - Denies nausea, vomiting, and diarrhea. - Psychiatric: Denies suicidal or homici sami ideation. Physical Exam General: Cooperative, healthy appearing, comfortable, no acute distress and well developed, but reports severe fatigue and exhaustion. Orientation: Patient oriented x3 Limitations: No limitations Head: Normal to inspection Ears: Hearing grossly normal bilaterally Nose: Normal external nose present Face and sinus: Normal facial exam Eyes: Appearance normal, both eyes and all related structures Neck: Normal visual inspection and Yes full ROM Respiratory: Normal respiratory effort and able to speak in complete sentences. Clear to auscultation bilaterally Cardiovascular: Regular rate and rhythm. Normal S1 and S2 GI: Normal to inspection. Soft to palpation and nontender Skin: No rashes or lesions noted Neuro: Patient oriented x3 Extremities: Moving bilateral extremities a lot. severe tenderness in the medial epicondyle region with arm extension and wrist flexion against resistance. Right shoulder pain mostly anterior, positive Job's test, negative Neer's and Larkin. Extensive arthritis and stenosis with severe hand pain, especially in the right fingers. Swelling noted in PIP joints, slightly weakened hand grasp on the right side, starting on the left. Left foot pain to the dorsal aspect. Results Plan 1. Right Medial Epicondylitis The patient will purchase a brace for her elbow. She may use NSAIDs and acetaminophen as needed for pain relief. 2. Right Shoulder Pain An X-ray of the right shoulder will be obtained. A referral will be placed to orthopedics for further evaluation. 3. Fatigue A referral will be made to sleep medicine for further evaluation. Additional laboratory studies will be ordered. 4. Left Foot Pain The patient was advised to follow up with her welding equipment sales representative for this issue. 5. osteoarthritis Discussion Notes I discussed my findings with the patient. For her right elbow pain, consistent with medial epicondylitis (golfer's elbow), I recommended she purchase a supportive brace and use [id number] NSAIDs and acetaminophen as needed. Regarding her ongoing right shoulder pain, I explained that given the positive Juwan's test, an X-ray is warranted, and I am referring her to an orthopedics specialist for further assessment. To address her main complaint of severe fatigue, I am arranging a referral to sleep medicine for an evaluation and will also order some additional lab tests to investigate further. We acknowledged her other chronic issues, including her hand, hip, and foot pain, and she will follow up with her welding equipment sales representative for her foot pain. Patient Instructions - Purchase a brace for your right elbow to help with the pain. - You can take [id number] medicati ons like NSAIDs (e.g., ibuprofen) and acetaminophen (e.g., Tylenol) as needed for your elbow pain. - Please get an X-ray of your right shou lder as we discussed. - We are referring you to an orthopedic (bone and joint) specialist for your shoulder pain and to a sleep medicine specialist for your fatigue. - We will be ordering some lab work for you; please go to the lab to have your blood drawn. - Continue to follow up with your podiat rist (foot doctor) for your left foot pain. [facility] Medical History Breast pain Arthritis Surgical History History of knee replacement procedure of left knee History of endometrial ablation Hx of tonsillectomy History of carpal tunnel surgery History of cholecystectomy History of right hip replacement Family History Mother Hypertension Maternal Grandmother Colon cancer Social History Housing: House Patient Tobacco Use Status: Never used Tobacco e-Cigarette/Vaping Use: Never Used Second Hand Smoke Exposure: No service: No Current occupational status: employed Cognitive needs: No Hearing needs: No Vision needs: No Female Reproductive History Menstrual Age of Menarche: 13 Date of menopause: 09/24/14 Questionnaire PHQ-9 Over the last 2 weeks, how often have you been bothered by any of the following problems? 1. Little interest or pleasure in doing things: not at all 2. Feeling down, depressed, or hopeless: not at all 3. Trouble falling or staying asleep, or sleeping too much: not at all 4. Feeling tired or having little energy: not at all 5. Poor appetite or overeating: not at all 6. Feeling bad about yourself - or that you are a failure or have let yourself or your family down: not at all 7. Trouble concentrating on things, such as reading the newspaper or watching television: not at all 8. Moving or speaking so slowly that other people could have noticed. Or the opposite - being so fidgety or restless that you have been moving around a lot more than usual: not at all 9. Thoughts that you would be better off or of hurting yourself in some way: not at all Total score: 0 Depression Screening Interpretation: Negative Depression Screening Done: Yes 97393 - PHQ-9 Billing: Patient declined-do not bill Source: Developed by Drs. Sly Montes, Rosibel Craig, Kunal Jewell and colleagues, with an educational edgar from [employer]. Thrive Questionnaire Date Thrive assessed: 07/23/25 I am a: Patient What is your living situation today?: I have a steady place to live Within the past 12 months, did the food you bought not last and you didn't have the money to get more?: Never true Within the past 12 months, did you worry whether your food would run out before you got money to buy more?: Never true Do you have trouble paying for medicines?: No Do you have trouble getting transportation to medical appointments?: No Do you have trouble paying your heating and electricity bill?: No Do you have trouble taking care of your child, family member or friend?: No Do you have trouble with day-to-day activities such as bathing, preparing meals, shopping, managing finances, etc.?: No Are you currently unemployed and looking for a job?: No Are you interested in more education?: No Please select the resources that you would like help with: None Currently or been in a relationship where the following occur: No concerns reported THRIVE Score: 0 AUDIT C Alcohol Use Questionnaire (AUDIT-C) 1. How often do you have a drink containing alcohol?: Monthly or less Total Score: 1 ROSA MARIA-7 AMB Questionnaire ROSA MARIA-7 Date ROSA MARIA - 7 assessed: 07/30/25 Feeling nervous, anxious, or on edge: 0 = Not at all Not being able to stop or control worryin = Not at all Worrying too much about different things: 0 = Not at all Trouble relaxin = Several days Being so restless that it is hard to sit still: 1 = Several days Becoming easily annoyed or irritable: 0 = Not at all Feeling afraid as if something awful might happen: 0 = Not at all Total ROSA MARIA-7 score (0-4 normal; 5-9 mild; 10-14 moderate; 15-21 severe): 2 Source: Developed by Drs. Sly Montes, Rosibel Craig, Kunal Jewell and colleagues, with an educational edgar from [employer]. ROSA MARIA-7 Assessment Billing ROSA MARIA-7 Assessment Tool: ROSA MARIA-7 Assessment 66236 Physical exam (Primary Care) Vital Signs: Last Vital Signs Temp 98.0 F 07/30/25 09:21 Pulse 69 07/30/25 09:21 Resp 14 07/30/25 09:21 BP 114/78 07/30/25 09:21 Pulse Ox 96 07/30/25 09:21 Oxygen Delivery Method Room Air 07/30/25 09:21 BMI result Body Mass Index 33.6 Tobacco/Smoking Status: Tobacco use Status Tobacco use date assessed 07/30/25 07/30/25 09:24 Patient Tobacco Use Status Never used Tobacco 07/30/25 09:24 e-Cigarette/Vaping Use Never Used 07/30/25 09:24 PHQ-9: PHQ-9 Score PHQ-9: Total score 0 07/30/25 09:24 Depression Screening Interpretation: Negative Thrive Assessment: Date of Thrive Assessment Date Thrive assessed 07/23/25 07/30/25 09:24 Currently or been in a relationship where the following occur: No concerns reported Coding Level of Care Code Est Pt Level 3 (80355) Est Pt Prev Care 40-64y(65438) Diagnoses Encounter for routine adult physical exam with abnormal findings Z00.01 Fatigue R53.83 Right shoulder pain M25.511 Additional Codes ROSA MARIA-7 Assessment Billing - ROSA MARIA-7 Assessment Tool: ROSA MARIA-7 Assessment 30761 ([id number]) Assessment & Plan Assessment & Plan (1) Encounter for routine adult physical exam with abnormal findings: Code(s): Z00.01 - Encounter for general adult medical examination with abnormal findings Category: Medical (2) Fatigue: Code(s): R53.83 - Other fatigue Category: Medical (3) Right shoulder pain: Code(s): M25.511 - Pain in right shoulder Category: Medical Plan . Orders: Orders Complete Blood Count Auto Diff Today Z00.01 - Encounter for general adult medical examination with abnormal findings UA CC w/rflx Micro + Cult Today Z00.01 - Encounter for general adult medical examination with abnormal findings Lipid Panel Today Z00.01 - Encounter for general adult medical examination with abnormal findings Erythrocyte Sedimentation Rate Today R53.83 - Other fatigue C Reactive Protein Today R53.83 - Other fatigue Vitamin B12 and Folate Today R53.83 - Other fatigue Rheumatoid Factor Today R53.83 - Other fatigue Comprehensive [place]. Panel Fast Today Z00.01 - Encounter for general adult medical examination with abnormal findings TSH reflex Free T4 Today Z00.01 - Encounter for general adult medical examination with abnormal findings RADHA Reflex Titer and Pattern Today R53.83 - Other fatigue Tick-borne Disease Molecular Today R53.83 - Other fatigue Lyme IgG/IgM w/reflex to WB Today R53.83 - Other fatigue IRON PROFILE Today R53.83 - Other fatigue Ferritin Today R53.83 - Other fatigue Sjogren's Antibodies Today R53.83 - Other fatigue XR shoulder RT min 2V Today M25.511 - Pain in right shoulder Cyclic Citrullinated Peptide Today R53.83 - Other fatigue Referrals Sleep Medicine Referral R53.83 - Other fatigue Orthopedics Referral M25.511 - Pain in right shoulder
--- OUTSIDE RECORDS SUMMARY | 2025-07-30 10:03 | XMS_ITS | Continuity of Care Document ---
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 Tobacco Use Start: Unknown Never Smoked Cigarettes ETOH Use Rarely consumed liquor in e past Allergies and adverse reactions Active Allergies Criticality Reaction Severity Comments Date Amoxicillin Unable to assess criticality Anaphylaxis Severe 09/03/2023 Augmentin Unable to assess criticality Severe 09/03/2023 Penicillin Unable to assess criticality Severe 09/03/2023 Medications Active Medications SIG Qnty Indications Ordering Provider Date Citalopram Prluciuotsly89ks Tablets Take 1 Tablet By Mouth Every Day Tanvir Garsia Albuterol Sulfate RGJ555(90Base) mcg/Act Aerosol Kang Andrews MD Vital Signs [...] multinodular goiter GABBY Aguilar Plan of Treatment 12/03/2024 - GABBY Aguilar* E04.2 Nontoxic multinodular goiter* New Xrays: * Ultrasound Thyroid, Scheduled: 12/30/24 Functional Status Description No Information Available Mental Status Description No Information Available Referrals Description No Information Available
--- OUTSIDE RECORDS SUMMARY | 2025-07-30 10:03 | XMS_ITS | Patient Health Record ---
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
--- OUTSIDE RECORDS SUMMARY | 2025-07-30 10:03 | XMS_ITS | Clinical Summary ---
Author Organization [facility] Address [address] [place] [address] Care Team Providers Care Tearoom Host Name Role Phone MariTanvir hernandez J Primary Care Provider [phone] Allergies Active Allergy Reactions Criticality Noted Date [...] 64 06/02/2024 8:31 AM EDT Temperature 35.6 C (96.1 F) 06/02/2024 8:31 AM EDT Respiratory Rate 18 06/02/2024 8:31 AM EDT [...] Screening (Mammogram) 12/08/2015 COVID-19 Vaccine ( - 2024-2 6 season) 2025 11/12/2020, 10/22/2020 Influenza Vaccine (#1) 2025 06/14/2020 DTap / Tdap / Td (3 - Td or Tdap) 04/30/2029 04/30/2019, 10/04/2007 Shingrix-Zoster Vaccine Completed 09/08/20, 06/21/2020 Pneumococcal Vaccine Aged Out No long er eligible based on patient's age to complete this topic RSV Ped < 20 months Aged Out No longe r eligible based on patient's age to complete this topic Care Teams Tearoom Host Relationship Specialty Start Date End Date Tanvir Garsia [address] [facility] YAMINI [place] [phone] PCP - General Family Medicine 06/02/24
--- OUTSIDE RECORDS SUMMARY | 2025-07-30 10:03 | XMS_ITS ---
Author Name [facility] Organization Unknown History of Medication Use Medication Directions Dispensed Refills Start Date End Date [facility] meloxicam 15 mg tablet Take 1 tablet every day by oral route as needed, for pain. 09/05/2024 active hydrocodone 5 mg-acetaminophen 325 mg tablet Take 1 tablet every 6-8 hours by oral route as needed. 07/03/2024 active hydroxyzine HCl 25 mg tablet Take 1 tablet 3 times a day by oral route as needed, for itchy rash/hives. 07/03/2024 active Enteric Coated Aspirin 81 mg tablet,delayed release Take 1 tablet twice a day by oral route for 28 days. 06/12/2024 active meloxicam 15 mg tablet Take one tablet daily for 15 days. 06/12/2024 active methocarbamol 750 mg tablet Take 1 tablet every 6 hours by oral route as needed. 06/12/2024 active ondansetron 8 mg disintegrating tablet Take 1 tablet dissolved under the tongue every 8 hours as needed for nausea. 06/12/2024 active oxycodone 5 mg tablet Take 1-2 tablets every 4 hours as needed for pain. 06/12/2024 active pantoprazole 40 mg tablet,delayed release Take 1 tablet every day by oral route as needed. for 28 days. 06/12/2024 active Senokot-S 8.6 mg-50 mg tablet Take 1 tablet twice a day by oral route. 06/12/2024 active tranexamic acid 650 mg tablet Take 3 tablets in the morning for 3 days; start on the first day after your surgery. 06/12/2024 active Tylenol Extra Strength 500 mg tablet Take 2 tablets every 8 hours by oral route for 28 days. 06/12/2024 active citalopram (CeleXA) 20 MG tablet every night at bedtime. 05/25/2024 active Biotin 1 MG CAPS Take by mouth daily. 05/16/2022 active Cholecalciferol (Vitamin D3) 1000 units CAPS Take 25 mcg by mouth. 05/16/2022 active vitamin B-12 (CYANOCOBALAMIN) 100 MCG tablet Take by mouth daily. 05/16/2022 active loratadine (CLARITIN) 10 MG tablet Take 1 tablet (10 mg total) by mouth. 01/06/2021 active albuterol 108 (90 Base) MCG/ACT inhaler Inhale into the lungs 3 (three) times a day as needed. 10/12/2020 active aspirin 81 mg tablet,delayed release TAKE 1 TABLET BY MOUTH TWICE A DAY FOR 28 DAYS 4 completed methocarbamol 750 mg tablet TAKE 1 TABLET BY MOUTH EVERY 6 HOURS NEEDED 4 completed ondansetron 8 mg disintegrating tablet DISSOLVE 1 TABLET DISSOLVED UNDER THE TONGUE EVERY 8 HOURS NEEDED FOR NAUSEA. 4 completed oxycodone 5 mg tablet TAKE 1 TABLET BY MOUTH EVERY 6 HOURS NEEDED 4 active pantoprazole 40 mg tablet,delayed release TAKE 1 TABLET BY MOUTH EVERY DAY NEEDED. FOR 28 DAYS. 4 completed Senexon-S 8.6 mg-50 mg tablet TAKE 1 TABLET BY MOUTH TWICE A DAY 4 completed tranexamic acid 650 mg tablet TAKE 3 TABLETS IN THE MORNING FOR 3 DAYS START ON THE FIRST DAY AFTER YOUR SURGERY. 4 completed azithromycin 250 mg tablet TAKE 2 TABLETS BY MOUTH TODAY, THEN TAKE 1 TABLET DAILY FOR 4 DAYS DIRECTED 4 completed benzonatate 100 mg capsule SWALLOW WHOLE TAKE 1 CAPSULE 3 TIMES A DAY NEEDED *DO NOT BREAK CHEW, DISSOLVE, CUT, OR CRUSH* 4 completed clindamycin HCl 150 mg capsule TAKE 4 CAPS 1 HOUR PRIOR TO APPT 4 completed doxycycline hyclate 100 mg capsule TAKE ONE CAPSULE BY MOUTH TWICE DAILY UNTIL DONE 4 completed prednisone 50 mg tablet TAKE 1 TABLET BY MOUTH DAILY FOR 6 DAYS 4 completed trazodone 50 mg tablet TAKE 1 TABLET BY MOUTH EVERY DAY AT BEDTIME NEEDED FOR SLEEP FOR 30 DAYS 4 completed citalopram 20 mg tablet TAKE 1 TABLET BY MOUTH EVERY DAY 4 completed meloxicam 15 mg tablet active acetaminophen 500 mg tablet TAKE 2 TABLETS EVERY 8 HOURS BY ORAL ROUTE FOR 28 DAYS. active albuterol sulfate HFA 90 mcg/actuation aerosol inhaler INHALE 1 PUFF INTO THE LUNGS 4 TIMES A DAY NEEDED FOR COUH/BRONCOSPASM S active albuterol sulfate HFA 90 mcg/actuation aerosol inhaler INHALE 1 PUFF INTO THE LUNGS 4 TIMES A DAY NEEDED FOR COUH/BRONCOSPASM S active Asmanex Twisthaler 220 mcg/actuation(30 doses) breath activated inhalr INHALE 1 PUFF INHALED DAILY IN THE PM. NOT TO EXCEED 1 PUFF PER DAY (220MCG PER DAY) active Asmanex Twisthaler 220 mcg/actuation(30 doses) breath activated inhalr INHALE 1 PUFF INHALED DAILY IN THE PM. NOT TO EXCEED 1 PUFF PER DAY (220MCG PER DAY) active azithromycin 250 mg tablet TAKE 2 TABLETS BY MOUTH TODAY, THEN TAKE 1 TABLET DAILY FOR 4 DAYS DIRECTED active benzonatate 100 mg capsule SWALLOW WHOLE TAKE 1 CAPSULE 3 TIMES A DAY NEEDED *DO NOT BREAK CHEW, DISSOLVE, CUT, OR CRUSH* active citalopram 10 mg tablet active citalopram 10 mg tablet active citalopram 20 mg tablet TAKE 1 TABLET BY MOUTH EVERY DAY active clindamycin 1 % topical gel APPLY TO ACTEVE AREAS EVERY DAY NEEDED active clindamycin HCl 150 mg capsule TAKE 4 CAPS 1 HOUR PRIOR TO APPT active codeine 10 mg-guaifenesin 100 mg/5 mL oral liquid 5 ML ORALLY EVERY 6 TO 8 HOURS NEEDED FOR COUGH active codeine 10 mg-guaifenesin 100 mg/5 mL oral liquid 5 ML ORALLY EVERY 6 TO 8 HOURS NEEDED FOR COUGH active doxycycline hyclate 100 mg capsule TAKE ONE CAPSULE BY MOUTH TWICE DAILY UNTIL DONE active fluticasone propionate 50 mcg/actuation nasal spray,suspension SPRAY 1 SPRAY INTO EACH NOSTRIL EVERY DAY active fluticasone propionate 50 mcg/actuation nasal spray,suspension SPRAY 1 SPRAY INTO EACH NOSTRIL EVERY DAY active ibuprofen 800 mg tablet TAKE 1 TABLET BY MOUTH 3 TIMES A DAY UNTIL FINISHED active ibuprofen 800 mg tablet TAKE 1 TABLET BY MOUTH 3 TIMES A DAY UNTIL FINISHED active Loratadine-D 10 mg-240 mg tablet,extended release 24 hr 1 tablet every day by oral route. active prednisone 50 mg tablet TAKE 1 TABLET BY MOUTH DAILY FOR 6 DAYS active trazodone 50 mg tablet TAKE 1 TABLET BY MOUTH EVERY DAY AT BEDTIME NEEDED FOR SLEEP FOR 30 DAYS active acetaminophen (TYLENOL EXTRA STRENGTH) 500 MG tablet Take by mouth every 12 (twelve) hours as needed. active Ibuprofen-Acetaminoph en (Acetaminophen-Ibupro fen) 125-250 MG TABS Take by mouth 2 (two) times a day as needed. active Multiple Vitamin (MULTI-VITAMIN DAILY PO) Take 1 tablet by mouth daily. active Allergies Allergen Reaction Severity Comment Documented Date Source Statu s PENICILLIN G SWELLING Treated for dental abscess. Throat felt tight and funny. 06/02/2024 [facility] active AMOXICILLIN-POT CLAVULANATE [facility] AUGMENTIN [facility] METHOCARBAMOL [facility] PENICILLAMINE [facility] Problems Problem Status Onset Date Problem Type Date of Resolution Source Primary osteoarthritis of left knee active EncounterDiagnosisAct [facility] Obesity (BMI 30.0-34.9) active 2024-06-02 ProblemAct [facility] Anxiety active 2024-06-02 ProblemAct [facility] Osteoarthritis active ProblemAct [facility] Tendinitis of hip active 2024-11-07 ProblemAct [facility] Disorder of hip active 2023-12-21 ProblemAct EN S_[facility]ONECT History of total knee arthroplasty active 2024-07-03 ProblemAct [facility] Osteoarthritis of left knee joint active 2023-12-21 ProblemAct [facility] Encounters Encounter Type Encounter Reason Primary Diagnosis Location Date Ambulatory [facility] 07/07/2025 Ambulatory [facility] 06/22/2025 Ambulatory [facility] 03/11/2025 Ambulatory [facility] 03/05/2025 Ambulatory [facility] 02/05/2025 Ambulatory [facility] 12/31/2024 Ambulatory [facility] 11/26/2024 Ambulatory [facility] 09/05/2024 Ambulatory [facility] 07/04/2024 Ambulatory [facility] 07/03/2024 Ambulatory [facility] 06/26/2024 Ambulatory [facility] 06/26/2024 Ambulatory [facility] 06/26/2024 Ambulatory ROUTINE Unilateral prima ry osteoarthritis, left knee [facility] 06/17/2024 Ambulatory [facility] 06/11/2024 Ambulatory [facility] 01/18/2024 Ambulatory [facility] 12/21/2023 Ambulatory [facility] 12/21/2023 Ambulatory [facility] 12/21/2023 Ambulatory [facility] 12/03/2023 Ambulatory [facility] 12/03/2023 Care Team Organization Name Specialty Phone Email Start Date End Da te [facility] 05/19/2024 [facility] 05/19/2024 [facility] 08/01/2022
--- OUTSIDE RECORDS SUMMARY | 2025-07-30 10:03 | XMS_ITS | Data Portability ---
Author Organization [place] [facility] Jodie Mcclelland [place] Address [address] [place] [address] Assessment Encounter Date Assessment Date Assessment LastModified [...] scheduled for left total knee arthroplasty at [facility]. They have significant joint pain, dysfunction [...] seen and evaluated by Jeronimo Das MS, CHELS[facility] in indirect conjunction with [facility] provider Abdi Oneal MD. He agrees [...] seen and evaluated by Jeronimo Das MS, CHE[facility] in indirect conjunction with [facility] provider Abdi Oneal MD. He agrees [...] pain relief in the knee and satisfactory latter day of function in terms of activities of [...] total knee arthroplasty. Continue knee conditioning exercises. [id number] medications as needed. Ultimate failure may occur [...] Organization Details Last Modified Time Details Appointments None recorded. Lab None recorded. Referral None recorded. Procedures injection, hip, fluoro guidance (PROC) - RIGHT ILIOPSOAS FLEXOR TENDON SHEATH injection for flexor tendinitis next to BENJAMIN. CORTIOSONE INJECTION [email or web address] [facility], [address], [place], [address], 5 08:44:20 Surgeries None recorded. Imaging XR, knee, 3 view 2024 025 [email or web address] [facility], [address], [place], [address], 5 15:07:39 XR, knee, 3 view 2023 024 [email or web address] [facility], [address], [place], [address], 4 10:32:38 Medication Orders meloxicam 15 mg tablet 2023 025 [facility]armacy #[id number], [address] [place], [address], 5 15:26:35 hydrocodone 5 mg-acetamin ophen 325 mg tablet 2023 024 [email or web address] [facility]/Pharmacy #[id number], [address] [place], [address], 4 09:21:26 hydroxyzine HCl 25 mg tablet 2023 024 [facility]/Pharmacy #[id number], [address] [place], [address], 4 09:22:12 Patient TargetsNo targets recorded. Patient Instructions Encounter Date Encounter Id Patient Instructions Last Modified By Organization Details Last Modified Time 07/03/2024 [id number] physical therapy * - Diagnosis: Status post left-sided total knee arthroplasty Evaluate and treat as indicated to reduce pain and to improve strength, mobility, stability, range of motion, and function. Please teach a home exercise plan and incorporate PT into patient's exercise routine. 2-3 sessions weekly for 6-8 weeks. [email or web address] Not available 07/10/2024 11:45:55 09/05/2024 [id number] AP, lateral, and patellar radiographs of the left knee taken today demonstrate satisfactory position and alignment of components following left total knee replacement. Not available 09/05/2024 09:42:16 11/07/2024 [id number] AP, lateral, and patellar radiographs of the [...] ation record ed. [email or web address] [facility] [address], [place], [address], 05/21/2024 18:52:08 Result Notes None recorded. Problems Name Problem SNOMED Code Status Onset Date Resolution Date Notes Provider Name and Address Organization Details Recorded Time Osteoarth ritis of left knee joint 00052188045 9109 Active [address], [place], [address] , [place] [facility] 4 12:04:55 Disorder of hip 517681863 Active [address], [place], [address] , [place] [facility] 4 12:05:16 Osteoarth ritis 150198486 Active 2023 Osteoarth ritis Not Available [facility] 5 00:38:03 Obese class I 08709084249 4107 Active 2023 Obesity (BMI 30.0-34.9 ) Not Available [facility] 5 00:38:03 Anxiety 12313923 Active 2023 Anxiety Not Available [facility] 5 00:38:04 History of total knee arthropla sty 45665799118 05 Active 2023 JERONIMO DAS PA-C [address] [facility],[address], [place], [address] , [place] - [facility] 4 09:52:43 Tendiniti s of hip 936204892 Active 2024 Abdi Oneal MD [address] [facility], [place], [address] , [place] [facility] 5 15:06:42 Problem Notes None recorded. Procedures Surgical History Date Name Laterality Status Provider Name and Address Organization Details Recorded Time 06/17/20 24 TOTAL KNEE ARTHROPLASTY (SURG) completed Geeta Dubon [place] [facility] 06/18/2024 09:01:58 Imaging Results None recorded. Procedure Notes None recorded. Medical Equipment None Reported. Allergies Allergen ID Allergen Name Allergen Category Reaction Reaction Severity Criticality Documentation Date Start Date Code Code System Note Provider Name and Address Organization Details Recorded Time 40320 Augmentin medicatio n Not available Not available Not available 07/25/2024 81110 2 RxNorm Caryl Ficarra null, [place] [facility] 4 09:20:39 78487 penicilla mine medicatio n Not available Not available Not available 07/25/2024 7975 RxNorm Caryl Ficarra null, [place] [facility] 4 09:20:48 15825 methocarb lauren medicatio n Not available Not available Not available 07/25/2024 6845 RxNorm Caryl Ficarra null, [place] [facility] 4 09:20:59 69685 amoxicill in / clavulana te medicatio n Not available Not available Not available 06/16/20252023 37474 RxNorm Not Available [facility] 5 01:27:58 29926 penicilli n G Not available Not available Not available Not available 06/16/20252023 7980 RxNorm React ion: Swell ing, sever ity: Unkno wn;Tr eated for denta l absce ss. Throa t felt tight and funn y . Not Available [facility] 5 01:27:59 Medications Name Sig Start Date Stop Date Status Note LastModified by Organization Details LastModified Time doxycycline hyclate 100 mg capsule TAKE ONE CAPSULE BY MOUTH TWICE DAILY UNTIL DONE 06/11 completed Not Available Not Available Not Available cyanocobala min (vit B-12) 100 mcg tablet Take by mouth daily. 2021 active Not Available Not Available Not Avai lable trazodone 50 mg tablet TAKE 1 TABLET BY MOUTH EVERY DAY AT BEDTIME NEEDED FOR SLEEP FOR 30 DAYS 06/11 completed Not Available Not Available Not Available azithromyci n 250 mg tablet TAKE 2 TABLETS BY MOUTH TODAY, THEN TAKE 1 TABLET DAILY FOR 4 DAYS DIRECTED 06/30 completed Not Available Not Available Not Available ibuprofen 800 mg tablet TAKE 1 TABLET BY MOUTH 3 TIMES A DAY UNTIL FINISHED active Not Available Not Available No t Available citalopram 10 mg tablet TAKE 1 TABLET BY MOUTH DAILY active Not Available Not Available No t Available hydrocodone 5 mg-acetamin ophen 325 mg tablet TAKE 1 TABLET BY MOUTH EVERY 6 TO 8 HOURS NEEDED 07/25 completed Not Available Not Available Not Available meloxicam 15 mg tablet TAKE 1 TABLET BY MOUTH EVERY DAY active Not Available Not Available No t Available clindamycin HCl 150 mg capsule TAKE 4 CAPS 1 HOUR PRIOR TO APPT 06/11 completed Not Available Not Available Not Available aspirin 81 mg tablet,abiola yed release TAKE 1 TABLET BY MOUTH TWICE A DAY FOR 28 DAYS 07/25 completed Not Available Not Available Not Available acetaminoph en 500 mg tablet Take by mouth every 12 (twelve) hours as needed. active Not Available Not Available No t Available ondansetron 8 mg disintegrat ing tablet DISSOLVE 1 TABLET DISSOLVED UNDER THE TONGUE EVERY 8 HOURS NEEDED FOR NAUSEA. 07/25 completed Not Available Not Available Not Available citalopram 20 mg tablet TAKE 1 TABLET BY MOUTH DAILY active Not Available Not Available No t Available methocarbam ol 750 mg tablet TAKE [...] Not Available Not Available No t Available loratadine 10 mg tablet Take 1 tablet (10 mg total) by mouth. 2020 active Not Available Not Available Not Avai lable oxycodone 5 mg tablet TAKE 1 TABLET BY MOUTH EVERY 6 HOURS NEEDED 07/25 completed Not Available Not Available Not Available cholecalcif nagi (vitamin D3) 25 mcg (1,000 unit) capsule Take 25 mcg by mouth. 2021 active Not Available Not Available Not Avai lable Loratadine- D 10 mg-240 mg tablet,exte nded [...] completed Not Available Not Available Not Available biotin 1 mg capsule Take by mouth daily. 2021 active Not Available Not Available Not Avai lable ibuprofen 125 mg-acetamin ophen 250 mg tablet Take by mouth 2 (two) times a day as needed. active Not Available Not Available No t Available Vitals Date Recorded Body height Provider Name an d Address Organization Details Last Updated DateTime 11/07/2024 156.21 cm [facility], 11/07/2024 14:48:49 Date Recorded Body height Body mass index (BMI) Body weight Provider Name and Address Organization Details Last Updated DateTime 09/05/2024 156.21 cm 31.8 kg/m2 05959.3 g [facility] 09/05/2024 09:19:33 Social History None recorded. Functional Status None recorded. Mental Status None recorded. Family History Nothing Reported. Medical History No medical history recorded. Gynecological HistoryNo gynecological history recorded. Obstetrics History GPAL:G 0 P 0 0 0 0 Past Encounters Encounter ID Performer Location Encounter Start Date Encounter Closed Date Diagnosis/Indication Diagnosis SNOMED-CT Code Diagnosis ICD10 Code Diagnosis IMO Codes Diagnosis Note [id number] Abdi Oneal MD [address] [place] [address] 12/21/2023 11:22:20 12/21/2023 12:04:22 Pain of right hip joint 2179289242 46530 M25.551 Pain of le ft knee region 0616792252 22929 M25.562 Additional diagnosis detail: Left knee pain, unspecifie d chronicity Osteoarthr itis of left knee joint 5660534109 15985 M17.12 Additional diagnosis detail: Primary osteoarthr itis of left knee Disorder of hip 39785651 6 M24.551 Additional diagnosis detail: Right hip flexor tightness History of repair of hip joint 655698613 Z96.641 Additional diagnosis detail: [place] [id number] [place] [address] [facility] [address] [place] [address] 06/12/2024 11:38:30 06/12/2024 14:24:09 Osteoarthritis of left knee joint 2264295714 66612 M17.12 [id number] [facility] [place] [facility] [address] [address] 07/03/2024 09:21:59 07/03/2024 09:56:23 History of total knee arthroplasty 5473746347 105 Z96.652 [id number] MD AYLA Espinoza [facility] [address] [address] 07/25/2024 09:12:37 07/25/2024 09:36:18 History of total knee arthroplasty 6423871951 105 Z96.652 [id number] MD AYLA Espinoza [facility] [address] [address] 09/05/2024 09:13:45 09/05/2024 09:39:55 History of operative procedure on knee 336590925 Z96.652 [id number] Surgical follow-up 47273 4000 Z47.1 Z96.652 [id number] MD AYLA Espinoza [facility] [address] [address] 11/07/2024 14:38:52 11/07/2024 15:07:39 History of left total knee replacement 3096697406 839282 Z96.652 [id number] Tendinitis of hip 054891 006 M76.891 [id number] Surgical follow-up 94131 4000 Z47.1 Z96.652 [id number] Health Concerns Section Related Observation LastModified by Organization Detai ls LastModified Time None Recorded Concern Status LastModified by Organization Details LastModified Time None Recorded Advance Directives Directive None Recorded Payers Insurance Date Sequence Insurance Name Policy Number Policy Santana Covered Member ID Santana Member ID Guarantor Name 06/30/2025 1 SYD [id number] Hollis Mak [id number] Kindra Mak OBGyn Episode No OBEpisode recorded.
== END 2025-07-30 10:32 | disposition home or self-care (01) ==
LOC: HO.HMCC 09:09
PROVIDERS: PCP Nurse Practitioner Family; Visit Provider Nurse Practitioner Family
DX: Z00.01 Encounter for general adult medical examination with abnormal findings (principal); R53.83 Other fatigue; M25.511 Pain in right shoulder; Z23 Encounter for immunization

== ENCOUNTER 2025-07-30 09:08 | Outpatient (REF) | payer OTHER, SELFPAY ==
--- NOTE | ~2025-07-30 | XR_ITS ---
EXAMINATION: XR SHOULDER, RIGHT CLINICAL INFORMATION: M25.511 - Pain in right shoulder COMPARISON: X-ray 05/09/2023 TECHNIQUE: AP external rotation, Grashey, scapular Y, and axillary views of the right shoulder. FINDINGS: Moderate acromioclavicular arthritis. Glenohumeral joint space is maintained. Degenerative-appearing lucencies in the greater tuberosity. No visible acute fracture or dislocation. Bone mineralization is decreased. No abnormal soft tissue calcification. XR/XR shoulder RT min 2V IMPRESSION: No visible acute osseous findings. Moderate acromioclavicular arthritis Electronically signed by: Roland Lombardi MD 07/30/2025 03:47 PM EST
[2025-07-30 13:18] LABS: MANUAL DIFF FLAG NO
[2025-07-30 13:25] LABS: Hematocrit 42.3 % (37.0-47.0); Hemoglobin 14.0 g/dl (12.0-16.0); Imm Gran Abs Auto 0.01 X10*3/uL (0.00-0.03); Imm Gran Pct Auto 0.2 % (0.0-0.4); Lymphocytes Absolute Auto 2.3 X10*3/uL (1.2-4.9); Mean Corpuscular HGB Conc 33.1 g/dl (31.0-35.0); Mean Corpuscular Hemoglobin 30.3 pg (27.0-33.0); Mean Corpuscular Volume 91.6 fL (80.0-98.0); NRBC Abs Auto 0.000 X10*3/uL (0.0-0.012); NRBC Pct Auto 0.0 /100WBC (0.0-0.2); Platelet Count 295 X10*3/uL (160-400); Red Blood Count 4.62 X10*6/uL (4.20-5.50); White Blood Count 6.1 X10*3/uL (4.8-10.8)
[2025-07-30 13:38] LABS: Appearance Urine Clear; Glucose Urine UA Negative (Negative); PH 7.5 (5.0-9.0); Specific Gravity - Urine 1.020 (1.005-1.025)
[2025-07-30 14:03] LABS: Erythrocyte Sedimentation Rate 7 MM/HR (0-20)
[2025-07-30 14:03] LABS: Alanine Aminotransferase 22 U/L (0-31); Albumin Level 4.5 g/dL (3.5-5.0); Alkaline Phosphatase 71 U/L (39-117); Anion Gap 10 (12-20); Aspartate Amino Transferase 28 U/L (5-31); Blood Urea Nitrogen 15 mg/dL (9-16); Calcium 9.4 mg/dL (8.4-10.2); Carbon Dioxide 27 mmol/L (22-29); Chloride 109 mmol/L (96-108); Cholesterol 207 mg/dL (<200); Estimated Glomerular Filt Rate > 60; Ferritin 72 ng/mL (10-250); HDL Cholesterol 57 mg/dL (>40); Iron 114 mcg/dL (30-160); Percent Iron Saturation 39 % (15-50); Potassium 4.2 mmol/L (3.3-5.1); Sodium 142 mmol/L (135-145); Total Iron Binding Capacity 292 mcg/dL (228-428); Total Protein 7.3 g/dL (6.5-8.0); Triglycerides 60 mg/dL (<150); Unsaturated Iron Binding 178 ug/dL
[2025-07-30 14:15] LABS: Folate 12.2 ng/mL (> or = 4.0); Vitamin B12 1164 pg/mL (200-900)
[2025-07-31 06:28] LABS: Lyme Abs Screen <0.90 index
[2025-08-01 00:23] LABS: A. Phagocytphilium DNA,RT-PCR NOT DETECTED (NOT DETECTED); Babesia Microti DNA, RT-PCR NOT DETECTED (NOT DETECTED); Borrelia Miyamotoi,DNA RT-PCR NOT DETECTED (NOT DETECTED); E.Chaffeensis DNA RT-PCR NOT DETECTED (NOT DETECTED); Lyme(Borrelia ssp)DNA RT-PCR NOT DETECTED (NOT DETECTED)
[2025-08-04 08:43] LABS: Antibody to SS-A Antigen <1.0 NEG AI (<1.0 NEG); Antibody to SS-B Antigen <1.0 NEG AI (<1.0 NEG)
[2025-08-05 15:54] LABS: Anti Nuclear Antibody Screen NEGATIVE (NEGATIVE)
== END 2025-07-30 09:09 | disposition home or self-care (01) ==
LOC: HO.HMGCX 09:08
PROVIDERS: PCP Nurse Practitioner Family; Visit Provider Nurse Practitioner Family
DX: Z00.01 Encounter for general adult medical examination with abnormal findings (principal); M25.511 Pain in right shoulder; R53.83 Other fatigue; M77.01 Medial epicondylitis, right elbow; M25.552 Pain in left hip; M79.672 Pain in left foot; Z23 Encounter for immunization
CPT/HCPCS: 36415; 73030; 80053; 80061; 81003; 82607; 82728; 82746; 83540; 84443; 85025; 85652; 86038; 86140; 86200; 86235; 86431; 86617; 86618; 87468; 87469; 87478; 87484; 87798; 90471; 90656; 96127

== ENCOUNTER → 2025-07-30 10:37 | Outpatient (BNV) | payer OTHER, SELFPAY | PROVIDERS: PCP Nurse Practitioner Family; Visit Provider Radiology Diagnostic Ultrasound | DX: M19.011 Primary osteoarthritis, right shoulder (principal) | CPT/HCPCS: 73030 ==

== ENCOUNTER 2025-09-09 10:20 | Outpatient (REF) | payer OTHER, SELFPAY ==
--- NOTE | ~2025-09-09 | MM_ITS ---
EXAMINATION: MM SCREENING DIGITAL BREAST TOMOSYNTHESIS, BILATERAL CLINICAL INFORMATION: Screening. Asymptomatic. COMPARISON: Mammography: Comparison is made with available priors TECHNIQUE: Digital breast mammography with tomosynthesis is performed in both the craniocaudal and mediolateral oblique views along with computer-aided detection (CAD). FINDINGS: There are scattered areas of fibroglandular density. Right marker clip. There are no significant masses, abnormal calcifications, or other abnormalities. MM/MM tomosynthesis screening BI IMPRESSION: No mammographic evidence of malignancy. ASSESSMENT: BI-RADS Category 2: Benign RECOMMENDATION: Routine annual mammography screening. 1 year F/U This examination should not preclude the clinical evaluation of a suspicious palpable abnormality. This patient's information was entered into a reminder system with a target due date for their next mammogram. Electronically signed by: Maddie Schneider DO 09/09/2025 02:11 PM JENNY
--- OUTSIDE RECORDS SUMMARY | 2025-09-09 12:41 | XMS_ITS | Encounter Summary ---
Author Organization [facility] [employer] [facility] Prior to 07/25/2024 Address [address] [place] [address] Care Team Providers Care Before School Name Role Phone Immanuel Barone MD Primary Care Provider [phone] Encounter Details Date Type Department Care Team Description 10/18/2020 Pt. Non Urgent Medical Question Medicine/Pediatrics - [address] [phone] Amisha Sunshine PA-C [address] [place] [phone] Social History Tobacco Use Types Packs/Day Years Used Date Smoking Tobacco: Never Smokeless Tobacco: Never Alcohol Use Standard Drinks/Week Comments Yes 0 (1 standard drink = 0.6 oz pur e alcohol) 2 per month - glasses of wine Sex Assigned at Date Recorded Female 01/22/2021 7:58 AM E DT Job Start Date Occupation Industry Not on file Not on file Not on file documented as of this encounter Progress Notes * Kelly Reyes M.A. - 10/18/2020 10:10 AM ESTFrom: Kindra Mak To: Amisha Sunshine PA-C Sent: 10/18/2020 10:00 AM EST Subject: Question Tam Lion. I just want to update you, I still have a cough but no where near as bad as it was! My head still hurts and my left sinus is still bothering me, my eye and the left side of my nose still pains me! I'm not sure whether the ZPak did much for me, I don't think it worked last time I had a sinus infection! Regards Jailyn documented in this encounter Plan of Treatment Not on file documented as of this encounter Visit Diagnoses Not on filedocumented in this encounter Care Teams Before School Relationship Specialty Start Date End Date Immanuel Barone MD [address] [place] [address] PCP - General Internal Medicine 01/02/19 documented as of this encounter
--- OUTSIDE RECORDS SUMMARY | 2025-09-09 12:41 | XMS_ITS | Encounter Summary ---
Author Organization [facility] Prior to 07/25/2024 Address [address] [place] [address] Care Team Providers Care Flight Superintendent Name Role Phone Immanuel Barone MD Primary Care Provider [phone] Reason for Referral * EXTERNAL (Routine) - Authorized/Booked Specialty Diagnoses / Procedures Referred By Contjackelin t Referred To Contact Physical Therapy Procedures REFERRAL TO PHYSICAL THERAPY [place] [address] External Phys Thrpy Referral ID Status Reason Start Date Expiration Date V isits Requested Visits Authorized SEE NOTE Authorized/B ooked 02/25/2020 05/27/2020 1 1 Reason for Visit * Reason Onset Date Comments Customs Examiner Feedback 02/25/2020 PT Encounter Details Date Type Department Care Team Description 02/25/2020 Telephone Adult Medicine [facility] [address] [place] [address] Immanuel Barone MD [address] [place] [address] [phone] Customs Examiner Feedback (PT) Social History Tobacco Use Types Packs/Day Years [...] on file documented as of this encounter Miscellaneous Notes * Telephone Encounter - Alyssa Hassanox - 03/01/2020 11:59 AM EDT [facility] calling asking about this referral. Please advise. * Telephone Encounter - Elmer Morales - 02/25/2020 11:33 AM EDT Please review this patients new referral request. The referral has been pended. Please complete thefollowing: If approved> sign order If denied>please give instructions and route to your practice nursing pool. Practice nurse should inform referrals and the patient if denied. * Telephone Encounter - Karis Brannon - 02/25/2020 11:20 AM EDT What insurance does the patient have today? Payor: [employer]/PPO POS / Plan: PPO $0 [place] [id number] / Product Type: PPO [id number] Effective 06/24/09: [facility] will not retro referral requests over 90 days. If request is for this please instruct patient to call the 800# on their insurance card to appeal. Do not submit a request. Referrals cannot be processed if the insurance is not accurate. If the insurance listed above in red is NO BILLING INFORMATION FOUND FOR THIS ENCOUTNER The patients correct insurance must be obtained and registered in [facility] or their referral can not be processed. Is this a retro request? NO. If yes for what date of service do you need the retro referral? N/A Who is calling to request this referral? Patient If the caller is not the patient, what is their name? N/A Ask the patient WHO referred them to this specialty: Patient self referred FIRST and LAST NAME of SPECIALIST PATIENT is seeing: PT What specialty is this? PHYSICAL THERAPY DIAGNOSIS Patient is being seen for (Not a body part or a procedure): HIP AND BACK PAIN Have you seen this SPECIALIST for this PROBLEM/DX before?NO If YES, when: Have you checked REVIEW or the APPT DESK to see if this referral has already been done or has visits left? NO Is this visit:Initial Visit Address of Specialist: [address] [place] [address] Dr. Anel Holguin [id number] Phone # of Specialist:[phone] Fax #: (if applicable):[phone] Does patient have an appointment scheduled?: NO Date of appointment- (including a retro-request): Is this appointment related to: Not MVA, WC or Surgery related documented in this encounter Plan of Treatment Not on file documented as of this encounter Visit Diagnoses Not on filedocumented in this encounter Care Teams Flight Superintendent Relationship Specialty Start Date End Date Immanuel Barone MD [address] [place] [address] PCP - General Internal Medicine 01/02/19 documented as of this encounter
--- OUTSIDE RECORDS SUMMARY | 2025-09-09 12:41 | XMS_ITS | Encounter Summary ---
Author Organization [facility] [facility] Prior to 07/25/2024 Address [address] [place] [address] Care Team Providers Care Chemical Dependency Professional Name Role Phone Luz Elena Brannon MD Primary Care Provider Satnam Christy MD Primary Care Provider Luz Elena Cifuentes MD Primary Care Provider Immanuel Carson MD Primary Care Provider [phone] Encounter Details Date Type Department Care Team Description 03/29/2016 Transfer Records Medical Records [address] [place] [address] Abstract, Provider Social History Tobacco Use Types Packs/Day Years [...] on file documented as of this encounter Plan of Treatment Not on file documented as of this encounter Visit Diagnoses Not on filedocumented in this encounter Care Teams Chemical Dependency Professional Relationship Specialty Start Date End Date Luz Elena Brannon MD PCP - General Internal Medicine 09/30/14 12/14/16 Satnam Chahal MD PCP - General Internal Medicine 12/15/16 10/24/17 LuzE lena Brannon MD PCP - General Internal Medicine 10/25/17 01/01/19 Immanuel Barone MD [address] [place] [address] PCP - General Internal Medicine 01/02/19 documented as of this encounter
--- OUTSIDE RECORDS SUMMARY | 2025-09-09 12:41 | XMS_ITS | Encounter Summary ---
Author Organization [facility] [employer] [facility] Prior to 07/25/2024 Address [address] [place] [address] Care Team Providers Care Entertainment & Media Correspondent Name Role Phone Luz Elena Brannon MD Primary Care Provider Immanuel Carson MD Primary Care Provider [phone] Encounter Details Date Type Department Care Team Description 05/16/2018 Pt. Non Urgent Medical Question Adult Medicine [address] [phone] Immanuel Barone MD [address] [place] [address] [phone] Social History Tobacco Use Types Packs/Day Years [...] as of this encounter Progress Notes * Nina Hirsch M.A. - 05/16/2018 3:16 PM EDTFrom: Kindra Mak To: Immanuel Barone MD Sent: 05/16/2018 3:06 PM EDT Subject: cat scan Good Afternoon Dr Barone. After speaking to my since my visit this morning, is there anyway that the Catscan could bedone sooner. That way if there is a change and something has to be done I will still be in this years deductible that I have met! We have spent so much money on meducal bills this year and really hope that next year we wont occurany out if the ordinary. Thank you Kindest Regards Jailyn Mak documented in this encounter Plan of Treatment Not on file documented as of this encounter Visit Diagnoses Not on filedocumented in this encounter Care Teams Entertainment & Media Correspondent Relationship Specialty Start Date End Date Luz Elena Brannon MD PCP - General Internal Medicine 10/25/17 01/01/19 Immanuel Barone MD [address] [place] [address] PCP - General Internal Medicine 01/02/19 documented as of this encounter
--- OUTSIDE RECORDS SUMMARY | 2025-09-09 12:41 | XMS_ITS | Encounter Summary ---
Author Organization [facility] Prior to 07/25/2024 Address [address] [place] [address] Care Team Providers Care Cloud Services Architect Name Role Phone Immanuel Barone MD Primary Care Provider [phone] Reason for Visit * Reason Onset Date Comments Medication 07/20/2020 Encounter Details Date Type Department Care Team Description 07/20/2020 Refill Gastroenterology [address] [place] [address] Shira Ramos MD Medication Social History Tobacco Use Types Packs/Day Years Used Date Smoking Tobacco: Never Smokeless Tobacco: Never Alcohol Use Standard Drinks/Week Comments Yes 0 (1 standard drink = 0.6 oz pur e alcohol) 2 per month - glasses of wine Sex Assigned at Date Recorded Female 01/22/2021 7:58 AM E DT Job Start Date Occupation Industry Not on file Not on file Not on file COVID-19 Exposure Response Date Recorded In the last month, have you been in contact with someone who was confirmed or suspected to have Coronavirus / COVID-19? No / Unsure 07/21/2020 10:42 AM EDT documented as of this encounter Plan of Treatment Not on file documented as of this encounter Visit Diagnoses Not on filedocumented in this encounter Care Teams Cloud Services Architect Relationship Specialty Start Date End Date Immanuel Barone MD [address] [place] [address] PCP - General Internal Medicine 01/02/19 documented as of this encounter
--- OUTSIDE RECORDS SUMMARY | 2025-09-09 12:41 | XMS_ITS | Encounter Summary ---
Author Organization [facility] [employer] [facility] Prior to 07/25/2024 Address [address] [place] [address] Care Team Providers Care Wooden Shade Hardware Installer Name Role Phone Immanuel Barone MD Primary Care Provider [phone] Reason for Visit * Reason Onset Date Comments Faxed Order 07/13/2020 ati Encounter Details Date Type Department Care Team Description 07/13/2020 Telephone Adult Medicine [facility] [address] [place] [address] [phone] Immanuel Barone MD [address] [place] [address] [phone] Faxed Order (ati) Social History Tobacco Use Types Packs/Day Years [...] or suspected to have Coronavirus / COVID-19? Unable to assess 06/22/2020 9:03 AM EDT documented as of this encounter Miscellaneous Notes * Telephone Encounter - Geeta Maddox - 07/13/2020 10:32 AM EDT Plan of care to be signed and faxed back documented in this encounter Plan of Treatment Not on file documented as of this encounter Visit Diagnoses Not on filedocumented in this encounter Care Teams Wooden Shade Hardware Installer Relationship Specialty Start Date End Date Immanuel Barone MD [address] [place] [address] PCP - General Internal Medicine 01/02/19 documented as of this encounter
--- OUTSIDE RECORDS SUMMARY | 2025-09-09 12:41 | XMS_ITS | Encounter Summary ---
Author Organization [facility] [employer] [facility] Prior to 07/25/2024 Address [address] [place] [address] Care Team Providers Care Customer Training Specialist Name Role Phone Immanuel Barone MD Primary Care Provider [phone] Encounter Details Date Type Department Care Team Description 07/29/2020 Pt. Non Urgent Medical Question Physiatry - [address] [address] Feliz Ferreira PA-C Social History Tobacco Use Types Packs/Day Years [...] have Coronavirus / COVID-19? No / Unsure 07/29/2020 10:19 AM EST documented as of this encounter Progress Notes * Lisa Gallegos M.A. - 07/29/2020 2:47 PM ESTFrom: Kindra Mak To: Feliz Ferreira PA-C Sent: 07/29/2020 12:26 PM EST Subject: Question Hi Dr Kee could you please tell me about the surgery on my hand in case I need it my would like to know what it's all about and be able to research it a bit. Thank you very much Jailyn documented in this encounter Plan of Treatment Not on file documented as of this encounter Visit Diagnoses Not on filedocumented in this encounter Care Teams Customer Training Specialist Relationship Specialty Start Date End Date Immanuel Barone MD [address] [place] [address] [phone] PCP - General Internal Medicine 01/02/19 documented as of this encounter
--- OUTSIDE RECORDS SUMMARY | 2025-09-09 12:41 | XMS_ITS | Encounter Summary ---
Author Organization [employer] [facility] Prior to 07/25/2024 Address [address] [place] [address] Care Team Providers Care Brake Lining Curer Name Role Phone Fletcher Dunlap MD Primary Care Provider Luz Elena Mejia MD Primary Care Provider Satnam Christy MD Primary Care Provider Luz Elena Cifuentes MD Primary Care Provider Immanuel Carson MD Primary Care Provider [phone] Encounter Details Date Type Department Care Team Description 03/23/2014 Materials Supervisor Report Medical Records [address] [place] [address] Julio Solano Social History Tobacco Use Types Packs/Day Years Used Date Smoking Tobacco: Never Smokeless Tobacco: Never Alcohol Use Standard Drinks/Week Comments Yes 0 (1 standard drink = 0.6 oz pur e alcohol) 2 per month - glases of wine Sex Assigned at Date Recorded Female 01/22/2021 7:58 AM E DT Job Start Date Occupation Industry Not on file Not on file Not on file documented as of this encounter Plan of Treatment Not on file documented as of this encounter Visit Diagnoses Not on filedocumented in this encounter Care Teams Brake Lining Curer Relationship Specialty Start Date End Date Fletcher Dunlap MD PCP - General Internal Medicine 12/23/12 09/29/14 Luz Elena Brannon MD PCP - General Internal Medicine 09/30/14 12/14/16 Satnam Chahal MD PCP - General Internal Medicine 12/15/16 10/24/17 Luz Elena Brannon MD PCP - General Internal Medicine 10/25/17 01/01/19 Immanuel Barone MD [address] [place] [address] PCP - General Internal Medicine 01/02/19 documented as of this encounter
--- OUTSIDE RECORDS SUMMARY | 2025-09-09 12:41 | XMS_ITS | Clinical Summary ---
Author Organization [employer] [facility] Prior to 02/21/25 Address [address] [place] [address] Care Team Providers Care Public Employment Mediator Name Role Phone Tanvir Garsia Primary Care Provider [phone] Allergies Active Allergy Reactions Criticality Noted Date [...] age to complete this topic Care Teams Public Employment Mediator Relationship Specialty Start Date End Date Tanvir Garsia [address] [facility] YAMINI Stafford [phone] PCP - General Family Medicine 06/02/24
--- OUTSIDE RECORDS SUMMARY | 2025-09-09 12:41 | XMS_ITS | Encounter Summary ---
Author Organization [facility] Prior to 07/25/2024 Address [address] [place] [address] Care Team Providers Care Foam Fabricator Name Role Phone Immanuel Barone MD Primary Care Provider [phone] Encounter Details Date Type Department Care Team Description 05/15/2019 Orders Only Medical Records [address] [place] [phone] Abstract, Provider Encounter for screening mammogram for high-risk patient Social History Tobacco Use Types Packs/Day Years [...] on file documented as of this encounter Procedures Procedure Name Priority Date/Time Associated Diagnosis Comments SCR MAMMO BI INCL CAD Routine 05/15/2019 Encounter for screening mammogram for high-risk patient documented in this encounter Results * SCR MAMMO BI INCL CAD (05/15/2019) Immanuel Barone MD MAMMOGRAPHY documented in this encounter Visit Diagnoses Diagnosis Encounter for screening mammogram for high-risk patient documented in this encounter Care Teams Foam Fabricator Relationship Specialty Start Date End Date Immanuel Barone MD [address] [place] [address] PCP - General Internal Medicine 01/02/19 documented as of this encounter
--- OUTSIDE RECORDS SUMMARY | 2025-09-09 12:41 | XMS_ITS | Encounter Summary ---
Author Organization [facility] [employer] [facility] Prior to 07/25/2024 Address [address] [place] [address] Care Team Providers Care Dental Assistant Teacher Name Role Phone Immanuel Barone MD Primary Care Provider [phone] Reason for Referral * Non PA (Urgent) - Authorized/Booked Specialty Diagnoses / Procedures Referred By Contjackelin t Referred To Contact Physical Therapy Procedures REFERRAL TO PHYSICAL THERAPY Agusto Phillips PA-C [address] [place] [address] External Phys Thrpy Referral ID Status Reason Start Date Expiration Date V isits Requested Visits Authorized SEE NOTE Authorized/B ooked 07/08/2020 10/09/2020 1 1 Reason for Visit * Reason Onset Date Comments Gold Prospector Feedback 07/08/2020 [facility] Encounter Details Date Type Department Care Team Description 07/08/2020 Telephone Adult Medicine [address] [address] Agusto Phillips PA-C [address] [place], [place] [phone] Gold Prospector Feedback ([facility]) Social History Tobacco Use Types Packs/Day Years [...] encounter Miscellaneous Notes * Telephone Encounter - Elmer Morales - 07/08/2020 2:37 PM EDT Please review this patients new referral request. The referral has been pended. Please complete thefollowing: If approved> sign order If denied>please give instructions and route to your practice nursing pool. Practice nurse should inform referrals and the patient if denied. * Telephone Encounter - Martina Bañuelosde - 07/08/2020 2:28 PM EDT What insurance does the patient have today? Payor: [place]/PPO POS / Plan: PPO $0 [place] [id number] / Product Type: PPO [id number] Effective 06/24/09: [facility] will not retro referral requests over [...] insurance must be obtained and registered in [facility] or their referral can not be processed. Is this a retro request? YES. If yes for what date of service do you need the retro referral? 07/07/2020 Who is calling to request this referral? OFFICE If the caller is not the patient, what is their name? BUBBA Ask the patient WHO referred them to this specialty: Patient saw CARLA PHILLIPS at [facility] for the problem and was told if symptoms did not resolve or worsen they would refer them to this specialty FIRST and LAST NAME of SPECIALIST PATIENT is seeing: [facility], NPI # [id number] What specialty is this? PHYSICAL THERAPY DIAGNOSIS Patient is being seen for (Not a body part or a procedure): BILATERAL LEG PAIN AND WEAKNESS Have you seen this SPECIALIST for this PROBLEM/DX before?NO If YES, when: Have you checked REVIEW or the APPT DESK to see if this referral has already been done or has visits left? YES Is this visit:Initial Visit Address of Specialist:[address] [place] [address], [facility], [place] [address] Phone # of Specialist:[phone] Fax #: (if applicable):[phone] Does patient have an appointment scheduled?: YES Date of appointment- (including a retro-request): 07/07/2020 Is this appointment related to: Not MVA, WC or Surgery related documented in this encounter Plan of Treatment Not on file documented as of this encounter Visit Diagnoses Not on filedocumented in this encounter Care Teams Dental Assistant Teacher Relationship Specialty Start Date End Date Immanuel Barone MD [address] [place] [address] PCP - General Internal Medicine 01/02/19 documented as of this encounter
--- OUTSIDE RECORDS SUMMARY | 2025-09-09 12:41 | XMS_ITS | Encounter Summary ---
Author Organization [facility] Prior to 07/25/2024 Address [address] [place] [address] Care Team Providers Care Automation Control Integrator Name Role Phone Immanuel Barone MD Primary Care Provider [phone] Reason for Visit * Reason Onset Date Comments Prior Authorization 07/20/2020 Encounter Details Date Type Department Care Team Description 07/20/2020 Telephone Gastroenterology [facility] [address] [facility] [facility] [address] [place] [address] Shira Ramos MD Prior Authorization Social History Tobacco Use Types Packs/Day Years [...] encounter Miscellaneous Notes * Telephone Encounter - Renee Tafoya - 08/17/2020 1:25 PM EST Porfirio Ma auth required for screening colonscopy Spoke with Yanira Dong * Telephone Encounter - Amado Jay - 07/20/2020 2:01 PM EDT Will be reviewed closer to dos date * Telephone Encounter - Kaylyn Joe - 07/20/2020 11:04 AM EDT Pre-auth needed Patient is scheduled for a colonoscopy on 09/21/2020 Diagnosis Screening colonoscopy Patients insurance: [facility] PPO Appointment is with Shira Ramos MD Code to process pre-auth for: [id number] Location of procedure: [facility] documented in this encounter Plan of Treatment Not on file documented as of this encounter Visit Diagnoses Not on filedocumented in this encounter Care Teams Automation Control Integrator Relationship Specialty Start Date End Date Immanuel Barone MD [address] [place] [address] PCP - General Internal Medicine 01/02/19 documented as of this encounter
--- OUTSIDE RECORDS SUMMARY | 2025-09-09 12:41 | XMS_ITS | Encounter Summary ---
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) Social History Tobacco Use Types Packs/Day Years [...] on file documented as of this encounter Results * BASIC METABOLIC PANEL (01/31/2019 3:28 PM EDT) GLUCOSE 79 70 - 100 mg/dL 01/31/2019 5:56 PM EDT [facility] Comment:Reference range appl icable to fasting specimens only Blood Urea Nitrogen 16 5 - 25 mg/dL 01/31/2019 5:56 PM EDT [facility] CREAT 0.63 0.5 - 1.1 mg/dL 01/31/2019 5:56 PM EDT [facility] GLOMERULAR FILTRATION RATE > 60 01/31/2019 5:56 PM EDT [facility] Comment: If patient is -Nigerian, multiply result by 1.21 Chronic Kidney Disease: < 60 ml/min/1.73 square meters Kidney Failure: < 15 ml/min/1.73 square meters NA 141 133 - 145 mmol/L 01/31/2019 5:56 PM EDT [facility] K 3.7 3.5 - 5.5 mmol/L 01/31/2019 5:56 PM EDT [facility] CL 108 96 - 110 mmol/L 01/31/2019 5:56 PM EDT [facility] CARBON DIOXIDE (CO2) 26 21 - 32 mmol/L 01/31/2019 5:56 PM EDT [facility] ANION GAP 7 3 - 11 01/31/2019 5:56 PM EDT [facility] CALCIUM 9.4 8.5 - 10.5 mg/dL 01/31/2019 5:56 PM EDT [facility] 01/31/2019 3:28 PM EDT 01/31/2019 3:29 PM EDT Immanuel Barone MD LAB [facility] documented in this encounter Visit Diagnoses Diagnosis Low serum uric acid for age- Primary documented in this encounter Care Teams Teaching Specialists Relationship Specialty Start Date End Date Immanuel Barone MD [address] [place] [address] PCP - General Internal Medicine 01/02/19 documented as of this encounter
--- OUTSIDE RECORDS SUMMARY | 2025-09-09 12:41 | XMS_ITS | Encounter Summary ---
Author Organization [facility] Prior to 07/25/2024 Address [address] [place] [address] Care Team Providers Care Card Cutter Name Role Phone Immanuel Barone MD Primary Care Provider [phone] Reason for Referral * EXTERNAL (Routine) - Authorized/Booked Specialty Diagnoses / Procedures Referred By Contac t Referred To Contact Podiatry Procedures REFERRAL TO PODIATRY (OUT OF NETWORK) Immanuel Barone MD [address] [place] [address] Geovanna Christina. [address] [place] [address] Referral ID Status Reason Start Date Expiration Date V isits Requested Visits Authorized SEE NOTE Authorized/B ooked 07/28/2019 10/29/2019 1 1 Reason for Visit * Reason Onset Date Comments Drilling Supervisor Feedback 07/28/2019 Podiatry Encounter Details Date Type Department Care Team Description 07/28/2019 Telephone Adult Medicine [facility] [place] [facility] [address] [place] [address] [phone] Immanuel Barone MD [address] [place] [address] [phone] Drilling Supervisor Feedback (Podiatry) Social History Tobacco Use Types Packs/Day Years [...] encounter Miscellaneous Notes * Telephone Encounter - Immanuel Barone MD - 07/28/2019 5:50 PM EST Referral placed * Telephone Encounter - Lupis Curtis - 07/28/2019 11:38 AM EST Please review this patients new referral request. The referral has been pended. Please complete thefollowing: If approved> sign order If denied>please give instructions and route to your practice nursing pool. Practice nurse should inform referrals and the patient if denied. * Telephone Encounter - Andrew Mccollumnick - 07/28/2019 10:54 AM EST Patient was told by the internal podiatry department that she would not be able to schedule an appointment withe them as a new patient until September. She did not want to wait until September and is calling today asking if she can get a list of external podiatry offices she can go to before September. What insurance does the patient have today? Payor[place]/PP[place] POS / Plan: PPO $0 [place] [id number] / Product Type: PPO [id number] Effective 06/24/09: [facility] will not retro referral requests over [...] insurance must be obtained and registered in [facility] or their referral can not be processed. Is this a retro request? NO. If yes for what date of service do you need the retro referral? N/A Who is calling to request this referral? The patient If the caller is not the patient, what is their name? N/A Ask the patient WHO referred them to this specialty: Patient spoke to Dr. Barone and was told they would order a referral to this specialty FIRST and LAST NAME of SPECIALIST PATIENT is seeing: What specialty is this? Podiatry DIAGNOSIS Patient is being seen for (Not a body part or a procedure): left foot pain Have you seen this SPECIALIST for this PROBLEM/DX before?NO If YES, when: Have you checked REVIEW or the APPT DESK to see if this referral has already been done or has visits left? YES Is this visit:Initial Visit Address of Specialist: (patient has not set up an appointment yet) Phone # of Specialist: (patient has not set up an appointment yet) Fax #: (if applicable): (patient has not set up an appointment yet) Does patient have an appointment scheduled?: NO Date of appointment- (including a retro-request): Is this appointment related to: Not MVA, WC or Surgery related documented in this encounter Plan of Treatment Not on file documented as of this encounter Visit Diagnoses Not on filedocumented in this encounter Care Teams Card Cutter Relationship Specialty Start Date End Date Immanuel Barone MD [address] [place] [address] PCP - General Internal Medicine 01/02/19 documented as of this encounter
--- OUTSIDE RECORDS SUMMARY | 2025-09-09 12:41 | XMS_ITS | Encounter Summary ---
Author Organization [facility] Prior to 07/25/2024 Address [address] [place] [address] Care Team Providers Care Distribution Dispatcher Name Role Phone Immanuel Barone MD Primary Care Provider [phone] Encounter Details Date Type Department Care Team Description 12/10/2019 Pt. Non Urgent Medical Question Physiatry - [address] [address] Curtis Allison DO Lumbar radiculitis (Primary Dx) Social History Tobacco Use Types [...] as of this encounter Progress Notes * Heather Stephens L.P.N. - 12/11/2019 7:30 AM EDTFrom: Kindra Mak To: Curtis Allison DO Sent: 12/10/2019 5:26 PM EDT Subject: Question So I'm sorry to say but I'm still in pain in my groin and the back of my right knee! I'm miserable! Do you think I'd benefit from therapy Regards Jailyn documented in this encounter Plan of Treatment Scheduled Orders Name Type Priority Associated Diagnoses Orde r Schedule PHYSIATRY PROCEDURE PHYSIATRY Routine Lumbar radiculitis Ordered: 02/10/2020 documented as of this encounter Visit Diagnoses Diagnosis Lumbar radiculitis- Primary Thoracic or lumbosacral neuritis or radiculitis, unspecified documented in this encounter Care Teams Distribution Dispatcher Relationship Specialty Start Date End Date Immanuel Barone MD [address] [place] [address] PCP - General Internal Medicine 01/02/19 documented as of this encounter
--- OUTSIDE RECORDS SUMMARY | 2025-09-09 12:41 | XMS_ITS | Encounter Summary ---
Author Organization [facility] Prior to 07/25/2024 Address [address] [place] [address] Care Team Providers Care Packing Room Inspector Name Role Phone Immanuel Barone MD Primary Care Provider [phone] Reason for Visit * Reason Onset Date Comments Prior Authorization 08/02/2020 Encounter Details Date Type Department Care Team Description 08/02/2020 Telephone Gastroenterology - [place] [address] [place] [address] Shira Ramos MD Prior Authorization [...] AM EST documented as of this encounter Miscellaneous Notes * Telephone Encounter - Maris Hammonds M.A. - 08/02/2020 2:06 PM EST We don't do prior auth for preps, you may already have this [place] [phone] Prior Auth bayron Hammonds M.A. [facility] Prior Authorizations Ext [id number] Fax: [phone] [place] [phone] Prior Smita verma * Telephone Encounter - Kelly Barros - 08/02/2020 9:10 AM EST Prior Authorization for Medication-do not complete and send this encounter unless you have the fax from the pharmacy. Is this a Cover My Meds request: [place] of Medication [id number]/KCL/Sodium JESSICA Dose of Medication What is the RX # from the faxed refill? [id number] How does patient take this med? What Pharmacy did the fax come from: [facility] fax #: [phone] Third Democrat Information from fax: What Prescription Plan does the patient have? [employer]/CoNarrativeauthportal and enter TRX code [id number] BIN/PCN if applicable: Cardholder ID: [id number] Person Code: Relationship Code: Help desk phone: [phone] documented in this encounter Plan of Treatment Not on file documented as of this encounter Visit Diagnoses Not on filedocumented in this encounter Care Teams Packing Room Inspector Relationship Specialty Start Date End Date Immanuel Barone MD [address] [place] [address] PCP - General Internal Medicine 01/02/19 documented as of this encounter
--- OUTSIDE RECORDS SUMMARY | 2025-09-09 12:41 | XMS_ITS | Encounter Summary ---
Author Organization [facility] Prior to 07/25/2024 Address [address] [place] [address] Care Team Providers Care Supervisor Jewelry Department Name Role Phone Immanuel Barone MD Primary Care Provider [phone] Encounter Details Date Type Department Care Team Description 07/31/2019 Cloth Edge Singer Report Medical Records [address] [place] [address] Presley Lara MD [address] [address] Social History Tobacco Use Types Packs/Day Years [...] on filedocumented in this encounter Care Teams Supervisor Jewelry Department Relationship Specialty Start Date End Date Immanuel Barone MD [address] [place] [address] PCP - General Internal Medicine 01/02/19 documented as of this encounter
--- OUTSIDE RECORDS SUMMARY | 2025-09-09 12:41 | XMS_ITS | Encounter Summary ---
Author Organization [facility] Prior to 07/25/2024 Address [address] [place] [address] Care Team Providers Care Museum Docent Name Role Phone Immanuel Barone MD Primary Care Provider [phone] Encounter Details Date Type Department Care Team Description 02/04/2021 Inclusion Internship Report Medical Records [address] [place] [address] Danita Chery, DPM Social History Tobacco Use Types Packs/Day Years [...] on filedocumented in this encounter Care Teams Museum Docent Relationship Specialty Start Date End Date Immanuel Barone MD [address] [place], [place] [phone] PCP - General Internal Medicine 01/02/19 documented as of this encounter
--- OUTSIDE RECORDS SUMMARY | 2025-09-09 12:41 | XMS_ITS | Encounter Summary ---
Author Organization [facility] Prior to 07/25/2024 Address [address] [place] [address] Care Team Providers Care [place] Cutter Name Role Phone Luz Elena Brannon MD Primary Care Provider [facility] Primary Care Provider [phone] Encounter Details Date Type Department Care Team Description 11/06/2017 Release of Information Medical Records [address] [place] [address] Abstract, Provider Social History Tobacco Use Types [...] on filedocumented in this encounter Care Teams [place] Cutter Relationship Specialty Start Date End Date Luz Elena Brannon MD PCP - General Internal Medicine 10/25/17 01/01/19 Immanuel Barone MD [address] [place] [address] [phone] PCP - General Internal Medicine 01/02/19 documented as of this encounter
--- OUTSIDE RECORDS SUMMARY | 2025-09-09 12:41 | XMS_ITS | Encounter Summary ---
Author Organization [facility] Prior to 07/25/2024 Address [address] [place] [address] Care Team Providers Care Salt Machine Operator Name Role Phone Immanuel Barone MD Primary Care Provider [phone] Encounter Details Date Type Department Care Team Description 08/25/2019 [facility] [address] [place] [address] Abstract, Provider Social History Tobacco Use Types [...] on filedocumented in this encounter Care Teams Salt Machine Operator Relationship Specialty Start Date End Date Immanuel Barone MD [address] [place], [place] [phone] PCP - General Internal Medicine 01/02/19 documented as of this encounter
--- OUTSIDE RECORDS SUMMARY | 2025-09-09 12:42 | XMS_ITS | Data Portability ---
Author Organization [place] [facility]od[facility]le[facility]and [facility] Address [address] [place] [address] Assessment Encounter Date Assessment Date Assessment LastModified [...] scheduled for left total knee arthroplasty at [facility]. They have significant joint pain, dysfunction and [...] Das MS, CHELSY in indirect conjunction with [facility] provider Abdi Oneal MD. He [...] Das MS, CHELSY in indirect conjunction with [facility] provider Abdi Oneal MD. He [...] pain relief in the knee and satisfactory zoroastrianism of function in terms of activities of [...] total knee arthroplasty. Continue knee conditioning exercises. Emxl-aqs-evznysm medications as needed. Ultimate failure may occur [...] to BENJAMIN. CORTIOSONE INJECTION 2024 025 [email or web address] [facility], [address], [place], [address], 5 08:44:20 Surgeries None recorded. Imaging XR, knee, 3 view 2024 025 [email or web address] [facility], [address], [place], [address], 5 15:07:39 XR, knee, 3 view 2023 024 [email or web address] [facility], [address], [place], [address], 4 10:32:38 Medication Orders meloxicam 15 mg tablet 2023 025 [facility] #[id number], [address] [place], [address], 5 15:26:35 hydrocodone 5 mg-acetamin ophen 325 mg tablet 2023 024 [email or web address] [facility]acy #[id number], [address] [place], [address], 4 09:21:26 hydroxyzine HCl 25 mg tablet 2023 024 [facility] #[id number], [address] [place], [address], 4 09:22:12 Patient TargetsNo targets recorded. Patient Instructions Encounter Date Encounter Id Patient Instructions Last Modified By Organization Details Last Modified Time 07/03/2024 [id number] physical therapy * - Diagnosis: Status post left-sided total knee arthroplasty Evaluate and treat as indicated to reduce pain and to improve strength, mobility, stability, range of motion, and function. Please teach a home exercise plan and incorporate PT into patient's exercise routine. 2-3 sessions weekly for 6-8 weeks. [email or web address] Not available 07/10/2024 11:45:55 09/05/2024 [id number] AP, lateral, and patellar radiographs of the left knee taken today demonstrate satisfactory position and alignment of components following left total knee replacement. Not available 09/05/2024 09:42:16 11/07/2024 [id number] AP, lateral, and patellar radiographs of the [...] ation record ed. [email or web address] [facility] [address], [place], [address], 05/21/2024 18:52:08 Result Notes None recorded. Problems Name Problem SNOMED Code Status Onset Date Resolution Date Notes Provider Name and Address Organization Details Recorded Time Osteoarth ritis of left knee joint 31034446428 9109 Active [address], [place], [address] , [place] [facility] 4 12:04:55 Disorder of hip 828643834 Active [address], [place], [address] , [place] [facility], [facility] 4 12:05:16 Osteoarth ritis 343745046 Active 2023 Osteoarth ritis Not Available [facility] 5 00:38:03 Obese class I 24467160098 4107 Active 2023 Obesity (BMI 30.0-34.9 ) Not Available [facility] 5 00:38:03 Anxiety 20128179 Active 2023 Anxiety Not Available [facility] 5 00:38:04 History of total knee arthropla sty 80182254609 05 Active 2023 JERONIMO DAS PA-C [address] [facility], [place], [address] , [place] - [facility], [facility] 4 09:52:43 Tendiniti s of hip 077364882 Active 2024 Abdi Oneal MD [address] [facility], [place], [address] , [place] [facility], [facility] 5 15:06:42 Problem Notes None recorded. Procedures Surgical History Date Name Laterality Status Provider Name and Address Organization Details Recorded Time 06/17/20 24 TOTAL KNEE ARTHROPLASTY (SURG) completed Geeta Dubon [place] - [facility] 06/18/2024 09:01:58 Imaging Results None recorded. Procedure Notes None recorded. Medical Equipment None Reported. Allergies Allergen ID Allergen Name Allergen Category Reaction Reaction Severity Criticality Documentation Date Start Date Code Code System Note Provider Name and Address Organization Details Recorded Time 70014 Augmentin medicatio n Not available Not available Not available 07/25/2024 33123 2 RxNorm Caryl Ficarra null, [place] [facility], [facility] 4 09:20:39 50178 penicilla mine medicatio n Not available Not available Not available 07/25/2024 7975 RxNorm Caryl Ficarra null, [place] [facility] 4 09:20:48 36611 methocarb lauren medicatio n Not available Not available Not available 07/25/2024 6845 RxNorm Caryl Ficarra null, [place] [facility] 4 09:20:59 85875 amoxicill in / clavulana te medicatio n Not available Not available Not available 06/16/20252023 55997 RxNorm Not Available [facility] 5 01:27:58 00232 penicilli n G Not available Not available Not available Not available 06/16/20252023 7980 RxNorm React ion: Swell ing, sever ity: Unkno wn;Tr eated for denta l absce ss. Throa t felt tight and funn y . Not Available [facility] 5 01:27:59 Medications Name Sig Start Date [...] Details Last Updated DateTime 11/07/2024 156.21 cm [facility], 11/07/2024 14:48:49 Date Recorded Body height Body mass index (BMI) Body weight Provider Name and Address Organization Details Last Updated DateTime 09/05/2024 156.21 cm 31.8 kg/m2 35684.3 g [facility] 09/05/2024 09:19:33 Social History None recorded. Functional Status None recorded. Mental Status None recorded. Family History Nothing Reported. Medical History No medical history recorded. Gynecological HistoryNo gynecological history recorded. Obstetrics History GPAL:G 0 P 0 0 0 0 Past Encounters Encounter ID Performer Location Encounter Start Date Encounter Closed Date Diagnosis/Indication Diagnosis SNOMED-CT Code Diagnosis ICD10 Code Diagnosis IMO Codes Diagnosis Note [id number] Abdi Oneal MD [address] [place] [address] 12/21/2023 11:22:20 12/21/2023 12:04:22 Pain of right hip joint 4930488840 89916 M25.551 Pain of le ft knee region 3678882551 12863 M25.562 Additional diagnosis detail: Left knee pain, unspecifie d chronicity Osteoarthr itis of left knee joint 4025433643 69444 M17.12 Additional diagnosis detail: Primary osteoarthr itis of left knee Disorder of hip 48512311 6 M24.551 Additional diagnosis detail: Right hip flexor tightness History of repair of hip joint 862096949 Z96.641 Additional diagnosis detail: Status post right hip replacemen t [id number] CHELSY SHE[place] [address] [facility] [address] [place] [address] 06/12/2024 11:38:30 06/12/2024 14:24:09 Osteoarthritis of left knee joint 5812905376 32843 M17.12 [id number] CHELSY SHEFF[place]ELD [facility] [address] [address] 07/03/2024 09:21:59 07/03/2024 09:56:23 History of total knee arthroplasty 7181927570 105 Z96.652 [id number] MD AYLA Espinoza [facility] [address] [address] 07/25/2024 09:12:37 07/25/2024 09:36:18 History of total knee arthroplasty 5754774503 105 Z96.652 [id number] MD AYLA Espinoza [facility] [address] [address] 09/05/2024 09:13:45 09/05/2024 09:39:55 History of operative procedure on knee 606948262 Z96.652 [id number] Surgical follow-up 55124 4000 Z47.1 Z96.652 [id number] MD AYLA Espinoza [facility] [address] [address] 11/07/2024 14:38:52 11/07/2024 15:07:39 History of left total knee replacement 7178226223 964307 Z96.652 92480360 Tendinitis of hip 235043 006 M76.891 [id number] Surgical follow-up 39607 4000 Z47.1 Z96.652 [id number] Health Concerns Section Related Observation LastModified by Organization Detai ls LastModified Time None Recorded Concern Status LastModified by Organization Details LastModified Time None Recorded Advance Directives Directive None Recorded Payers Insurance Date Sequence Insurance Name Policy Number Policy Santana Covered Member ID Santana Member ID Guarantor Name 06/30/2025 1 SYD [id number] Hollis Mak [id number] Kindra Mak OBGyn Episode No OBEpisode recorded.
--- OUTSIDE RECORDS SUMMARY | 2025-09-09 12:42 | XMS_ITS | Encounter Summary ---
Author Organization [facility] Prior to 07/25/2024 Address [address] [place] [address] Care Team Providers Care Clinical Nursing Instructor Name Role Phone Luz Elena Brannon MD Primary Care Provider Immanuel Carson MD Primary Care Provider [phone] Reason for Visit * Reason Onset Date Comments Prior Authorization 10/26/2017 Encounter Details Date Type Department Care Team Description 10/26/2017 Telephone Cardiology - [address] [address] Luz Elena Brannon MD Prior Authorization Social History Tobacco Use [...] encounter Miscellaneous Notes * Telephone Encounter - Linda Yuan - 11/01/2017 4:26 PM EST Echo completed 10/27/17 * Telephone Encounter - Pedro Prado - 10/26/2017 12:57 PM EST BCBS No auth Req [id number] * Telephone Encounter - Linda Yuan - 10/26/2017 10:56 AM EST Does the echocardiogram require prior-auth? Pt is scheduled for [facility] 10/27/17. Thank you documented in this encounter Plan of Treatment Not on file documented as of this encounter Visit Diagnoses Not on filedocumented in this encounter Care Teams Clinical Nursing Instructor Relationship Specialty Start Date End Date Luz Elena Brannon MD PCP - General Internal Medicine 10/25/17 01/01/19 Immanuel Barone MD [address] [place] [address] PCP - General Internal Medicine 01/02/19 documented as of this encounter
--- OUTSIDE RECORDS SUMMARY | 2025-09-09 12:42 | XMS_ITS | Encounter Summary ---
Author Organization [facility] Prior to 07/25/2024 Address [address] [place] [address] Care Team Providers Care Resilient Tile Installer Name Role Phone Immanuel Barone MD Primary Care Provider [phone] Reason for Visit * Reason Onset Date Comments other 02/12/2020 Encounter Details Date Type Department Care Team Description 02/12/2020 Telephone Physiatry - [place] [address] [place] [address] Curtis Allison DO other Social History Tobacco Use Types Packs/Day Years [...] encounter Miscellaneous Notes * Telephone Encounter - Ruth العلي M.A. - 02/12/2020 1:28 PM EDT Patient aware that it will be under local. * Telephone Encounter - Kayden Ruffin - 02/12/2020 1:19 PM EDT Patient questioning if she will be sedated for upcoming procedure. Please advise documented in this encounter Plan of Treatment Not on file documented as of this encounter Visit Diagnoses Not on filedocumented in this encounter Care Teams Resilient Tile Installer Relationship Specialty Start Date End Date Immanuel Barone MD [address] [place] [address] PCP - General Internal Medicine 01/02/19 documented as of this encounter
--- OUTSIDE RECORDS SUMMARY | 2025-09-09 12:42 | XMS_ITS | Encounter Summary ---
Author Organization [facility] Prior to 07/25/2024 Address [address] [facility] [place] [address] Care Team Providers Care Telephonic Rn Name Role Phone Satnam Chahal MD Primary Care Provider Luz Elena Cifuentes MD Primary Care Provider Immanuel Carson MD Primary Care Provider [phone] Encounter Details Date Type Department Care Team Description 10/11/2017 SCAN Medical Records [address] [place] [address] Abstract, Provider Social History Tobacco Use Types [...] on filedocumented in this encounter Care Teams Telephonic Rn Relationship Specialty Start Date End Date Satnam Chahal MD PCP - General Internal Medicine 12/15/16 10/24/17 Luz Elena Brannon MD PCP - General Internal Medicine 10/25/17 01/01/19 Immanuel Barone MD [address] [place], [place] [address] PCP - General Internal Medicine 01/02/19 documented as of this encounter
--- OUTSIDE RECORDS SUMMARY | 2025-09-09 12:42 | XMS_ITS | Patient Health Record ---
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
--- OUTSIDE RECORDS SUMMARY | 2025-09-09 12:42 | XMS_ITS | Continuity of Care Document ---
Author Organization [facility] [address] 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 Tobacco Use Start: Unknown Never Smoked Cigarettes ETOH Use Rarely consumed liquor in e past Allergies and adverse reactions Active Allergies Criticality Reaction Severity Comments Date Amoxicillin Unable to assess criticality Anaphylaxis Severe 09/03/2023 Augmentin Unable to assess criticality Severe 09/03/2023 Penicillin Unable to assess criticality Severe 09/03/2023 Medications Active Medications SIG Qnty Indications Ordering Provider Date Citalopram Nqldnajhgtww48ua Tablets Take 1 Tablet By Mouth Every Day Tanvir Garsia Albuterol Sulfate SZX182(90Base) mcg/Act Aerosol Kang Andrews MD Vital Signs [...]
--- OUTSIDE RECORDS SUMMARY | 2025-09-09 12:42 | XMS_ITS | Encounter Summary ---
Author Organization [facility] Prior to 07/25/2024 Address [address] [place] [address] Care Team Providers Care Racecourse Barrier Attendant Name Role Phone Satnam Chahal MD Primary Care Provider Luz Elena Cifuentes MD Primary Care Provider Immanuel Carson MD Primary Care Provider [phone] Reason for Referral * Non PA (Routine) - Authorized/Booked Specialty Diagnoses / Procedures Referred By Contjackelin t Referred To Contact Gastroenterology Procedures REFERRAL TO GASTROENTEROLOGY Satnam Chahal MD [address] [place] [address] Gastro/[address] [address] Referral ID Status Reason Start Date Expiration Date V isits Requested Visits Authorized [id number] Authorized/B ooked 01/03/2017 01/03/2018 1 1 Reason for Visit * Reason Onset Date Comments REFERRAL 01/03/2017 gastro Encounter Details Date Type Department Care Team Description 01/03/2017 Telephone Adult Medicine [address] [address] Satnam Chahal MD REFERRAL (gastro) Social History Tobacco Use Types Packs/Day Years [...] encounter Miscellaneous Notes * Telephone Encounter - Radha Ash M.A. - 01/03/2017 3:03 PM EDT Message left for patient to return call. * Telephone Encounter - Satnam Chahal - 01/03/2017 12:13 PM EDT Plase let pt know that referal to gastro done for GERD * Telephone Encounter - Ana Maria Dubois M.A. - 01/03/2017 9:36 AM EDT Please review and advise. * Telephone Encounter - Violet Pimentel - 01/03/2017 9:11 AM EDT Caller requesting call back from provider: Dr Chahal Is the caller the patient? YES Reason for call back: Patient asking for referral to gastro for heartburn discussed at in November Caller offered to speak with the nurse for assistance: YES Response: Patient offered to speak with nurse for assistance and patient agreed. Message forwarded to nurse. documented in this encounter Plan of Treatment Not on file documented as of this encounter Visit Diagnoses Not on filedocumented in this encounter Care Teams Racecourse Barrier Attendant Relationship Specialty Start Date End Date Satnam Chahal MD PCP - General Internal Medicine 12/15/16 10/24/17 Luz Elena Brannon MD PCP - General Internal Medicine 10/25/17 01/01/19 Immanuel Barone MD [address] [place] [address] PCP - General Internal Medicine 01/02/19 documented as of this encounter
== END 2025-09-09 10:21 | disposition home or self-care (01) ==
LOC: HO.MAMMO 10:20
PROVIDERS: PCP Nurse Practitioner Family; Visit Provider Nurse Practitioner Family
DX: Z12.31 Encounter for screening mammogram for malignant neoplasm of breast (principal)
CPT/HCPCS: 77063; 77067

== ENCOUNTER → 2025-09-09 10:30 | Outpatient (BNV) | payer OTHER, SELFPAY | PROVIDERS: PCP Nurse Practitioner Family; Visit Provider Internal Medicine | DX: Z12.31 Encounter for screening mammogram for malignant neoplasm of breast (principal) | CPT/HCPCS: 77063; 77067 ==

== ENCOUNTER 2025-09-21 10:41 | Outpatient (REF) | payer OTHER, SELFPAY ==
--- NOTE | ~2025-09-21 | XR_ITS ---
EXAMINATION: Bilateral hand 3 views. CLINICAL INDICATION: Head pain. COMPARISON: None. TECHNIQUE: 3 views each hand. LEFT HAND: There is loss of PIP and DIP joints with mild periarticular spurring DIP joint third through fifth digits. No bony erosive changes or soft tissue calcification seen. There is mild osteopenia. There is minimal soft tissue swelling PIP joints second through fourth digits. RIGHT HAND: There is loss of PIP and DIP joint space with periarticular spurring DIP joints second through fifth digits and PIP joint first digit. There is osteopenia. No fracture, loose bodies, soft tissue calcification seen. There is minimal soft tissue swelling in PIP and DIP joints. No fracture or lytic process. XR/XR Hand Bilat min 3v IMPRESSION: Degenerative arthritic changes PIP and DIP joints of both hands. No visible acute fracture, dislocation or subluxation seen. The soft tissues are normal. Electronically signed by: Alvaro Alba MD 09/21/2025 11:23 AM [facility]
--- OUTSIDE RECORDS SUMMARY | 2025-09-21 12:13 | XMS_ITS | Continuity of Care Document ---
Author Organization [facility] [address] [facility] [address] [place] [address] Phone [phone] Care Team Providers Care Conditioning Machine Operator Name Role Phone Tanvir Garsia Care Team Information Stringed Instrument Repairer + [phone] Problems Active Problems Provider Date Vitamin B12 deficiency (non anaemic) GABBY Leiva Onset: 09/03/2023 Thyroid nodule GABBY Aguilar Onset: 2022 H/O: depression GABBY Aguilar Onset: 2022 Anxiety GABBY Aguilar Onset: 2022 Social History Type Date Description Comments Sex Female Sex Unknown 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 Tobacco Use Start: Unknown Never Smoked Cigarettes ETOH Use Rarely consumed liquor in e past Allergies and adverse reactions Active Allergies Criticality Reaction Severity Comments Date Amoxicillin Unable to assess criticality Anaphylaxis Severe 09/03/2023 Augmentin Unable to assess criticality Severe 09/03/2023 Penicillin Unable to assess criticality Severe 09/03/2023 Medications Active Medications SIG Qnty Indications Ordering Provider Date Citalopram Mqqhkusleoft40hr Tablets Take 1 Tablet By Mouth Every Day Tanvir Garsia Albuterol Sulfate XBD216(90Base) mcg/Act Aerosol Kang Andrews MD Vital Signs [...]
--- OUTSIDE RECORDS SUMMARY | 2025-09-21 12:13 | XMS_ITS | Clinical Summary ---
Author Organization [employer] [facility] Prior to 02/21/25 Address [address] [place] [address] Care Team Providers Care Composition Instructor Name Role Phone Tanvir Garsia Primary Care Provider [phone] Allergies Active Allergy Reactions Criticality Noted Date [...] age to complete this topic Care Teams Composition Instructor Relationship Specialty Start Date End Date Tanvir Garsia [address] [facility] YAMINI Stafford [id number] PCP - General Family Medicine 06/02/24
--- OUTSIDE RECORDS SUMMARY | 2025-09-21 12:14 | XMS_ITS | Patient Health Record ---
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
--- OUTSIDE RECORDS SUMMARY | 2025-09-21 12:14 | XMS_ITS | Data Portability ---
Author Organization [place] [facility] Jodie Mcclelland [place] Address [address] [place] [address] Assessment Encounter Date Assessment Date Assessment LastModified [...] Das MS, CHELSY in indirect conjunction with [facility] provider Abdi [place] MD. He [...] Das MS, CHELSY in indirect conjunction with [facility] provider Abdi [place] MD. He [...] pain relief in the knee and satisfactory methodist of function in terms of activities of [...] total knee arthroplasty. Continue knee conditioning exercises. Nhwh-vha-fatswip medications as needed. Ultimate failure may occur [...] to BENJAMIN. CORTIOSONE INJECTION 2024 025 [email or web address] [facility], [address], [place], [address], 5 08:44:20 Surgeries None recorded. Imaging XR, knee, 3 view 2024 025 [email or web address] [facility], [address], [place], [address], 5 15:07:39 XR, knee, 3 view 2023 024 [email or web address] [facility], [address], [place], [address], 4 10:32:38 Medication Orders meloxicam [address] [facility][id number], [address] [place], [address], 5 15:26:35 hydrocodone 5 mg-acetamin ophen 325 mg tablet 2023 024 [email or web address] [facility] #[id number], [address] [place], [address], 4 09:21:26 hydroxyzine HCl 25 [address] [facility] #[id number], [address] [place], [address], 4 09:22:12 Patient TargetsNo targets recorded. Patient Instructions Encounter Date Encounter Id Patient Instructions Last Modified By Organization Details Last Modified Time 07/03/2024 [id number] physical therapy * - Diagnosis: Status post left-sided total knee arthroplasty Evaluate and treat as indicated to reduce pain and to improve strength, mobility, stability, range of motion, and function. Please teach a home exercise plan and incorporate PT into patient's exercise routine. 2-3 sessions weekly for 6-8 weeks. [email or web address] Not available 07/10/2024 11:45:55 09/05/2024 [id number] AP, lateral, and patellar radiographs of the left knee taken today demonstrate satisfactory position and alignment of components following left total knee replacement. Not available 09/05/2024 09:42:16 11/07/2024 [id number] AP, lateral, and patellar radiographs of the [...] ation record ed. [email or web address] [facility] [address], [place], [address], 05/21/2024 18:52:08 Result Notes None recorded. Problems Name Problem SNOMED Code Status Onset Date Resolution Date Notes Provider Name and Address Organization Details Recorded Time Osteoarth ritis of left knee joint 90283147843 9109 Active [address], [place], [address] , [place] [facility] 4 12:04:55 Disorder of hip 201566182 Active [address], [place], [address] , [place] [facility] 4 12:05:16 Osteoarth ritis 676928042 Active 2023 Osteoarth ritis Not Available [facility] 5 00:38:03 Obese class I 23730923869 4107 Active 2023 Obesity (BMI 30.0-34.9 ) Not Available [facility] 5 00:38:03 Anxiety 06696934 Active 2023 Anxiety Not Available [facility] 5 00:38:04 History of total knee arthropla sty 52008841162 05 Active 2023 JERONIMO DAS PA-C [address] [facility], [place], [address] , [place] - [facility] 4 09:52:43 Tendiniti s of hip 027039952 Active 2024 Abdi [place] MD [address] [facility] [address], [place], [address] , [place] - [facility] 5 15:06:42 Problem Notes None recorded. Procedures Surgical History Date Name Laterality Status Provider Name and Address Organization Details Recorded Time 06/17/20 24 TOTAL KNEE ARTHROPLASTY (SURG) completed Geeta Dubon [place] - [facility] 06/18/2024 09:01:58 Imaging Results None recorded. Procedure Notes None recorded. Medical Equipment None Reported. Allergies Allergen ID Allergen Name Allergen Category Reaction Reaction Severity Criticality Documentation Date Start Date Code Code System Note Provider Name and Address Organization Details Recorded Time 56564 Augmentin medicatio n Not available Not available Not available 07/25/2024 97475 2 RxNorm Caryl Ficarra null, [place] - [facility] 4 09:20:39 70747 penicilla mine medicatio n Not available Not available Not available 07/25/2024 7975 RxNorm Caryl Ficarra null, [place] [facility] 4 09:20:48 65485 methocarb lauren medicatio n Not available Not available Not available 07/25/2024 6845 RxNorm Caryl Ficarra null, [place] [facility] 4 09:20:59 45941 amoxicill in / clavulana te medicatio n Not available Not available Not available 06/16/20252023 62005 RxNorm Not Available [facility] 5 01:27:58 87222 penicilli n G Not available Not available Not available Not available 06/16/20252023 7980 RxNorm React ion: Swell ing, sever ity: Unkno wn;Tr eated for denta l absce ss. Throa t felt tight and funn y . Not Available [facility] 5 01:27:59 Medications Name Sig Start Date [...] Available Not Available pantoprazol e 40 mg tablet,aibola yed release TAKE 1 TABLET BY MOUTH [...] Details Last Updated DateTime 11/07/2024 156.21 cm [facility], 11/07/2024 14:48:49 Date Recorded Body height Body mass index (BMI) Body weight Provider Name and Address Organization Details Last Updated DateTime 09/05/2024 156.21 cm 31.8 kg/m2 43281.3 g [facility] 09/05/2024 09:19:33 Social History None recorded. Functional Status None recorded. Mental Status None recorded. Family History Nothing Reported. Medical History No medical history recorded. Gynecological HistoryNo gynecological history recorded. Obstetrics History GPAL:G 0 P 0 0 0 0 Past Encounters Encounter ID Performer Location Encounter Start Date Encounter Closed Date Diagnosis/Indication Diagnosis SNOMED-CT Code Diagnosis ICD10 Code Diagnosis IMO Codes Diagnosis Note [id number] Abdi [place] MD [address] [place] [address] 12/21/2023 11:22:20 12/21/2023 12:04:22 Pain of right hip joint 6654429874 34173 M25.551 Pain of le ft knee region 2963455227 28790 M25.562 Additional diagnosis detail: Left knee pain, unspecifie d chronicity Osteoarthr itis of left knee joint 1084046686 96982 M17.12 Additional diagnosis detail: Primary osteoarthr itis of left knee Disorder of hip 67171041 6 M24.551 Additional diagnosis detail: Right hip flexor tightness History of repair of hip joint 078294095 Z96.641 Additional diagnosis detail: [place] [id number] CHELSY [place] [address] [facility] [address] [place] [address] 06/12/2024 11:38:30 06/12/2024 14:24:09 Osteoarthritis of left knee joint 1828296292 98297 M17.12 [id number] CHELSY SHEFFIELD [facility] [address] [address] 07/03/2024 09:21:59 07/03/2024 09:56:23 History of total knee arthroplasty 9094694252 105 Z96.652 [id number] MD AYLA Espinoza [facility] [address] [address] 07/25/2024 09:12:37 07/25/2024 09:36:18 History of total knee arthroplasty 0455736944 105 Z96.652 [id number] MD AYLA Espinoza [facility] [address] [address] 09/05/2024 09:13:45 09/05/2024 09:39:55 History of operative procedure on knee 611281272 Z96.652 [id number] Surgical follow-up 36947 4000 Z47.1 Z96.652 [id number] MD AYLA Espinoza [facility] [address] [address] 11/07/2024 14:38:52 11/07/2024 15:07:39 History of left total knee replacement 1209536940 273363 Z96.652 01474978 Tendinitis of hip 693557 006 M76.891 [id number] Surgical follow-up 88032 4000 Z47.1 Z96.652 [id number] Health Concerns Section Related Observation LastModified by Organization Detai ls LastModified Time None Recorded Concern Status LastModified by Organization Details LastModified Time None Recorded Advance Directives Directive None Recorded Payers Insurance Date Sequence Insurance Name Policy Number Policy Santana Covered Member ID Santana Member ID Guarantor Name 06/30/2025 1 SYD [id number] Hollis Mak [id number] Kindra Mak OBGyn Episode No OBEpisode recorded.
== END 2025-09-21 10:42 | disposition home or self-care (01) ==
LOC: HO.HMGCX 10:41
PROVIDERS: PCP Nurse Practitioner Family; Visit Provider Student in an Organized Health Care Education/Training Program
DX: M79.641 Pain in right hand (principal); M79.642 Pain in left hand
CPT/HCPCS: 73130

== ENCOUNTER → 2025-09-21 10:45 | Outpatient (BNV) | payer OTHER, SELFPAY | PROVIDERS: PCP Nurse Practitioner Family; Visit Provider Radiology Diagnostic Radiology | DX: M19.041 Primary osteoarthritis, right hand (principal); M19.042 Primary osteoarthritis, left hand | CPT/HCPCS: 73130 ==